=== PATIENT | female | born 1985 | race Caucasian/White ===

== ENCOUNTER 2023-08-27 09:44 | Outpatient (OUT) | payer OTHER, SELFPAY ==
[2023-08-27 10:06] LABS: Basophils Absolute Auto 0.1 10^3/uL (0.0-0.1); Basophils Percent Auto 1.2 % (0.2-2.0); Eosinophils Absolute Auto 0.1 10^3/uL (0.0-0.7); Eosinophils Percent Auto 1.7 % (0.9-7.0); Hematocrit 39.7 % (36.0-48.0); Hemoglobin 13.8 g/dL (12.0-16.0); Immature Granulocytes Abs Auto 0.01 10^3/uL (0.00-0.03); Immature Granulocytes Pct Auto 0.2 % (0.0-0.5); Lymphocytes Percent Auto 33.9 % (20.5-60.0); Mean Corpuscular HGB Conc 34.8 g/dL (29.9-35.2); Mean Corpuscular Hemoglobin 29.7 pg (26.7-34.0); Mean Corpuscular Volume 85.6 fL (81.0-99.0); Mean Platelet Volume 10.2 fL (9.5-13.5); Monocytes Absolute Auto 0.5 10^3/uL (0.3-0.8); Monocytes Percent Auto 8.7 % (1.7-12.0); Neutrophils Absolute Auto 3.1 10^3/uL (1.4-6.5); Neutrophils Percent Auto 54.3 % (43.0-75.0); Platelet Count 179 10^3/uL (150-450); Red Blood Count 4.64 10^6/uL (4.20-5.40); Red Cell Distribution Width 12.4 % (11.0-15.0); White Blood Count 5.8 10^3/uL (4.0-11.0)
[2023-08-27 10:15] LABS: Estimated Average Glucose 103 mg/dL; Glycohemoglobin A1C 5.2 % (4.5-6.2)
[2023-08-27 11:06] LABS: Potassium 4.1 mmol/L (3.5-5.1); Sodium 139 mmol/L (136-145)
[2023-08-27 11:07] LABS: Anion Gap 10.7; Calcium 8.8 mg/dL (8.5-10.1); Carbon Dioxide 30.4 mmol/L (21.0-32.0); Chloride 102 mmol/L (98-107); Estimated GFR (African America >60 (>=60); Estimated GFR (Non-African Ame >60 (>=60); Glucose 87 mg/dL (74-106)
[2023-08-27 11:08] LABS: Alanine Aminotransferase 24 U/L (14-59); Albumin Globulin Ratio 1.2; Alkaline Phosphatase 96 U/L (46-116); Aspartate Amino Transferase 13 U/L (15-37); Bilirubin Total 0.4 mg/dL (0.2-1.0); Globulin 3.3 g/dL; Total Protein 7.3 g/dL (6.4-8.2); Triglycerides 81 mg/dL (<=150); VLDL CHOLESTEROL 16.2 mg/dL
[2023-08-27 11:09] LABS: Chol HDL Ratio 2.5; Cholesterol 198 mg/dL (<=200); Free T3 3.21 pg/mL (2.18-3.98); HDL Cholesterol 80 mg/dL (40-60); Thyroid Stimulating Hormone 1.228 uIU/mL (0.358-3.740)
== END 2023-08-27 09:45 | disposition home or self-care (01) ==
LOC: LAB 09:51
PROVIDERS: PCP Family Medicine; Visit Provider Family Medicine
DX: Z00.00 Encounter for general adult medical examination without abnormal findings (principal)
CPT/HCPCS: 36415; 80053; 80061; 83036; 84436; 84443; 84481; 85025

== ENCOUNTER 2023-10-21 22:24 | Emergency (ER) | payer OTHER, SELFPAY ==
[2023-10-21 22:40] VITALS: BP 127/71; PULSE 81; RESP 16; TEMP 37.1; O2SAT 99
--- NOTE | 2023-10-22 00:41 | ED.GENADUL1 ---
HPI - General Adult General Chief complaint: Headache Stated complaint: Headache Time Seen by Provider: 10/22/23 00:36 Source: patient Mode of arrival: walk-in Limitations: no limitations History of Present Illness HPI narrative: presents complaining of a migraine. history of migraine. Took Fioricet and it did not help this time. has nausea but no vomiting . No fever. No paresthesia of her upper or lower extremities Related Data Home Medications Medication Instructions Recorded Confirmed pknxfppjvu-snxegfwrhvvvv-cmvzslkg tab 10/21/23 50 mg-325 mg-40 mg tablet pantoprazole 40 mg tablet,delayed mg PO 10/21/23 release quetiapine 50 mg tablet mg 10/21/23 rosuvastatin 5 mg tablet mg 10/21/23 sertraline 100 mg tablet mg 10/21/23 Allergies Allergy/AdvReac Type Severity Reaction Status Date / Time penicillin G Allergy Verified 10/21/23 22:43 meperidine [From Demerol] AdvReac Verified 10/21/23 22:43 Review of Systems ROS Status of ROS 10 or more systems reviewed and unremarkable except as noted in history and below PFSH PFS Social History Smoking status: Never smoker Exam Constitutional Vital Signs, click to edit/add: Last Vital Signs Temp 98.7 F 10/21/23 22:40 Pulse 72 10/22/23 02:08 Resp 16 10/22/23 02:08 BP 127/71 10/21/23 22:40 Pulse Ox 98 10/22/23 02:08 O2 Del Method Room Air 10/21/23 22:40 Common normals: no apparent distress, average body habitus, oriented x3, no limitations, healthy appearing, alert and well nourished Eye Common normals: PERRL, EOMs intact bilaterally and conjunctivae normal Respiratory Common normals: normal respiratory effort, no retractions, no use of accessory muscles and clear to auscultation bilaterally Cardio Common normals: regular rate, regular rhythm, S1 normal heart sound and S2 normal heart sound GI Common normals: Normal to inspection, nondistended, normoactive bowel sounds present and soft to palpation Extremity Common normals: normal to inspection and full ROM Neuro Common normals: oriented x3, CN's II-XII intact bilaterally, moves all extremities and no focal motor deficits Psych Appearance: grossly normal Course Vital Signs Vital signs: Vital Signs Temperature 98.7 F 10/21/23 22:40 Pulse Rate 81 10/21/23 22:40 Respiratory Rate 16 10/21/23 22:40 Blood Pressure 127/71 10/21/23 22:40 Pulse Oximetry 99 10/21/23 22:40 Oxygen Delivery Method Room Air 10/21/23 22:40 Temperature 98.7 F 10/21/23 22:40 Pulse Rate 72 10/22/23 02:08 Respiratory Rate 16 10/22/23 02:08 Blood Pressure 127/71 10/21/23 22:40 Pulse Oximetry 98 10/22/23 02:08 Oxygen Delivery Method Room Air 10/21/23 22:40 Medical Decision Making MDM Narrative Medical decision making narrative: patient presents with migraine headache. similar to past migraines. exam normal. Treated successfully and is now requesting to go home. discharged home to follow up with her doctor Lab Data Labs: Lab Results 10/22/23 Range/Units 00:48 WBC 7.8 (4.0-11.0) 10^3/uL RBC 4.78 (4.20-5.40) 10^6/uL Hgb 14.0 (12.0-16.0) g/dL Hct 41.5 (36.0-48.0) % MCV 86.8 (81.0-99.0) fL MCH 29.3 (26.7-34.0) pg MCHC 33.7 (29.9-35.2) g/dL RDW 12.3 (11.0-15.0) % Plt Count 218 (150-450) 10^3/uL MPV 10.7 (9.5-13.5) fL Neut % (Auto) 48.2 (43.0-75.0) % Lymph % (Auto) 40.9 (20.5-60.0) % Baldwin % (Auto) 8.1 (1.7-12.0) % Eos % (Auto) 1.7 (0.9-7.0) % Baso % (Auto) 1.0 (0.2-2.0) % Neut # (Auto) 3.8 (1.4-6.5) 10^3/uL Lymph # (Auto) 3.2 (1.2-3.8) 10^3/uL Baldwin # (Auto) 0.6 (0.3-0.8) 10^3/uL Eos # (Auto) 0.1 (0.0-0.7) 10^3/uL Baso # (Auto) 0.1 (0.0-0.1) 10^3/uL Abs Immat Gran (auto) 0.01 (0.00-0.03) 10^3/uL Imm/Tot Granulo (auto) 0.1 (0.0-0.5) % Sodium 140 (136-145) mmol/L Potassium 3.8 (3.5-5.1) mmol/L Chloride 103 (98-107) mmol/L Carbon Dioxide 30.2 (21.0-32.0) mmol/L Anion Gap 10.6 BUN 15.0 (7.0-18.0) mg/dL Creatinine 0.70 (0.55-1.02) mg/dL Est GFR ( Amer) >60 (>=60) Est GFR (Non-Af Amer) >60 (>=60) BUN/Creatinine Ratio 21.4 Glucose 97 (74-106) mg/dL Calcium 9.1 (8.5-10.1) mg/dL Discharge Plan Discharge Chief Complaint: Headache Clinical Impression: Migraine Patient Disposition: Home, Self-Care Prescriptions / Home Meds: No Action sertraline 100 mg tablet ofppiibqfw-wifmlgnjffbaf-eols 50-325-40 mg tablet pantoprazole 40 mg tablet,delayed release (DR/EC) PO rosuvastatin 5 mg tablet quetiapine 50 mg tablet Instructions: Migraine Headache (ED) Stand Alone Forms: Portal Instructions Referrals: Silverio Mtz MD [Primary Care Provider] - 1 week
[2023-10-22] MEDS: MAGNESIUM SULFATE IN WATER 2 GM/50 ML PREMIX IV (00:56)
[2023-10-22] MEDS: METHYLPREDNISOLONE SOD SUCC PF 125 MG/2 ML VIAL IVP (00:57)
[2023-10-22] MEDS: DIPHENHYDRAMINE HCL 50 MG/ML (1ML) VIAL IV (00:57)
[2023-10-22 01:01] LABS: Basophils Absolute Auto 0.1 10^3/uL (0.0-0.1); Eosinophils Absolute Auto 0.1 10^3/uL (0.0-0.7); Eosinophils Percent Auto 1.7 % (0.9-7.0); Hematocrit 41.5 % (36.0-48.0); Immature Granulocytes Abs Auto 0.01 10^3/uL (0.00-0.03); Immature Granulocytes Pct Auto 0.1 % (0.0-0.5); Lymphocytes Absolute Auto 3.2 10^3/uL (1.2-3.8); Lymphocytes Percent Auto 40.9 % (20.5-60.0); Mean Corpuscular HGB Conc 33.7 g/dL (29.9-35.2); Mean Corpuscular Hemoglobin 29.3 pg (26.7-34.0); Mean Corpuscular Volume 86.8 fL (81.0-99.0); Mean Platelet Volume 10.7 fL (9.5-13.5); Monocytes Absolute Auto 0.6 10^3/uL (0.3-0.8); Monocytes Percent Auto 8.1 % (1.7-12.0); Neutrophils Absolute Auto 3.8 10^3/uL (1.4-6.5); Neutrophils Percent Auto 48.2 % (43.0-75.0); Platelet Count 218 10^3/uL (150-450); Red Blood Count 4.78 10^6/uL (4.20-5.40); Red Cell Distribution Width 12.3 % (11.0-15.0); White Blood Count 7.8 10^3/uL (4.0-11.0)
[2023-10-22 01:08] LABS: Anion Gap 10.6; BUN Creatinine Ratio 21.4; Calcium 9.1 mg/dL (8.5-10.1); Carbon Dioxide 30.2 mmol/L (21.0-32.0); Chloride 103 mmol/L (98-107); Estimated GFR (African America >60 (>=60); Estimated GFR (Non-African Ame >60 (>=60); Glucose 97 mg/dL (74-106); Potassium 3.8 mmol/L (3.5-5.1); Sodium 140 mmol/L (136-145)
[2023-10-22] MEDS: METOCLOPRAMIDE HCL 10 MG/2 ML VIAL IVP (01:20)
[2023-10-22 02:08] VITALS: PULSE 72; RESP 16; O2SAT 98
[2023-10-22 02:19] VITALS: BP 126/80; PULSE 67; RESP 16; O2SAT 98
== END 2023-10-22 02:20 | disposition home or self-care (01) ==
PROVIDERS: Emergency Provider Internal Medicine; PCP Family Medicine
DX: G43.909 Migraine, unspecified, not intractable, without status migrainosus (principal); Z79.899 Other long term (current) drug therapy
CPT/HCPCS: 36415; 80048; 85025; 96365; 96375; 99284; J2930

== ENCOUNTER 2023-11-27 15:16 | Outpatient (OUT) | payer OTHER, SELFPAY ==
--- NOTE | 2023-11-27 15:22 | MR_ITS ---
The [address] [address] Patient Name: GRETA BEGUM MRN: [id number] date: 1985 Sex: F Assigned Patient Location: MRI Current Patient Location: Accession/Order Number: [id number] Exam Date: 11/27/2023 15:30 Report Date: 11/28/2023 05:10 At the request of: SADIA PARISI Procedure: MR head/brain wo con EXAM: MR head/brain wo con INDICATION: 38 years old; Female. Symptom/Location/Duration: migraine G43.909 chronic migraine, worsening for 2 years. TECHNIQUE: Multiplanar MRI brain was performed without contrast administration.. Comparison: None. FINDINGS: POSTOPERATIVE CHANGES: None. BRAIN PARENCHYMA: No restricted diffusion. No mass effect. No midline shift or herniation. No hemosiderin deposition. There is normal shen/white differentiation. VENTRICLES/EXTRA-AXIAL: Normal for patient's age. VESSELS: There is flow void seen in the distal vertebral and basilar arteries as well as the distal internal carotid arteries. This study cannot exclude the presence of an intracranial aneurysm. SINUSES/MASTOIDS: The visualized sinuses are clear. Mastoids and middle ears are clear. MSK: Bone marrow signal is within normal limits. OTHER: None. MR/MR head/brain wo con IMPRESSION: 1. No restricted diffusion, mass effect, or hemosiderin deposition. Electronically authenticated by: SOSA WILL Date: 11/28/2023 05:10
--- OUTSIDE RECORDS SUMMARY | 2023-11-27 15:38 | XMS_ITS | CCD ---
Author Name Unknown Address [address] [place] [address] Organization [facility] Care Team Providers Care Guidance Services Coordinator Name Role Phone Sadia Mtz Primary Care Physician Sadia Mtz Unavailable Emily Andrade Unavailable DR SADIA MTZ Primary Care Unavailable ISAK, DR MCCULLOUGH Admitting Unavailable ISAK, DR MCCULLOUGH Attending Unavailable ISAK, DR MCCULLOUGH Consulting Unavailable KRYSTYNA NUNEZ Attending Unavailable JOSH .KRYSTYNA Admitting Unavailable ELIJAH, DR TARA Langley Consulting Unavailable ISAK, DR MCCULLOUGH Primary Care Unavailable KRYSTYNA NUNEZ Consulting Unavailable ISAK, DR MCCULLOUGH Admitting Unavailable ISAK, DR MCCULLOUGH Attending Unavailable ISAK, DR MCCULLOUGH Consulting Unavailable ISAK, DR MCCULLOUGH Primary Care Unavailable STEFANO GUILLEN Attending Unavailable STEFANO GUILLEN Admitting Unavailable SAM, DR JUANITO Pizano Consulting Unavailable ISAK, DR MCCULLOUGH Primary Care Unavailable STEFANO GUILLEN Consulting Unavailable Krystyna Moreno Referring Unavailable JerricaeKrystyna Attending Unavailable Krystyna Moreno Attending Unavailable Krystyna Moreno MDarryl Referring Unavailable Jerricae Krystyna MDarryl Admitting Unavailable Krystyna Moreno Attending Unavailable Allergies Allergy Classification Reported Allergen(s) Allergy Type Date of Onset Reaction(s) Facility (4 sources) Meperidine; Translations: [meperidine] Drug Allergy Unknown [facility] (4 sources) Penicillin; Translations: [penicillin] Drug Allergy Unknown (qualifier value) [facility] (2 sources) Penicillin V Drug Allergy anaphylaxis [facility] Other (1 source) Meperidine Drug Allergy [facility] (1 source) Penicillins Drug allergy (disorder) [facility] Medications Current Medications Medication Drug Class(es) Dates Sig (Normalized) Sig (Original) Fioricet (5 sources) Barbiturate, Central Nervous System Stimulant, Methylxanthine Start: 03-20-2022 Fioricet Oral, q4hr, Refill(s) 0 Start Date: 03/20/22 Status: Ordered take 1 capsule by mouth every fo ur hours Esgic 50-325-40 MG 1 capsule as needed Orally every 4 hrs Active meloxicam 15 mg oral tablet (2 sources) Nonsteroidal Anti-inflammatory Drug take 1 tablet by mouth every twenty-four hours Mobic 15 MG 1 tablet Orally Once a day Active pantoprazole 40 mg delayed release oral tablet (4 sources) Proton Pump Inhibitor Start: take 1 mg by mouth once daily Protonix 40 mg Tab-DR mg tab(s), Oral, Daily, Refills(s) 0 Start Date: 03/20/22 Status: Ordered take 1 tablet by isabel th every twenty-four hours Protonix 40 MG 1 tablet Orally Once a day Active Protonix 40 mg Tab-DR (1 source) Start: 03-20-2022 take 1 mg by mouth once daily Protonix 40 mg Tab-DR mg tab(s), Oral, Daily, Refills(s) 0 Start Date: 03/20/22 Status: Ordered QUEtiapine 50 mg oral tablet (5 sources) Atypical Antipsychotic Start: 03-20-2022 take 1 mg by mouth twice daily SEROquel 50 mg Tab mg tab(s), Oral, BID, Refills(s) 0 Start Date: 03/20/22 Status: Ordered take 1 tablet by isabel th every twenty-four hours SEROquel 50 MG 1 tablet at bedtime Orally Once a day only take half Active rosuvastatin calcium 5 mg oral tablet (5 sources) HMG-CoA Reductase Inhibitor Start: 03-20-2022 take 1 mg by mouth once daily Crestor 5 mg Tab mg tab(s), Oral, Daily, Refills(s) 0 Start Date: 03/20/22 Status: Ordered take 1 tablet by isabel th every twenty-four hours Crestor 5 MG 1 tablet Orally Once a day Active sertraline 100 mg oral tablet (5 sources) Serotonin Reuptake Inhibitor Start: 03-20-2022 take 1 mg by mouth once daily Zoloft 100 mg Tab mg tab(s), Oral, Daily, Refills(s) 0 Start Date: 03/20/22 Status: Ordered take 2 tablets by [facility] every twenty-four hours Zoloft 100 MG 2 tablet Orally Once a day Active Completed/Discontinued Medications Medication Drug Class(es) Dates Sig (Normalized) Sig (Original) ciprofloxacin 500 mg oral tablet (2 sources) Quinolone Antimicrobial Start: 12-03-2022 take 1 tablet by mouth every twenty-four hours Cipro 500 mg Tab 500 mg = 1 tab(s), Oral, q24hr, Take 1 pill the day before the procedure and 1 pill after the procedure., # 2 tab(s), Refills(s) 0, Pharmacy: [facility] 1155, 161, cm, 10/02/22 9:51:00 EST, Height/Length Dosing, 52, kg, 10/02/22 9:51:00 EST, Weight Dosing Start Date: 12/03/22 Status: Ordered Triamcinolone (4 sources) Corticosteroid Start: 02-08-2022 Kenalog -40 mg Jan, 40 mg Start: 06-28-2021 Kenalog -40 mg Jun, 40 mg Problems Active Problems Problem Classification Problem Date Documented Date Episodic/Chronic Calculus of urinary tract (8 sources) Kidney stone; Translations: [Calculus of kidney] Onset: 03-20-2022 Episodic Genitourinary symptoms and ill-defined conditions (12 sources) Blood in urine; Translations: [Gross hematuria] Onset: 02-16-2022 Episodic Joint disorders and dislocations; trauma-related (4 sources) Patellofemoral stress syndrome; Translations: [Patellofemoral disorders, right knee] Chronic Unclassified (2 sources) CONTACT W/AND (SUSP) EXPOS COVID-19; Translations: [CONTACT W/AND (SUSP) EXPOS COVID-19] Onset: 03-28-2022 Unclassified (2 sources) Asymptomatic microscopic hematuria 10-02-2022 Viral infection (1 source) COVID-19; Translations: [COVID-19] Onset: 03-28-2022 Past or Other Problems Problem Classification Problem Date Documented Da te Episodic/Chronic Abdominal pain (1 source) Unspecified abdominal pain; Translations: [UNSPECIFIED ABDOMINAL PAIN] Onset: 02-19-2022 Episodic Other aftercare (1 source) Other [facility] (current[facility] drug therapy; Translations: [OTH SEPTIC T[employer] CLEANER CURRENT DRUG THERAPY] Onset: 02-19-2022 Episodic Other non-traumatic joint disorders (2 sources) Pain in right knee; Translations: [Acute pain of right knee] Episodic Residual codes; unclassified (1 source) Acquired absence of both cervix and uterus; Translations: [ACQUIRED ABSENCE BOTH CERVIX AND UTERUS] Onset: 02-19-2022 Episodic Unclassified (1 source) CONTACT W/AND (SUSP) EXPOS COVID-19; Translations: [CONTACT W/AND (SUSP) EXPOS COVID-19] Onset: 03-26-2022 Results Test Name Value Interpretation Reference Range Facility Coding Summary.on 12-20-2022 Coding Summary. [id number] Gh0bWw+PGhlYWQ+PE1FV DWpN96eiIFfuO2PL4dGU B2LHNWDZLIWZX1TDI5mj GN7KMqhX3YinlRn XnuftFNxLT30NQb6FDD1 fMtsUVkkyN6bdCNoT2f5 BwNvMO22pG70YWrkVWHn DbM9HwJyxozskJMl K9fgUuEqyYNkWkj+PHRh YmxlIHdpZHRoPScxMDAl YpSdmGgfVW8dGj2fLHKv LWNvbGxhcHNlOiBj w5hhBWUxIOebJW1faRrh A9QsmRK7QNLex1n9Wz10 dHI+LMRqTJG1xCgzHCnh j426OgQqr5hqWMP4 vOPpUWvwYSD9J61nz8T9 ICDhLFFpILY2xOD5mL4i iWjmsqygD2MhnYIpMvN2 VAB7tUApqD7hiWko utbbfN8jSls+L50ALW0Y PTUISW7IJvv4V1HvXdfr dHI+BX37SVVnRS60tJKj oHXpv2qlrSn4YvQd PNWcPYV7fWteLHmik9Az GYDwZ20jyISud9A6VOTh eKimhGZtOjUrqRI7nI2c AZryaabdr6oywvzo Foztx7aynr61wR80L79w LDleWWReCLK6HMKsIMJr tAynho7eeJ2oZb5+IDxj e0cku6kkxYe8WdIn UXJciwMnyYmwVNI3p6Ra Uq48G7IrxXomz7IyKxl3 bt48lKNbo4A2sGD9TJzv BGKslQ5jCFwfDyE0 PTDhArNdqO22cSVlSQky Vx9ejPviaOfrBM5iEXOd jythOYZfdZ0wRQRxaTQm hApyPY7jVAMeandf a142RoCtLBL8UBSaxNSr A2VwdI1xImNhLRPqBCSs C0MgmTYqVNczF778RNox SjM6EFApieDqI1De OFTqpWxzKvE3u7Z0Mw3D x7NbxvxmOLW5VXeaBGGs TiB6AkZwHzW9O7BcPqi9 TTDpoPmwTF0lQ7Hv DNGxilmawxulqEF3GSHr ENGekR87pRYdLBzfPd0z f9D9d519FDMiUORshV69 Vq7zeYuiFAPviQXS qH9zaahzz8lfoqhaYtXr MBMzAJs1MZn7OHAruDgs MaTiQNP3YcQ4DPB2cMUm yZ0osMvaupgycU8t Oyc+X55yvN7qTEQ5ILD4 mvhhHXPxwkOoPK89FK49 Y8VoKwsliHMvnTW+PGRp fpTfdPbbBS8xHkHr i2sqn2ItKAyvI6HhRXDh YHqwXid0EUWmIUN5eRO8 vQ9nAILlGDcaw6S8oHB6 X9MjddFbiy9ht8ec AQOfWYhcW13hfWIcu1P3 UMAmlRV5VOBsxVqiOuPq mO05Pqh+DXBhlTiun5Of Rixnz1kbh4qwmAj4 IjMwJSIgdmFsaWduPSJ0 p9BzSv44C04oGDcfLHFx NAFuWYKvCDAmvFsnxc8e pA1cHi0+PGNvbCB3 kZL6aD3hFAKlEsI8AQde A799ZvDuaNImDgecd2hk l5ftvXx6VdTvQGRrfeKp nZelDTL2r5MtVv71 I58dPQazATOmBIXkWTOh NZCbgOpvig6szZ3qKp9+ HM9fl8aqyd91hU92hNT+ QAIaEHD1sZpkHVzp CMRnhR9hWCfoPaQ9CEBx IzIgyY05hXFjCEhmCu6z cDowyMxuRH3gZXArcapk k822BjLhx4huELRe bAOjAIylCCY2M79jf7M7 MRQhZDYyCBR5lXH9qK9w bGlnbjogbGVmdDsgdmVy iPguZKcpNQzvK837 IHRvcDsnPlBhdGllbnQg DzVuKKa7C6UbZdq3JVWa fVycXX5ukNJzMWalRd2m eQhlhCwlVE7wICMj bygcv446NrMch6aiJZDd yWDhLJzwRJU5Z56pw5Q3 JDTkNBWmZSP9zWD3hP1p bGlnbjogbGVmdDsg zkIecDhgBCvvMFmoP662 IHRvcDsnPkJpcnRoIERh lBW6WC08AV20nLDdg9W1 hYQ7V6FnBXOxfbmi nygbaSN2ISBxMVKjrZ09 Ms2ufJvuDi0qVADaIRQ8 IJXqmRBeJ7JgoK2zFiDh SVDxSFLjN0KrySCw AQzaO834KPamIdD1EBJv emXbA5MkFMIggCzxChL5 p6Q9Ld9SC9E2KX08XZ05 aRZdh1A6bCD3Z0Xn DOYeqvilbqxciAH8BYFp OICggN78Gh6pbLgsRj4q QPKtYZF2CRSmrYSyG9Tf dK0bHmSsJGAdKFYx E8AfyKUvVJkjB091CQtz YjB3WYPkgyGeU7EvCLZz lWreVlY0r0J4Me6MVXa6 LJ12YZ07fPOmh8W3 wZG3X4FwEQGkvqdocfle vMX1QWUkDGWxaB81Iu7b yBggOu9nOXPgURG7XRDq yXWtU1IwjD7nIeGu GHPaNQSnN3AlqIJkFAeg G539JQbaHkF4HVKxxiJv S2MbMWChmAruBoK1i7F2 La9UZGTbHM52TAO2 lME5AA48NV55B4PrKisu dGFibGU+PHRhYmxlIHdp ZHRoPScxMDAlJyBzdHls HN4rIx1tHWFvATPm qFkjnUJmRgZnf1icLREq RFivPS1ehNkqL0NjjCT6 DHLmk8e4Wo05F23rA0Oe dXA+GMKadKI6aFV9 wS7vJuZvEmJ7WXxlG738 LxLhfQIqJivuz1pmk4op lLr3RyY4JOWlghSqwIdx KUR5p4EhDz88N80u IHdpZHRoPSIxNSUiIHZh mMfjeb7tbQ6fDy3+PGNv uTN8jDR7hV2dNhGtWjC7 BJivI779FzDxkWLq Kazlm9jmv8myyYs8SlOv BOHkonQedQbrGJK3n1Pk Mb69I3LnnFgtb0MxKhv8 zx18kDQfs1A5gGQ2 V6KhIRQwxeturXJmnVit UX0xDFOnbvxwAOOcrR7f SOKuT3f1DwHiQeB5TAhu V3RacmM0IGIhaVWb FOwgUNQ2S49xl4Y8EQNk RRBrREF0tAR4gT7ifOua bjogbGVmdDsgdmVydGlj FWlvDObbL143HETr yGwsPUCvlF6uZVMduNLv tZncZM4aCFLgnjhdCkYE HoBmSAULMJKCZK9RBDZM LB66KT89vVHcz4P6 eFH8D9CsKREpyqecmuky fHR6HOOcPUDkzO18wTOb IEnmWp8db9J2j718SHEf FXZzdA99Gj1wqGfd AVBrqZSMuT3zubyij1pp awioPjGjVXLtCFh4QZn8 EUNguWopBaWyOFF4QaJ9 RTT6qZHgxP7nlCrr crtlnO3oFuu+MDgvMTEv SLo6TWyzoHZ+PHRkIHN0 kXwtEVnhPLFvhJ8pAEXs Q3t9UbGbKgS4NBil S8NbMWEemncmIw08iH4f OwNpObQ8KAquQ3YkatT4 EDMesNIaQVulDWO9S70y l9V4SSJxUNFgOMC0 yXK0cI3woJgpprokkJWt dDsgdmVydGljYWwtYWxp I520CHVdoKffGdU6BRhm LQBgWI07ZF63zLTv s7Y9lGG8K6LwZGHfwszr yjxryJJ0CMTuTRExaH43 sLXsNTjtSn0ag8J8n151 BMStECCmuH84Tt9i xBxhNAAxiYXTiG6zveot s9nfngqsPdUiGBZnINy6 PHb0PBUotEpaJzApKCP8 BdA6VXX5sUPwyP9b wCociviqhI2yEmx+RmVt QMxeZU46EM40kJVfu6W8 pCE5C9QcMNPrxrafiylx uAT8HLUcNYSjiZ20 xULuXTjoCa5ll7X5d113 NZHbEPNieO74Tp2rdVef WMOyjVUQtP7qtqfrj4oa cjogIzAwMDAwMDt0 GYj0LAQrpEdgViYiMYU3 LiJ0ELT0zLWapU9zwAcl khhmvN3cCoo+C5M2zGW6 aWVudDwvdGQ+PC90 ud58Y6HwPssfHkw9NWKp VBM6hTY2hS0vWASyPTts r6L1vPA2U3NtloJnov0x h3wkWDLlEQxtE09d tXPsb9D4TQWrqAK6RBNx vNnoMaTccU55Nzy+PGNv zFuyv6UcKlsmx4cvs8rj wQn6XrGyALKmpoAa dIegQPL7e2FzHw89U51b IHdpZHRoPSIzMCUiIHZh qGrupj0ayH1zEr0+PGNv gXR3vDZ5aT4pAvKd CkD3LQbwQ517QiLauTMy Hacmv5jxx5acnMw1KpAr PAWeztAymMzrXNM0p4Ph Jq69K5JypOmrk7Hw Ord0ky82tXLvx8B4dYU8 F2IjNTMzbwldzAXyiBpu GO3uGUQwokljVWOhqC6v BVAeP7j7PgObWsR4 KQxvZ9ApdeY5URZkcBNj GNZloEHXeO7frbvmy9gi nhvhLoGbDZUfSJw9YJq9 LWFsaWduOiBsZWZ0 BrX8FHW2jPQzzI6alSud qlwvxI2kPfq+HMo1q6ot iQRuLW0eeON7SJ59BW53 aLXgj0I2kRG2E2Pp AMDazzowzsiicDB5QJRe IMBniS61Xr2coZmzKf8k APZwJCB0IHFjyDFiS8Uc wT3yIhXzTXTwYXKr X8GpvYZdEVkbV610HFfp HjZ0VLMvwuIhY3NhEDGq mDkuBiF2j3L1Ir0SDO90 YR53RQ29bSNwt1R7 nVQ1D8HjFZFhxxgffomg hBK0YTCmYZMgiV80Jz5j bImnNh6dVEEbFUZ8ALAk mAAsT3VfxC7eLuEy YSXfMUArR2JjhZXmBSux R239WHkoPpN4DQOruhDe L8KiOETnlUcnTlM4p0A7 Do6EOi05RR03RJ84 pGObz3F7vRA4Z5BiZTTx doyvlnqzqJB1KTDvYTPm gS48Tr0xiWjzAb7mRBQm LQH9YDFxoTXnC4Fs wC6jNjWeJOVkWONbD6Aa lGMcYVmlR405JFcxVbW0 FGZfquPfD9KqYCHzfMzr KlY5n8B2Ww0CRTtk ufv0B4QmQqsldJI+PC90 RXUeZJ51iDLzdHDeo9xk vIu9UyHzTDUzJCA9qAcr LJsjx2VyDKWxU83t bGFw (more content not included)... Normal [facility] Consent for Procedure/Surger yon 12-19-2022 Consent for Procedure/Surgery [id number] #1.00CD:127 Normal [facility] IntraOperative Documentson 0 12-19-2022 IntraOperative Documents [id number] #1.00CD:127 Normal [facility] Consent for Treatmenton 11-25 Consent for Treatment [id number] #1.00CD:127 Normal [facility] Inpatient Patient Summaryon 12-16-2022 Inpatient Patient Summary [address] [address] Clinical Summary Person Information Name: EMILY BEGUM Age: 37 Years : 1985 Sex: Female PCP: Sadia Mtz MD Marital Status: Race: White Ethnicity: Non- or Language: Greenlandic Visit Id: Visit Reason: HX RECURRENT UTI MICROSCOPIC HEMATURIA Speciality: Acuity: Enc Type: Outpatient Med Service: Surgery Arrival: 12/16/2022 08:34:49 Discharge: Dispo Type: Address: [address] [place] [id number] Provider Notes: Diagnosis: Asymptomatic microscopic hematuria; History of recurrent UTIs Problems Active Asymptomatic microscopic hematuria History of recurrent UTIs Kidney stones Smoking Status: Functional Status: Sensory Deficits: History of Falls: Mobility Assistance Prior to Admission: ADLs: Current Level of Assistance for Self-Care/Mobility: Cognitive Status: Allergies meperidine (Unknown) penicillin (Unknown) Laboratory or Other Results This Visit (last charted value for your 12/16/2022 visit) No Laboratory or Other Results This Visit Measurements: Height: Weight: Blood Pressure: Not Valued / Not Valued BMI: Procedures No Procedures Documented Immunizations No Immunizations Documented This Visit Final Med List: APAP/butalbital/caff eine (Fioricet) By Mouth every 4 hours. ciprofloxacin (Cipro 500 mg Tab) 1 Tablets By Mouth every 24 hours. Take 1 pill the day before the procedure and 1 pill after the procedure.. Refills: 0. pantoprazole (Protonix 40 mg Tab-DR) By Mouth every day. quetiapine (SEROquel 50 mg Tab) By Mouth 2 times a day. rosuvastatin (Crestor 5 mg Tab) By Mouth every day. sertraline (Zoloft 100 mg Tab) By Mouth every day. Care Team Members: Attending Physician: Krystyna Moreno MD Consulting Physician: Referring Physician: Krystyna Moreno MD Follow up: With: Address: When: Krystyna Moreno [address] [place] [phone] Business (1) [address], [place] [address], [place] [phone] Business (1) Comments: Office to schedule follow up in 3-6 months Type Location Start [facility] Office Visit [facility] 10/08/2023 10:00 AM 10/08/2023 10:15 AM Confirmed Patient Education Information: EU - Cystoscopy Discharge Instructions (CUSTOM) Normal [facility] Main OR Intraoperative Recor don 12-16-2022 Main OR Intraoperative Record IntraOp Document Type FTURO Summary Primary Physician: Krystyna Moreno MD Finalized Date/Time: 12/16/22 09:31:42 Pt. Name: EMILY BEGUM/Sex: 1985 Female Med Rec #: [id number] Physician: Krystyna Moreno MD Financial #: [id number] Pt. Type: O Room/Bed: / Admit/Disch: 12/16/22 08:34:49 - Institution: Case Times FTURO Entry 1 Patient Times In Room 12/16/22 09:08:00 Out Room 12/16/22 09:30:00 Procedure Times Start 12/16/22 09:19:00 Stop 12/16/22 09:27:00 Anesthesia Times Last Modified By: Bart REGAN, SOUMYA, Crystal 12/16/22 09:23:49 Case Attendance FTURO Entry 1 Entry 2 Entry 3 Case Attendee Krystyna Moreno MD RN, PATTIEOR, Mau SANON, Sherley Rojas Role Performed Surgeon - Primary Food Preparation Worker - Primary Scrub - Primary Time In 12/16/22 09:08:00 12/16/22 09:08:00 12/16/22 09:08:00 Time Out 12/16/22 09:30:00 12/16/22 09:30:00 12/16/22 09:30:00 Procedure CYSTOSCOPY LOCAL(.) CYSTOSCOPY LOCAL(.) CYSTOSCOPY LOCAL(.) Comments Last Modified By: Bart RN, CNOR, Bart RN, PATTIEOR, Bart RN, PATTIEOR, Crystal 12/16/22 Crystal 12/16/22 Crystal 12/16/22 09:23:50 09:23:50 09:23:50 Surgical Procedures FTURO Entry 1 Procedure Description Procedure CYSTOSCOPY LOCAL Modifiers . Surgeon Description cysto Primary Procedure Yes Primary Surgeon Krystyna Moreno MD Start 12/16/22 09:19:00 Stop 12/16/22 09:27:00 Anesthesia Type Local Surgical Service Urology Wound Class 2 - Clean-Contaminated Last Modified By: SOUMYA Arriaag RN, Ruthann 12/16/22 09:23:51 General Case Data FTURO Pre-Care Text: Classifies surgical wound, implements aseptic technique, initiates traffic control Entry 1 Case Information OR URO 1 FT Case Level None Wound Class 2 - Clean-Contaminated Specialty Urology Preop Diagnosis HX RECURRENT UTI Postop Same As Preop No MICROSCOPIC HEMATURIA Postop Diagnosis bladder stones Outcomes Met? Yes Last Modified By: SOUMYA Arriaga RN, Ruthann 12/16/22 09:23:29 Post-Care Text: The patient is free from signs and symptoms of infection EU IntraOp - FTURO Pre-Care Text: Implements protective measures prior to operative or invasive procedure, confirms identity before the operative or invasive procedure, verifies operative procedure, surgical site, and laterality Entry 1 EU Perioperative Protocols Procedure(s) CYSTOSCOPY LOCAL(.) Patient Identity Birthday, ID Band Verified (select at Check, Patient least 2): Participation Consents / H and P HandP, Surgery/Procedure Operative Site N/A Verified Consent Marking Verified Surgical Site Yes Laterality Verified n/a Verified Procedure Verified Yes Correct Patient Yes Position Verified Availability Equipment, Medication Time Out Krystyna Moreno MD, Verified (If Participants SOUMYA Arriaga RN, Applicable) Mau Rojas CST, Sherley Reyna Time Out Complete 12/16/22 09:12:00 Allergies Reviewed? Yes Allergies Reviewed Self/Patient With Body Position Frog Legged Prep Agents Betadine Solution Skin. Condition Unable to Visualize Additional None Specimens Collected Vitals - EU Blood Pressure 98/70 Pulse 97 bpm Respirations 16 br/min SPO2 EBL 0 IandO - EU Total Intake 0 mL Total Output 0 mL Outcomes Met? Yes Last Modified By: SOUMYA Arriaga RN, Ruthann 12/16/22 09:20:21 Post-Care Text: The patient is free from signs and symptoms of injury caused by extraneous objects Sign Out FTURO Entry 1 Before Patient Leaves OR Nurse verbally Yes Nurse verbally n/a confirms with the confirms with the team the name of team that the procedure(s) instrument, sponge, recorded and needle counts are correct (or N/A) Nurse verbally n/a Nurse verbally n/a confirms with the confirms with the team how the team whether there specimen is labeled are any equipment (including patient problems to be name), if applicable addressed Sign Out Complete 12/16/22 09:29:00 Last Modified By: SOUMYA Arriaga RN, Ruthann 12/16/22 09:24:03 Case Comments Finalized By: SOUMYA Arriaga RN, Ruthann Document Signatures Signed By: SOUMYA Arriaga RN, Ruthann 12/16/22 09:24 SOUMYA Arriaga RN, Ruthann 12/16/22 09:31 Normal [facility] Main OR Preoperative Recordo n 12-16-2022 Main OR Preoperative Record Holding Area Document Type FTURO Summary Primary Physician: Krystyna Moreno MD Finalized Date/Time: 12/16/22 09:14:22 Pt. Name: XAVI BEGUMNATONI Valdez./Sex: 1985 Female Med Rec #: [id number] Physician: Krystyna Moreno MD Financial #: [id number] Pt. Type: O Room/Bed: / Admit/Disch: 12/16/22 08:34:49 - Institution: Case Times Holding FTURO Pre-Care Text: Verifies consent for planned procedure, identifies individual values and wishes concerning care, includes family members in perioperative teaching Secures patient's records' belongings, and valuables, maintains patient's dignity and privacy, and maintains patient confidentiality Entry 1 In Holding 12/16/22 08:44:00 Outcomes Met? Yes Last Modified By: Amy Rosales LPN 12/16/22 08:44:10 Post-Care Text: The patient participates in decisions affecting his or her perioperative plan of care The patient's right to privacy is maintained Surgery Checklist FTURO Entry 1 Patient Birthday, Patient Procedure History and Physical, Identification: Participation Verification: Surgical Consent, With Patient NPO after Midnight: No Date/Time: 12/16/22 08:44:00 Personal Items: Jewelry Personal Items clothes Comment: Limitations: na Complaints of Pain: No Pain Comment: na Skin Integrity Intact, [place], Warm, & Dry Vitals - EU Blood Pressure Pulse Respirations SPO2 RN Reviewed Yes Last Modified By: SOUMYA Arriaga RN, Ruthann 12/16/22 09:14:21 Finalized By: Bart REGAN, Crystal DOOLEY Document Signatures Signed By: Bobby TOLBERT Amy M 12/16/22 08:45 Amy Rosales LPN 12/16/22 08:45 SOUMYA Arriaga RN, Ruthann 12/16/22 09:14 Normal [facility] Operative Reporton Operative Report Patient: EMILY BEGUM Age: 37 years Sex: Female : 1985 Associated Diagnoses: None Author: Josh INFANTE, Krystyna Barillas Procedure Operative Information Details: Date/ Time: 12/16/2022 09:30:00. Pre-Op Dx: History of recurrent UTIs ([id number] Z87.440, Discharge, Medical), Asymptomatic microscopic hematuria (MOC03-JX R31.21, Discharge, Medical). Post-Op Dx: Same. Anesthesia Type: Local. Procedure: Local Cystoscopy. Complications: None. Risks/Benefits/Infor med Consent: Surgical risks, benefits, details of the procedure have been explained to the patient, Full informed consent has been obtained. Intraoperative Information Prepped: Patient is brought back to the endoscopy suite, Patient is placed in supine position, Patient prepped in the usual fashion with Betadine solution, 2% Xylocaine Jelly is placed per Urethra, After waiting several minutes the Cystoscope is introduced. The Urethra is: Normal. The Bladder is: Normal, Trabeculated None (0), Mild bladder neck hyperemia, squamous metaplasia. No bladder tumors, lesions or foreign bodies. The ureteral orifices: Show efflux of clear urine. Devices Implanted: None. Removal: Cystoscope is removed, The patient tolerated it well. Vaginal examination: Vaginal mucosa: There is mild vaginal atrophy. Small 1 mm skin tags vs wart on bilateral labia minora. Pt states she has always had these, no changes The urethra is patent. There are no masses or lesions. There is no urethral hypermobility and NIMA is not seen. She is able to correctly identify her pelvic muscles with coaching No significant POP. Non tender pelvic floor muscles. No masses. . Postoperative Information Discharge: Follow up arranged. Pt states prior eval by [employer] Claims Examiner neg, has always had skin lesions. Discussed recommended monitoring to ensure no changes, f/u [facility] oiler if this occurs. Follow up in 3-6 months . Normal [facility] Comment on above: Result Comment: Elec tronically Signed By: Krystyna Moreno MD\.br\Date and Time Signed: 12/16/22 09:33 EST Outpatient Surgery Discharge Instructionon 12-16-2022 Outpatient Surgery Discharge Instruction [place] [id number] Patient Discharge Instructions PERSON INFORMATION Name: EMILY BEGUM Date of : 1985 Current Date: 12/16/2022 09:29:35 PHYSICIANS Admitting Physician: Krystyna Moreno MD Comment: Discharge Diagnosis: Asymptomatic microscopic hematuria; History of recurrent UTIs EMILY BEGUM has been given the following list of follow-up instructions, prescriptions, and patient education materials: IF UNABLE TO CONTACT YOUR PHYSICIAN AND YOU FEEL IT IS AN EMERGENCY, GO TO THE NEAREST EMERGENCY ROOM OR CALL 911 Follow up: With: Address: When: Krystyna Moreno [address] [place] [address] [phone] Business (1) [address] [phone] [facility] (1) Comments: Office to schedule follow up in 3-6 months Type Location Start [facility] Office Visit [facility] [place] 10/08/2023 10:00 AM 10/08/2023 10:15 AM Confirmed Comment: PATIENT EDUCATION INFORMATION Instructions: Cystoscopy ? Voiding after the procedure: there may be some pain, burning, urgency, frequency and blood tinged urine following the procedure. These symptoms usually resolve within 2-5 days. Drink the amount of fluid it takes to keep the urine pink to yellow or clear in color. Drinking enough water and fluids will help to ease any discomfort after your procedure. ? If you are having problems that seem out of the ordinary, please call. ? If unable to contact your physician and you feel it is an emergency, go to the nearest emergency room or call 911 ? Diet ? you may resume your normal diet. ? Activity ? you may resume your normal activities ? Call if you have a fever over 100 degrees. ISHY STEPHANIE A, have received the attached patient education materials/instructio ns and have verbalized understanding: May we do a follow up call? Yes No I was present when discharge instructions were given Patient Signature Date Clinican/Nurse Signature Date You may receive a survey from [employer] asking you to rate your care experience. Your feedback is important and will help us understand what we do well and how we can improve the quality of care we provide to you, your loved ones and our community. It?s an honor to serve you. Thank you for choosing [facility] Normal [facility] Provider Letteron 11-21-2022 Provider Letter November 21, 2022 EMILY MORENO [address] [place] [id number] EMILY MORENO 1985 Dear Emily , We have been trying to reach you with no success to schedule your cystoscopy with Dr. Krystyna Moreno MD. is important that you return our call upon receiving this letter. Also, at the time of your call, please provide us with your current information. Thank you for your prompt attention to this matter. Sincerely, [facility] [address] [address] Normal [facility] INSULINon 10-03-2022 Insulin 7.2 uIU/mL Normal 2.6-24.9 [facility] Comment on above: Performed By: #### I NSULIN ####[facility] [address] [address]Dr. Rodger Munoz CBC AUTO DIFFon 10-02-2022 BASO # 0.1 103/ul Normal 0.0-0.1 [facility] Comment on above: Performed By: #### C BC ####[facility] [address] [address]Dr. Rodger Munoz Basophils/100 WBC (Bld) 1.1 % Normal 0.2-2.0 [facility] Comment on above: Performed By: #### C BC ####[facility] [address] [place], [place] [address]Dr. Rodger Munoz EO # 0.1 103/ul Normal 0.0-0.7 [facility] Comment on above: Performed By: #### C BC ####[facility] [address] [address]Dr. Rodger Munoz Eosinophils/100 WBC (Bld) 1.7 % Normal 0.9-7.0 [facility] Comment on above: Performed By: #### C BC ####[facility] [address] [address]Dr. Rodger Munoz Erythrocyte distribution width (RBC) [Ratio] 12.3 % Normal 11.0-15.0 [facility] Comment on above: Performed By: #### C BC ####[facility] [address] [place], [place] [address]Dr. Rodger Munoz Hematocrit (Bld) [Volume fraction] 41.8 % Normal 36.0-48.0 [facility] Comment on above: Performed By: #### C BC ####[facility] [address] [place] [address] [id number]. Rodger Munoz Hemoglobin (Bld) [Mass/Vol] 14.1 g/dL Normal 12.0-16.0 [facility] Comment on above: Performed By: #### C BC ####[facility] [address] [place] [id number]. Rodger Munoz IG # 0.01 10e3/ul Normal 0.00-0.03 [facility] Comment on above: Performed By: #### C BC ####[facility] [address] [place] [id number]. Rodger Munoz IG % 0.2 % Normal 0.0-0.5 [facility] Comment on above: Performed By: #### C BC ####[facility] [address] [address]Dr. Rodger Munoz LYMPH # 1.9 103/ul Normal 1.2-3.8 [facility] Comment on above: Performed By: #### C BC ####[facility] [address] [place] [address] [address]Dr. Rodger Munoz Lymphocytes/100 WBC (Bld) 36.3 % Normal 20.5-60.0 [facility] Comment on above: Performed By: #### C BC ####[facility] [address] [place] [id number]. Rodger Munoz MANUAL DIFF REQ NO Normal [facility] Comment on above: Performed By: #### C BC ####[facility] [address] [place] [id number]. Rodger Munoz MCH (RBC) [Entitic mass] 29.0 pg Normal 26.7-34.0 [facility] Comment on above: Performed By: #### C BC ####[facility] [address] [place] [id number]. Rodger Munoz MCHC (RBC) [Mass/Vol] 33.7 g/dL Normal 29.9-35.2 [facility] Comment on above: Performed By: #### C BC ####[facility] [address] [place] [id number]. Rodger Munoz MCV (RBC) [Entitic vol] 85.8 fL Normal 81.0-99.0 [facility] Comment on above: Performed By: #### C BC ####[facility] [address] [address]Dr. Rodger Munoz MONO # 0.3 103/ul Normal 0.3-0.8 [facility] Comment on above: Performed By: #### C BC ####[facility] [address] [place], [place] [address]Dr. Rodger Alexander Monocytes/100 WBC (Bld) 6.1 % Normal 1.7-12.0 [facility] Comment on above: Performed By: #### C BC ####[facility] [address] [place], [place] [address]Dr. Rodger Munoz NEUT # 2.9 103/ul Normal 1.4-6.5 [facility] Comment on above: Performed By: #### C BC ####[facility] [address] [place], [place] [address]Dr. Rodger Alexander Neutrophils/100 WBC (Bld) 54.6 % Normal 43.0-75.0 [facility] Comment on above: Performed By: #### C BC ####[facility] [address] [place], [place] [address]Dr. Rodger Alexander Platelet mean volume (Bld) [Entitic vol] 10.4 fL Normal 9.5-13.5 [facility] Comment on above: Performed By: #### C BC ####[facility] [address] [place], [place] [id number]. Rodger Alexander PLT 205 103/ul Normal 150-450 [facility] Comment on above: Performed By: #### C BC ####[facility] [address] [place], [place] [id number]. Rodger Alexander RBC 4.87 106/ul Normal 4.20-5.40 [facility] Comment on above: Performed By: #### C BC ####[facility] [address] [place], [place] [id number]. Rodger Munoz WBC 5.2 103/ul Normal 4.0-11.0 [facility] Comment on above: Performed By: #### C BC ####[facility] [address] [place] [address] [address]Dr. Rodger Munoz FREE THYROXINE INDEX T7on FTI 2.04 Normal 1.30-4.50 [facility] Comment on above: Performed By: #### T 7, LIPID, TSH, CMP #### [facility] [address] [address] [address] Rodger Munoz T3U 34.0 % Normal 30.0-39.0 [facility] Comment on above: Performed By: #### T 7, LIPID, TSH, CMP #### [facility] [address] [address] [address] Rodger Munoz T4 [Mass/Vol] 6.00 ug/dL Normal 4.80-13.90 [facility] Comment on above: Performed By: #### T 7, LIPID, TSH, CMP #### [facility] [address] [address] [address] Rodger Munoz GLYCOHEMOGLOBIN A1Con 2021 ADA RECOMMENDATION SEE BELOW Normal [facility] Comment on above: Result Comment: ADA RECOMMENDED LIMIT 4.0 - 6.0 ADA THERAPEUTIC TARGET < 7.0 ACTION SUGGESTED > 7.0 Performed By: #### A 1C #### [facility] [address] [address] [address] Rodger Munoz Glucose [Mass/Vol] 105 mg/dL Normal [facility] Comment on above: Performed By: #### A 1C #### [facility] [address] [address] [address] Rodger Munoz HbA1c (Bld) [Mass fraction] 5.3 % Normal 4.5-6.2 [facility] Comment on above: Performed By: #### A 1C #### [facility] [address] [address] [address] Rodger Munoz IRONon 10-02-2022 Iron [Mass/Vol] 75.0 ug/dL Normal 50.0-170.0 [facility] Comment on above: Performed By: #### I RUDDY ####[facility] [address] [place], [place] [address]XgDr. Rodger Munoz LIPID PROFILEon 10-02-2022 CHOL-HDL RATIO NORM SEE BELOW Normal [facility] Comment on above: Result Comment: 3.3 - 4.4 LOW RISK 4.4 - 7.1 AVERAGE RISK 7.1 - 11.0 MODERATE RISK >11.0 HIGH RISK Performed By: #### T 7, LIPID, TSH, CMP #### [facility] [address] [address] [address] Rodger Munoz Cholesterol [Mass/Vol] 216 mg/dL Critically high <=200 [facility] Comment on above: Performed By: #### T 7, LIPID, TSH, CMP #### [facility] [address] [address] [address] Rodger Munoz Cholesterol in HDL [Mass/Vol] 84 mg/dL Critically high 40-60 [facility] Comment on above: Performed By: #### T 7, LIPID, TSH, CMP #### [facility] [address] [address] [address] Rodger Munoz Cholesterol in LDL [Mass/Vol] 119.6 mg/dL Normal [facility] Comment on above: Performed By: #### T 7, LIPID, TSH, CMP #### [facility] [address] [address] [address] Rodger Munoz Cholesterol.total/Ch olesterol in HDL [Mass ratio] 2.6 {ratio} Normal [facility] Comment on above: Performed By: #### T 7, LIPID, TSH, CMP #### [facility] [address] [address] [address] Rodger Munoz HDL NORMAL > or = 60 mg/dl - LOW CARDIOVASCULAR RISK <40 mg/dl - HIGH CARDIOVASCULAR RISK Normal [facility] Comment on above: Performed By: #### T 7, LIPID, TSH, CMP #### [facility] [address] [address] [address] Rodger Munoz LDL CALC NORMAL SEE BELOW Normal [facility] Comment on above: Result Comment: <100 mg/dl OPTIMAL 100 - 129 mg/dl NEAR OR ABOVE OPTIMAL 130 - 159 mg/dl BORDERLINE HIGH 160 - 189 mg/dl HIGH >190 mg/dl VERY HIGH Performed By: #### T 7, LIPID, TSH, CMP #### [facility] [address] [address] [address] Rodger Munoz Triglyceride [Mass/Vol] 62 mg/dL Normal <=150 [facility] Comment on above: Performed By: #### T 7, LIPID, TSH, CMP #### [facility] [address] [address] [address] Rodger Munoz VLDL CALC 12.4 mg/dL Normal [facility] Comment on above: Performed By: #### T 7, LIPID, TSH, CMP #### [facility] [address] [address] [address] Rodger Munoz PROF 14(COMP METB)on 022 Albumin [Mass/Vol] 4.1 g/dL Normal 3.4-5.0 [facility] Comment on above: Performed By: #### T 7, LIPID, TSH, CMP #### [facility] [address] [address] [address] Rodger Munoz Albumin/Globulin [Mass ratio] 1.2 {ratio} Normal [facility] Comment on above: Performed By: #### T 7, LIPID, TSH, CMP #### [facility] [address] [address] [address] Rodger Munoz ALP [Catalytic activity/Vol] 108 U/L Normal 46-116 [facility] Comment on above: Performed By: #### T 7, LIPID, TSH, CMP #### [facility] [address] [address] [address] Rodger Munoz ALT [Catalytic activity/Vol] 15 U/L Normal 14-59 [facility] Comment on above: Performed By: #### T 7, LIPID, TSH, CMP #### [facility] [address] [address] [address] Rodger Munoz Anion gap [Moles/Vol] 6.5 mmol/L Normal [facility] Comment on above: Performed By: #### T 7, LIPID, TSH, CMP #### [facility] [address] [address] [address] Rodger Munoz AST [Catalytic activity/Vol] 11 U/L Critically low 15-37 [facility] Comment on above: Performed By: #### T 7, LIPID, TSH, CMP #### [facility] [address] [address] [address] Rodger Munoz Bilirubin [Mass/Vol] 0.4 mg/dL Normal 0.2-1.0 [facility] Comment on above: Performed By: #### T 7, LIPID, TSH, CMP #### [facility] [address] [place] [address] Dr. Rodger Munoz Calcium [Mass/Vol] 9.1 mg/dL Normal 8.5-10.1 [facility] Comment on above: Performed By: #### T 7, LIPID, TSH, CMP #### [facility] [address] [address] [address] Rodger Munoz Chloride [Moles/Vol] 101 mmol/L Normal 98-107 [facility] Comment on above: Performed By: #### T 7, LIPID, TSH, CMP #### [facility] [address] [place] [address] Dr. Rodger Munoz CO2 [Moles/Vol] 33.6 mmol/L Critically high 21.0-32.0 [facility] Comment on above: Performed By: #### T 7, LIPID, TSH, CMP #### [facility] [address] [place] [address] Dr. Rodger Munoz Creatinine [Mass/Vol] 0.65 mg/dL Normal 0.55-1.02 [facility] Comment on above: Performed By: #### T 7, LIPID, TSH, CMP #### [facility] [address] [place] [address] Dr. Rodger Munoz EGFR-AF ANGOLAN >60 Normal >=60 [facility] Comment on above: Performed By: #### T 7, LIPID, TSH, CMP #### [facility] [address] [address] [address] Rodger Munoz EGFR-NON AF ANGOLAN >60 Normal >=60 [facility] Comment on above: Performed By: #### T 7, LIPID, TSH, CMP #### [facility] [address] [place] [address] Dr. Rodger Munoz Globulin (S) [Mass/Vol] 3.3 g/dL Normal [facility] Comment on above: Performed By: #### T 7, LIPID, TSH, CMP #### [facility] [address] [place] [address] Dr. Rodger Munoz Glucose [Mass/Vol] 94 mg/dL Normal 74-106 [facility] Comment on above: Performed By: #### T 7, LIPID, TSH, CMP #### [facility] [address] [place] [address] Dr. Rodger Munoz Potassium [Moles/Vol] 4.1 mmol/L Normal 3.5-5.1 [facility] Comment on above: Performed By: #### T 7, LIPID, TSH, CMP #### [facility] [address] [place] [address] Dr. Rodger Munoz Protein [Mass/Vol] 7.4 g/dL Normal 6.4-8.2 [facility] Comment on above: Performed By: #### T 7, LIPID, TSH, CMP #### [facility] [address] [place] [address] Dr. Rodger Munoz Sodium [Moles/Vol] 137 mmol/L Normal 136-145 [facility] Comment on above: Performed By: #### T 7, LIPID, TSH, CMP #### [facility] [address] [place] [address] Dr. Rodger Munoz Urea nitrogen [Mass/Vol] 16.0 mg/dL Normal 7.0-18.0 [facility] Comment on above: Performed By: #### T 7, LIPID, TSH, CMP #### [facility] [address] [place] [address] Dr. Rodger Munoz Urea nitrogen/Creatinine [Mass ratio] 24.6 mg/mg Normal [facility] Comment on above: Performed By: #### T 7, LIPID, TSH, CMP #### [facility] [address] [place], [place] [address] Dr. Rodger Munoz TSHon 10-02-2022 TSH 1.112 uIU/mL Normal 0.358-3.740 [facility] Comment on above: Performed By: #### T 7, LIPID, TSH, CMP #### [facility] [id number] Rodger Munoz US KIDNEYSon 09-24-2022 US KIDNEYS EXAMINATION: US KIDNEYS HISTORY: Kidney stone COMPARISON: CT abdomen pelvis 02/16/2022 TECHNIQUE: Ultrasound examination was performed of the kidneys and urinary bladder. FINDINGS: RIGHT KIDNEY: No evidence of pelvocaliectasis, mass, or calculi. Normal renal cortical parenchymal echogenicity. Color Doppler demonstrates blood flow within the kidney. Kidney: 10.1 x 4.8 x 4.6 cm LEFT KIDNEY: Contains a 5 mm nonobstructing stone. No evidence of pelvocaliectasis or mass. Normal renal cortical parenchymal echogenicity. Color Doppler demonstrates blood flow within the kidney. Kidney: 9.8 x 3.7 x 3.9 cm BLADDER: No visible wall thickening, mass, or calculi. IMPRESSION: 1. Nonobstructing left nephrolithiasis. Electronically authenticated by: TARA NAVA Date: 2022-09-24 12:17 Normal [facility] XR KUB 1 VIEWon 09-24-2022 XR KUB 1 VIEW EXAMINATION: XR KUB 1 VIEW HISTORY: Kidney stone COMPARISON: CT abdomen pelvis 02/16/2022 FINDINGS: KIDNEY/URETER - RIGHT: No visible renal or ureteral calcifications. KIDNEY/URETER - LEFT: Small stone projecting over kidney. PELVIS: No visible ureteral stones. Stable pelvic calcifications compatible with phleboliths. BOWEL: No abnormal dilation or deviation. BONES: No acute abnormality. OTHER: Negative. No abnormal gaseous collections. IMPRESSION: 1. Nonobstructing left nephrolithiasis; also seen on prior CT study. Electronically authenticated by: TARA NAVA Date: 2022-09-24 10:50 Normal [facility] Covid-19 PCR (CVDTB)on SARS-CoV-2 (COVID-19) RNA EVY+probe Ql (Unsp spec) Detected Critically abnormal NOT DETECTED [facility] Comment on above: Result Comment: This test is not yet approved or cleared by the [place] FDA. When there are no FDA-approved or cleared tests available, and other criteria are met, FDA can make tests available under an emergency access mechanism called an Emergency Use Authorization (EUA). The EUA for this test is supported by the [employer] Operator of Health and Human Service's (HHS's) declaration that circumstances exist to justify the emergency use of in vitro diagnostics for the detection and/or diagnosis of the virus that causes COVID-19. This EUA will remain in effect (meaning this test can be used) for the duration of the COVID-19 declaration justifying emergency of IVDs, unless it is terminated or revoked by FDA (after which the test may no longer be used). Performed By: #### C VDTB #### [facility] [address] [place] [address] Dr. Rodger Munoz CBC AUTO DIFFon 02-16-2022 BASO # 0.1 103/ul Normal 0.0-0.1 [facility] Comment on above: Performed By: #### C BC #### [facility] [address] [place] [address] Dr. Rodger Munoz Basophils/100 WBC (Bld) 0.5 % Normal 0.2-2.0 [facility] Comment on above: Performed By: #### C BC #### [facility] [address] [place] [address] Dr. Rodger Munoz EO # 0.2 103/ul Normal 0.0-0.7 [facility] Comment on above: Performed By: #### C BC #### [facility] [address] [place] [address] Dr. Rodger Munoz Eosinophils/100 WBC (Bld) 1.1 % Normal 0.9-7.0 [facility] Comment on above: Performed By: #### C BC #### [facility] [address] [place] [address] Dr. Rodger Munoz Erythrocyte distribution width (RBC) [Ratio] 13.1 % Normal 11.0-15.0 [facility] Comment on above: Performed By: #### C BC #### [facility] [address] [place] [address] Dr. Rodger Munoz Hematocrit (Bld) [Volume fraction] 45.7 % Normal 36.0-48.0 [facility] Comment on above: Performed By: #### C BC #### [facility] [address] [place] [address] Dr. Rodger Munoz Hemoglobin (Bld) [Mass/Vol] 15.3 g/dL Normal 12.0-16.0 [facility] Comment on above: Performed By: #### C BC #### [facility] [address] [place] [address] Dr. Rodger Munoz IG # 0.07 10e3/ul Critically high 0.00-0.03 [facility] Comment on above: Performed By: #### C BC #### [facility] [address] [place] [address] Dr. Rodger Munoz IG % 0.5 % Normal 0.0-0.5 [facility] Comment on above: Performed By: #### C BC #### [facility] [address] [place] [address] Dr. Rodger Munoz LYMPH # 2.4 103/ul Normal 1.2-3.8 [facility] Comment on above: Performed By: #### C BC #### [facility] [address] [place] [address] Dr. Rodger Munoz Lymphocytes/100 WBC (Bld) 17.6 % Critically low 20.5-60.0 [facility] Comment on above: Performed By: #### C BC #### [facility] [address] [place] [address] Dr. Rodger Munoz MANUAL DIFF REQ NO Normal [facility] Comment on above: Performed By: #### C BC #### [facility] [address] [place] [address] Dr. Rodger Munoz MCH (RBC) [Entitic mass] 29.0 pg Normal 26.7-34.0 [facility] Comment on above: Performed By: #### C BC #### [facility] [address] [address] [address] Rodger Munoz MCHC (RBC) [Mass/Vol] 33.5 g/dL Normal 29.9-35.2 [facility] Comment on above: Performed By: #### C BC #### [facility] [address] [address] [address] Rodger Munoz MCV (RBC) [Entitic vol] 86.7 fL Normal 81.0-99.0 [facility] Comment on above: Performed By: #### C BC #### [facility] [address] [address] [address] Rodger Munoz MONO # 1.0 103/ul Critically high 0.3-0.8 [facility] Comment on above: Performed By: #### C BC #### [facility] [address] [place] [address] Dr. Rodger Munoz Monocytes/100 WBC (Bld) 7.2 % Normal 1.7-12.0 [facility] Comment on above: Performed By: #### C BC #### [facility] [address] [address] [address] Rodger Munoz NEUT # 10.0 103/ul Critically high 1.4-6.5 [facility] Comment on above: Performed By: #### C BC #### [facility] [address] [place] [address] Dr. Rodger Munoz Neutrophils/100 WBC (Bld) 73.1 % Normal 43.0-75.0 [facility] Comment on above: Performed By: #### C BC #### [facility] [address] [address] [address] Rodger Munoz Platelet mean volume (Bld) [Entitic vol] 10.2 fL Normal 9.5-13.5 [facility] Comment on above: Performed By: #### C BC #### [facility] [address] [place] [address] Dr. Rodger Munoz PLT 277 103/ul Normal 150-450 [facility] Comment on above: Performed By: #### C BC #### [facility] [address] [place], [place] [address] Dr. Rodger Munoz RBC 5.27 106/ul Normal 4.20-5.40 [facility] Comment on above: Performed By: #### C BC #### [facility] [address] [place], [place] [address] Dr. Rodger Munoz WBC 13.7 103/ul Critically high 4.0-11.0 [facility] Comment on above: Performed By: #### C BC #### [facility] [address] [place], [place] [address] ABD/PELVIS WO CONon 02-16 CT ABD/PELVIS WO CON EXAMINATION: CT ABD/PELVIS WO CON, 02/16/2022 1:52 PM EDT HISTORY: CALCULUS OF KIDNEY , abdominal pain, right flank pain, right lower quadrant pain, leukocytosis, hematuria COMPARISON: None. TECHNIQUE: CT scan of the abdomen and pelvis was performed without IV contrast. CT dose reduction technique was used, including Automated Exposure Control. FINDINGS: LUNG BASES: No visible pulmonary or pleural disease. LIVER: 5 mm hypodensity right hepatic dome axial image #3 2 small to characterize BILIARY: No dilatation or calcification. PANCREAS: No lesion, fluid collection, ductal dilatation, or atrophy. SPLEEN: No enlargement or focal lesion. ADRENALS: No mass or enlargement. KIDNEYS: Normal right. Nonobstructing 4 mm left nephrolith. No hydronephrosis or hydroureter BOWEL/MESENTERY: Nonobstructive bowel gas pattern. AORTA/VASCULAR: No aneurysm or dissection. RETROPERITONEUM: No mass or adenopathy. LYMPH NODES: No adenopathy. URINARY BLADDER: No visible focal wall thickening, lesion, or calculus. PELVIC ORGANS: Hysterectomy ABDOMINAL WALL: No mass or hernia. BONES: No bony lesion or fracture. OTHER: Negative. IMPRESSION: No obstructive uropathy Electronically authenticated by: JUANITO VARGAS Date: 2022-02-16 14:49 Normal [facility] CULTURE URINEon 02-16-2022 CULTURE URINE Culture Observations: LIGHT GROWTH OF MIXED GENITAL JED. NO POTENTIAL PATHOGENS SEEN. Normal [facility] Comment on above: Performed By: #### U RCX #### [facility] Laboratory [address] [address] [address] Rodger Munoz ER URINE PROFILEon 2 Bilirubin Ql (U) Negative Normal NEGATIVE The [facility] Comment on above: Performed By: #### U MICRO, ERUR ####[facility] [address] [address]Dr. Rodger Munoz Clarity (U) CLEAR Normal CLEAR [facility] Comment on above: Performed By: #### U MICRO, ERUR ####[facility] [address] [address]Dr. Rodger Munoz Color (U) LT. YELLOW Normal YELLOW [facility] Comment on above: Performed By: #### U MICRO, ERUR ####[facility] [address] [address]Dr. Rodger BENITEZAHD A micrscopic examination will be performed if indicated. Normal [facility] Comment on above: Performed By: #### U MICRO, ERUR ####[facility] Jongnmic[address] [place], [place] [address]Dr. Rodger Munoz Glucose Ql (U) Negative Normal NEGATIVE The [facility] Comment on above: Performed By: #### U MICRO, ERUR ####[facility] Q[address] [place], [place] [address]Dr. Rodger Munoz Hemoglobin Ql (U) LARGE Abnormal NEGATIVE The [facility] Comment on above: Performed By: #### U MICRO, ERUR ####[facility] [address] [place], [place] [address]Dr. Rodger Munoz Ketones Ql (U) Negative Normal NEGATIVE The [facility] Comment on above: Performed By: #### U MICRO, ERUR ####[facility] [address] [place], [place] [address]Dr. Rodger Munoz LEUKOCYTES LARGE Abnormal NEGATIVE [facility] Comment on above: Performed By: #### U MICRO, ERUR ####[facility] [address] [place], [place] [address]Dr. Rodger Munoz Nitrite Ql (U) Negative Normal NEGATIVE [facility] Comment on above: Performed By: #### U MICRO, ERUR ####[facility] [address] [address]Dr. Rodger Munoz pH (U) 7.0 [pH] Normal 5-9 [facility] Comment on above: Performed By: #### U MICRO, ERUR ####[facility] [address] [address]Dr. Rodger Munoz SPEC GRAVITY <=1.005 Abnormal 1.005-<=1.025 [facility] Comment on above: Performed By: #### U MICRO, ERUR ####[facility] [address] [place], [place] [address]Dr. Rodger Munoz UA PROTEIN TRACE Normal NEGATIVE/ TRACE [facility] Comment on above: Performed By: #### U MICRO, ERUR ####[facility] V[address] [place], [place] [address]Dr. Rodger Munoz UR MICRO IND INDICATED Normal [facility] Comment on above: Performed By: #### U MICRO, ERUR ####[facility] [address] [place], [place] [address]Dr. Rodger Munoz Urobilinogen Qn (U) 0.2 {Meghan'U}/dL Normal 0.2 - 1. 0 [facility] Comment on above: Performed By: #### U MICRO, ERUR ####[facility] Fyrlnurl[address] [place], [place] [address]Dr. Rodger Munoz PROF 14(COMP METB)on 022 Albumin [Mass/Vol] 4.4 g/dL Normal 3.4-5.0 [facility] Comment on above: Performed By: #### C MP ####[facility] Kil[address]ke[address] [place], [place] [address]Dr. Rodger Munoz Albumin/Globulin [Mass ratio] 1.3 {ratio} Normal [facility] Comment on above: Performed By: #### C MP ####[facility] [address] [place], [place] [address]Dr. Rodger Munoz ALP [Catalytic activity/Vol] 106 U/L Normal 46-116 [facility] Comment on above: Performed By: #### C MP ####[facility] [address] [id number]. Rodger Munoz ALT [Catalytic activity/Vol] 15 U/L Normal 14-59 [facility] Comment on above: Performed By: #### C MP ####[facility] [address] [id number]. Rodger Munoz Anion gap [Moles/Vol] 10.4 mmol/L Normal [facility] Comment on above: Performed By: #### C MP ####[facility] Ezlcvnwusr[address] [place], [place] [address]Dr. Rodger Munoz AST [Catalytic activity/Vol] 19 U/L Normal 15-37 [facility] Comment on above: Performed By: #### C MP ####[facility] [address]ox[address] [place], [place] [address]Dr. Rodger Munoz Bilirubin [Mass/Vol] 0.8 mg/dL Normal 0.2-1.3 [facility] Comment on above: Performed By: #### C MP ####[facility] Cvtx[address]klt[address] [place], [place] [address]Dr. Rodger Munoz Calcium [Mass/Vol] 9.3 mg/dL Normal 8.5-10.1 [facility] Comment on above: Performed By: #### C MP ####[facility] Sqcfgpvekf[address] [place], [place] [address]Dr. Rodger Munoz Chloride [Moles/Vol] 102 mmol/L Normal 98-107 [facility] Comment on above: Performed By: #### C MP ####[facility] Ki[address] [place], [place] [address]Dr. Rodger Munoz CO2 [Moles/Vol] 29.5 mmol/L Normal 22.0-30.0 [facility] Comment on above: Performed By: #### C MP ####[facility] X[address] [place], [place] [address]Dr. Rodger Munoz Creatinine [Mass/Vol] 0.62 mg/dL Normal 0.52-1.04 [facility] Comment on above: Performed By: #### C MP ####[facility] [address] [id number]. Rodger Munoz EGFR-AF ANGOLAN >60 Normal >=60 [facility] Comment on above: Performed By: #### C MP ####[facility] [address] [address]Dr. Rodger Munoz EGFR-NON AF ANGOLAN >60 Normal >=60 [facility] Comment on above: Performed By: #### C MP ####[facility] [address] [address]Dr. Rodger Munoz Globulin (S) [Mass/Vol] 3.5 g/dL Normal [facility] Comment on above: Performed By: #### C MP ####[facility] N[address]ok[address]qie[address] [place], [place] [address]Dr. Rodger Munoz Glucose [Mass/Vol] 81 mg/dL Normal 74-106 The [facility] Comment on above: Performed By: #### C MP ####[facility] V[address] [place], [place] [address]Dr. Rodger Munoz Potassium [Moles/Vol] 3.9 mmol/L Normal 3.4-5.0 [facility] Comment on above: Performed By: #### C MP ####[facility] Kx[address] [place], [place] [address]Dr. Rodger Munoz Protein [Mass/Vol] 7.9 g/dL Normal 6.1-8.2 [facility] Comment on above: Performed By: #### C MP ####[facility] [address] [place], [place] [address]Dr. Rodger Munoz Sodium [Moles/Vol] 138 mmol/L Normal 137-145 [facility] Comment on above: Performed By: #### C MP ####[facility] Bifycocjah[address] [place], [place] [address]Dr. Rodger Munoz Urea nitrogen [Mass/Vol] 13.0 mg/dL Normal 7.0-18.0 [facility] Comment on above: Performed By: #### C MP ####[facility] F[address]ps[address]ks[address] [place], [place] [address]Dr. Farzanehailyn Munoz Urea nitrogen/Creatinine [Mass ratio] 21.0 mg/mg Normal [facility] Comment on above: Performed By: #### C MP ####[facility] [address] [address]Dr. Rodger Munoz URINE MICROSCOPIC ONLYon BACTERIA TRACE Abnormal NONE SEEN [facility] Comment on above: Performed By: #### U MICRO, ERUR ####[facility] [address] [address]Dr. Rodger Munoz Bacteria identified Cx Nom (U) INDICATED Normal [facility] Comment on above: Performed By: #### U MICRO, ERUR ####[facility] Exp[address]equkix[address] [place], [place] [address]Dr. Rodger Munoz CAST SEEN Abnormal NONE SEEN [facility] Comment on above: Performed By: #### U MICRO, ERUR ####[facility] [address] [address]Dr. Rodger Munoz Crystals LM Nom (Urine sed) NONE SEEN Normal NONE SEEN [facility] Comment on above: Performed By: #### U MICRO, ERUR ####[facility] Rgxwhezbwf[address] [place], [place] [address]Dr. Rodger Munoz Epithelial cells LM Ql (Urine sed) FEW Abnormal NONE SEEN /RARE [facility] Comment on above: Performed By: #### U MICRO, ERUR ####[facility] Splelurihe[address] [place], [place] [address]Dr. Rodger Munoz HYALINE CAST RARE Normal [facility] Comment on above: Performed By: #### U MICRO, ERUR ####[facility] [address] [address]Dr. Rodger Munoz MUCOUS TRACE Abnormal NONE SEEN [facility] Comment on above: Performed By: #### U MICRO, ERUR ####[facility] [address] [address]Dr. Rodger Munoz RBC 0-2 Normal 0-2 [facility] Comment on above: Performed By: #### U MICRO, ERUR ####[facility] [address] [place], [place] [address]Wh. Rodger Munoz WBC 50-75 Abnormal NONE SEEN [facility] Comment on above: Performed By: #### U NICK, ERUR ####[facility] [address] [id number]. Rodger Munoz Vital Signs Date Time Vital Sign Value Performing Clinician Facility 03-20-2022 10:09-0400 Blood Pressure Location Krystyna Lue [facility] 03-20-2022 10:09-0400 Diastolic blood pressure 76 mm[Hg] Krystyna Lue [facility] 03-20-2022 10:09-0400 Heart rate 62 /min Krystyna Lue [facility] 03-20-2022 10:09-0400 Systolic blood pressure 123 mm[Hg] Krystyna Lue [facility] 02-16-2022 13:45-0400 Body height 160.02 cm Emily Andrade Other [facility] Other 02-16-2022 13:45-0400 Body mass index (BMI) [Ratio] 20.72 kg/m2 Emily Andrade Other [facility] Other 02-16-2022 13:45-0400 Body temperature 97.3 [degF] Emily Andrade Other [facility] Other 02-16-2022 13:45-0400 Body weight 53.07 kg Emily Andrade Other [facility] Other 02-16-2022 13:45-0400 Diastolic blood pressure 64 mm[Hg] Emily Andrade Other [facility] Other 02-16-2022 13:45-0400 Respiratory rate 18 /min Emily Andrade Other [facility] Other 02-16-2022 13:45-0400 SaO2% (BldA) [Mass fraction] 99 % Emily Andrade Other [facility] Other 02-16-2022 13:45-0400 Systolic blood pressure 129 mm[Hg] Emily Andrade Other [facility] Other Encounters Encounter Date Encounter Type Care Provider Facility Start: 10-08-2023 End: 10-09-2023 ambulatory Krystyna Moreno Facility:[facility] Start: 10-08-2023 End: 10-08-2023 Patient encounter procedure Krystyna Moreno [facility] Start: 03-12-2023 ambulatory Krystyna MDarryl Becerrile Facility:[facility] Start: 12-16-2022 End: 12-17-2022 ambulatory Krystyna MDarryl Moreno Facility:[facility] [place] [place] Start: 12-16-2022 End: 12-16-2022 Patient encounter procedure Krystyna M. Jerricae [facility] Start: 10-07-2022 Encounter for genera l adult medical examination without abnormal findings DR SADIA MTZ [facility] Start: 10-02-2022 End: 10-03-[address] SADIA MTZ Facility: Start: 10-02-2022 End: 10-03-2022 Encounter for general adult medical examination without abnormal findings DR SADIA MTZ Facility:[facility] Start: 09-24-2022 End: 09-25-2022 ambulatory KRYSTYNA MORENO . Facility:[facility] Start: 03-26-2022 End: 03-26-[address] SADIA MTZ Facility:[facility] Start: 03-20-2022 End: 03-20-2022 Patient encounter procedure Krystyna Moreno [facility] Start: 02-16-2022 End: 02-16-2022 ambulatory STEFANO WILMER [facility] Other Start: 02-16-2022 Patient encounter procedure Emily Andrade [facility] Start: 02-08-2022 End: 02-08-2022 ambulatory Sadia Mtz Other [facility] Other Start: 02-08-2022 Encounter by cr Mtz [facility] Procedures Date Procedure Procedure Detail Performing Clinician Abdominal hysterectomy Krystyna Jerricagina Tonsillectomy Krystyna Moreno Immunizations Immunization Date Immunization Notes Care Provider Ryan leach 09-09-2022 COVID-19, mRNA, LNP- S, bivalent booster, PF, 30 mcg/0.3 mL dose Krystyna Jerricagina [facility] Comment on above: Reason for Medicatio n: Prophylaxis 09-09-2022 influenza virus vaccine, unspecified formulation Krystyna Josh [facility] Comment on above: Reason for Medicatio n: Prophylaxis 09-14-2021 SARS-CoV-2 (COVID-19 ) mRNA BNT-162b2 vax Krystyna Josh [facility] 12-14-2020 SARS-CoV-2 (COVID-19 ) Ad26 vaccine, recombinant Krystyna Josh [facility] 11-23-2020 SARS-CoV-2 (COVID-19 ) Ad26 vaccine, recombinant Krystyna Moreno [facility] Payers Date Payer Category Payer Unknown [id number] 1985 Unknown [id number] 2.16.84 [id number] 1985 Unknown [id number] 2.16.84 [id number] 1985 Unknown [id number] 2.16.84 [id number] 1985 Unknown [id number] 2.16.84 [id number] 1985 Unknown [id number] 2.16.8 [id number] 1985 Unknown [id number] 2.16.8 [id number] 1985 Unknown [id number] 2.16.8 [id number] 1959 Unknown [id number] 2.16.8 [id number] 1959 Unknown [id number] Social History Date Type Detail Facility Start: 03-20-2022 Tobacco smoking status Never s moked tobacco (finding) [facility] Other Tobacco smoking status Never [facility] Sex Assigned At Female [facility] Other Clinical Notes 03-20-2022 to 12-19-2022 Note Date & Type Note Facility 12-19-2022 Note [id number]:[id number] [facility] 12-16-2022 Note Cystoscopy ? Voiding after the procedure: there may be some pain, burning, urgency, frequency and blood tinged urine following the procedure. These symptoms usually resolve within 2-5 days. Drink the amount of fluid it takes to keep the urine pink to yellow or clear in color. Drinking enough water and fluids will help to ease any discomfort after your procedure. ? If you are having problems that seem out of the ordinary, please call. ? If unable to contact your physician and you feel it is an emergency, go to the nearest emergency room or call 911 ? Diet ? you may resume your normal diet. ? Activity ? you may resume your normal activities ? Call if you have a fever over 100 degrees. [facility] 12-16-2022 [facility] Discharg e instructions Patient Education 12/16/2022 09:29:34 [facility] - Cystoscopy Discharge Instructions (CUSTOM) Cystoscopy Voiding after the procedure: there may be some pain, burning, urgency, frequency and blood tinged urine following the procedure. These symptoms usually resolve within 2-5 days. Drink the amount of fluid it takes to keep the urine pink to yellow or clear in color. Drinking enough water and fluids will help to ease any discomfort after your procedure. If you are having problems that seem out of the ordinary, please call. If unable to contact your physician and you feel it is an emergency, go to the nearest emergency room or call 911 Diet you may resume your normal diet. Activity you may resume your normal activities Call if you have a fever over 100 degrees. Follow Up Care 12/03/2022 15:34:59 With:Krystyna Moreno Address: [address] [place] [address] [phone] Business (1) [facility] Venu Keller, [address] [address] [phone] Business (1) When: Unknown Comments:Office to schedule follow up in 3-6 months [facility] 03-20-2022 [facility] Discharg e instructions Patient Education 03/20/2022 10:54:59 Kidney Stones, Dkpd-eq-Dnwk Kidney Stones Kidney stones are rock-like masses that form inside of the kidneys. Kidneys are organs that make pee (urine). A kidney stone may move into other parts of the urinary tract, including: The tubes that connect the kidneys to the bladder (ureters). The bladder. The tube that carries urine out of the body (urethra). Kidney stones can cause very bad pain and can block the flow of pee. The stone usually leaves your body (passes) through your pee. You may need to have a doctor take out the stone. What are the causes? Kidney stones may be caused by: A condition in which certain glands make too much parathyroid hormone (primary hyperparathyroidism). A buildup of a type of crystals in the bladder made of a chemical called uric acid. The body makes uric acid when you eat certain foods. Narrowing (stricture) of one or both of the ureters. A kidney blockage that you were born with. Past surgery on the kidney or the ureters, such as gastric bypass surgery. What increases the risk? You are more likely to develop this condition if: You have had a kidney stone in the past. You have a family history of kidney stones. You do not drink enough water. You eat a diet that is high in protein, salt (sodium), or sugar. You are overweight or very overweight (obese). What are the signs or symptoms? Symptoms of a kidney stone may include: Pain in the side of the belly, right below the ribs (flank pain). Pain usually spreads (radiates) to the groin. Needing to pee often or right away (urgently). Pain when going pee (urinating). Blood in your pee (hematuria). Feeling like you may vomit (nauseous). Vomiting. Fever and chills. How is this treated? Treatment depends on the size, location, and makeup of the kidney stones. The stones will often pass out of the body through peeing. You may need to: Drink more fluid to help pass the stone. In some cases, you may be given fluids through an IV tube put into one of your veins at the hospital. Take medicine for pain. Make changes in your diet to help keep kidney stones from coming back. Sometimes, medical procedures are needed to remove a kidney stone. This may involve: A procedure to break up kidney stones using a beam of light (laser) or shock waves. Surgery to remove the kidney stones. Follow these instructions at home: Medicines Take dufp-vui-mtzgbvs and prescription medicines only as told by your doctor. Ask your doctor if the medicine prescribed to you requires you to avoid driving or using heavy machinery. Eating and drinking Drink enough fluid to keep your pee pale yellow. You may be told to drink at least 8 10 glasses of water each day. This will help you pass the stone. If told by your doctor, change your diet. This may include: ?Limiting how much salt you eat. ?Eating more fruits and vegetables. ?Limiting how much meat, poultry, fish, and eggs you eat. Follow instructions from your doctor about eating or drinking restrictions. General instructions Collect pee samples as told by your doctor. You may need to collect a pee sample: ?24 hours after a stone comes out. ?8 12 weeks after a stone comes out, and every 6 12 months after that. Strain your pee every time you pee (urinate), for as long as told. Use the strainer that your doctor recommends. Do not throw out the stone. Keep it so that it can be tested by your doctor. Keep all follow-up visits as told by your doctor. This is important. You may need follow-up tests. How is this prevented? To prevent another kidney stone: Drink enough fluid to keep your pee pale yellow. This is the best way to prevent kidney stones. Eat healthy foods. Avoid certain foods as told by your doctor. You may be told to eat less protein. Stay at a healthy weight. Where to find more information National Kidney Foundation (NKF): www.kidney.org U[employer] Foundation (UCF): www.urologyhealth.org Contact a doctor if: You have pain that gets worse or does not get better with medicine. Get help right away if: You have a fever or chills. You get very bad pain. You get new pain in your belly (abdomen). You pass out (faint). You cannot pee. Summary Kidney stones are rock-like masses that form inside of the kidneys. Kidney stones can cause very bad pain and can block the flow of pee. The stones will often pass out of the body through peeing. Drink enough fluid to keep your pee pale yellow. This information is not intended to replace advice given to you by your health care provider. Make sure you discuss any questions you have with your health care provider. Document Released: 04/28/2009 Document Revised: 03/28/2020 Document Reviewed: 03/28/2020 Elsevier Patient Education 2020 [employer] Inc[employer] Follow Up Care 02/21/2022 14:34:05 With:Josh INFANTE, Krystyna Barillas, URL, [facility] Address: When:05/01/2022 Comments:will schedule MRI and KUB [facility] Evaluation + Plan note Future Appointments Appointment Date:10/02/2022 09:15:00 AM Scheduled Provider:Krystyna Moreno MD Location:[facility] Appointment Type:URO Office Visit [facility] Evaluation + Plan note Future Appointments Appointment Date:03/12/2023 10:45:00 AM Scheduled Provider:Krystyna Moreno MD Location:[facility] Appointment Type:URO Office Visit Appointment Date:10/08/2023 10:00:00 AM Scheduled Provider:Krystyna Moreno MD Location:[facility] Appointment Type:URO Office Visit [facility] Evaluation note No Information [facility] [employer] Other History general Narrative - Reported Type Medical History high cholesterol Medical History Gestational diabetes - yes Medical History chronic depression Medical History anxiety Medical History migraine headaches Surgical History hysterectomy Surgical History tonsillectomy Surgical History 3 c-sections [facility] Other Hospital course Narrative No data available for this section [facility] Discharge instructions No data available for this section [facility] [employer] progress note No data available for this section [facility] Summary Purpose Family History No Family History Records Found No data available for this section No Family History Records Found Advance Directives No Advanced Directives Records FoundNo Advanced Directives Records Found Additional Source Comments REASON FOR VISIT (unrecogniz ed section and content) Update [employer] Demographics[employer] sible UTI INFORMATION SOURCE (unrecogn ized section and content) DATE CREATED AUTHOR 10/07/2022 [facility] DATE CREATED AUTHOR AUTHOR'S ORGANIZ ATION 10/11/2023 [facility] Patient Care team informatio n (unrecognized section and content) Personnel Name: Sadia Mtz MD Address: Address: [address] [place] [address] Personnel Name: Sadia Mtz MD Address: Address: [address] [place] [address] FOR RECORDS PERTAINING TO PATIENTS WHO ARE OR HAVE BEEN ENROLLED IN A CHEMICAL DEPENDENCY/SUBSTANCEABUSE PROGRAM, SOME INFORMATION MAY BE OMITTED. This clinical summary was aggregated from multiple sources. Caution should be exercised in using it in the provision of clinical care. This summary normalizes information from multiple sources, and as a consequence, information in this document may materially change the coding, format and clinical context of patient data. In addition, data may be omitted in some cases. CLINICAL DECISIONS SHOULD BE BASED ON THE PRIMARY CLINICAL RECORDS. [facility]. provides no warranty or guarantee of the accuracy or completeness of information in this document.
== END 2023-11-27 15:17 | disposition home or self-care (01) ==
LOC: MRI 15:16
PROVIDERS: PCP Family Medicine; Visit Provider Family Medicine
DX: G43.909 Migraine, unspecified, not intractable, without status migrainosus (principal)
CPT/HCPCS: 70551

== ENCOUNTER 2024-09-29 09:46 | Outpatient (OUT) | payer OTHER, SELFPAY ==
[2024-09-29 10:14] LABS: Estimated Average Glucose 108 mg/dL; Glycohemoglobin A1C 5.4 % (4.5-6.2)
[2024-09-29 10:33] LABS: Basophils Absolute Auto 0.1 10^3/uL (0.0-0.1); Basophils Percent Auto 1.2 % (0.2-2.0); Eosinophils Absolute Auto 0.2 10^3/uL (0.0-0.7); Eosinophils Percent Auto 3.9 % (0.9-7.0); Hemoglobin 14.6 g/dL (12.0-16.0); Immature Granulocytes Abs Auto 0.01 10^3/uL (0.00-0.03); Immature Granulocytes Pct Auto 0.2 % (0.0-0.5); Lymphocytes Absolute Auto 1.5 10^3/uL (1.2-3.8); Lymphocytes Percent Auto 31.9 % (20.5-60.0); Mean Corpuscular Hemoglobin 29.1 pg (26.7-34.0); Mean Corpuscular Volume 85.8 fL (81.0-99.0); Mean Platelet Volume 10.7 fL (9.5-13.5); Monocytes Absolute Auto 0.5 10^3/uL (0.3-0.8); Monocytes Percent Auto 10.6 % (1.7-12.0); Neutrophils Absolute Auto 2.5 10^3/uL (1.4-6.5); Neutrophils Percent Auto 52.2 % (43.0-75.0); Platelet Count 210 10^3/uL (150-450); Red Blood Count 5.01 10^6/uL (4.20-5.40); Red Cell Distribution Width 12.3 % (11.0-15.0); White Blood Count 4.8 10^3/uL (4.0-11.0)
[2024-09-29 10:57] LABS: Alanine Aminotransferase 19 U/L (14-59); Albumin Level 3.8 g/dL (3.4-5.0); Alkaline Phosphatase 105 U/L (46-116); Anion Gap 11.6; Aspartate Amino Transferase 18 U/L (15-37); Bilirubin Total 0.5 mg/dL (0.2-1.0); Calcium 8.7 mg/dL (8.5-10.1); Carbon Dioxide 29.4 mmol/L (21.0-32.0); Chloride 105 mmol/L (98-107); Chol HDL Ratio 2.4; Cholesterol 178 mg/dL (<=200); Estimated GFR (African America >60 (>=60 mL/min/1.73m^2); Estimated GFR (Non-African Ame >60 (>=60 mL/min/1.73m^2); Free T3 2.48 pg/mL (2.18-3.98); Globulin 3.7 g/dL; Glucose 89 mg/dL (74-106); HDL Cholesterol 74 mg/dL (40-60); Sodium 142 mmol/L (136-145); Thyroid Stimulating Hormone 2.058 uIU/mL (0.358-3.740); Total Protein 7.5 g/dL (6.4-8.2); Triglycerides 101 mg/dL (<=150); VLDL CHOLESTEROL 20.2 mg/dL
[2024-09-30 07:11] LABS: Hep B Surface Ab Reactive (.); Measles Antibodies, IgG 33.1 AU/mL (Immune >16.4); Mumps Abs, IgG 74.7 AU/mL (Immune >10.9); Rubella Antibodies, IgG 6.29 index (Immune >0.99)
[2024-09-30 08:15] LABS: Varicella-Zoster V Ab, IgG Reactive (Non Reactive)
[2024-09-30 10:13] LABS: Insulin 6.8 uIU/mL (2.6-24.9)
== END 2024-09-29 09:47 | disposition home or self-care (01) ==
LOC: LAB 09:49
PROVIDERS: PCP Family Medicine; Visit Provider Nurse Practitioner Family
DX: Z00.00 Encounter for general adult medical examination without abnormal findings (principal)
CPT/HCPCS: 36415; 80053; 80061; 83036; 83525; 84436; 84443; 84481; 85025; 86706; 86735; 86762; 86765; 86787

== ENCOUNTER 2024-12-02 16:04 | Outpatient (OUT) | payer OTHER, SELFPAY ==
[2024-12-02 16:31] LABS: Amphetamine Screen Urine NEGATIVE (NEGATIVE); Barbiturates Screen Urine POSITIVE (NEGATIVE); Benzodiazepines Screen Urine NEGATIVE (NEGATIVE); Buprenorphine Screen Urine NEGATIVE (NEGATIVE); Cannabinoid Screen Urine NEGATIVE (NEGATIVE); Cocaine Screen Urine NEGATIVE (NEGATIVE); Methadone Screen Urine NEGATIVE (NEGATIVE); Methamphetamines Screen Urine NEGATIVE (NEGATIVE); Opiate Screen Urine NEGATIVE (NEGATIVE); Oxycodone Screen Urine NEGATIVE (NEGATIVE); Phencyclidine Screen Urine NEGATIVE (NEGATIVE); Tricyclic Antidepressant Urine NEGATIVE (NEGATIVE)
== END 2024-12-02 16:05 | disposition home or self-care (01) ==
LOC: LAB 16:05
PROVIDERS: PCP Family Medicine; Visit Provider Family Medicine
DX: Z02.0 Encounter for examination for admission to educational institution (principal)
CPT/HCPCS: 80307

== ENCOUNTER 2025-06-25 09:47 | Outpatient (OUT) | payer OTHER, SELFPAY ==
--- OUTSIDE RECORDS SUMMARY | 2024-11-10 11:00 | XMS_ITS | Continuity of Care Document ---
Author Organization [facility] Address [address] [place] [address] Phone Care Team Providers Care Material Handling Warehouse Supervisor Name Role Phone Tatiana Langford MD Unavailable [...] This specimen has been analyzed by the ShopSpotPrep Imaging System, an [employer] er system which assists the lab in the screening of ThinPrep Pap Testslides. Following imaging, the slide was reviewed by a Cytotechnologista nd/or Pathologist. End of Report Technical services provided by [facility], [facility], d/b/a [address] , [place], [place] [address]AbdwzvFidelina Hernandez MD, Copier Repair Technician. Case reviewed and diagnosis rendered at [facility], [facility], d/b/a [address] , [place], [place] [address]JyojybFidelina Hernandez MD, Copier Repair Technician. CONFIDENTIAL Advance Directives Directive Yes / No Effective Date File Name No Information Encounters Encounter Description Practice Location Reason(s) For Visit Diagnoses Date Provider Providers Copied on Encounter Preven Meds E&m Estab Pt; [facility], [address], [place], [place], [id number], [place] tel:[phone] WOLFGANG Carrasco Reporting Analyst annual exam (chief complaint) Encounter for gynecological examination (general) (routine) without abnormal findings 4 Primitivo Simpson. [address] [place] [address], [address] [place] [address] , . [phone] [facility], [address], [place], [place], [id number], [place] [phone] WOLFGANG Carrasco Antepartum Unit No Information 3 Primitivo Simpson. [address] [place] [address], [id number] , [place]. tel:[phone] Init Preven Meds E&m New Pt; [address] [facility], [address], [place], [place], [id number], [place] tel:[phone] WOLFGANG Carrasco Reporting Analyst annual exam (chief complaint) Encounter for gynecological examination (general) (routine) without abnormal findings 3 Primitivo Simpson. [facility], [place], [place], [id number] , [place]. tel:[phone] Family History Family Member Type Diagnosis Age At Onset Father Problem Hypercholesterolemia Father Problem Diabetes mellitus Mother Problem Hypercholesterolemia Mother Problem Osteoporosis Father Problem Hypertension Payers Payer name Insurance type Covered constitution party ID Mervat jaquez(berna) Sandeep YUSUFO [id number] Social History Type Description Quantity Date Captured [...]
--- OUTSIDE RECORDS SUMMARY | 2025-06-17 06:16 | XMS_ITS ---
Author Organization The [facility] [place] Address [address] [place] [address] Care Team Providers Care Warehouse Shipping Clerk Name Role Phone Gennaro Mtz Primary Care Provider REASON FOR VISIT kidney stones Medications Medication SIG (Take, Route, Frequency, Duration) Notes Start Date End Date Status Tamsulosin HCl 0.4 MG 1 capsule Orally O nce a day for 30 day(s) 06/17/2025 Active Hyoscyamine Sulfate 0.125 MG 1-2 tabs SL SL every 4 hrs PRN abd pain 06/17/2025 Active Encounters Encounter Location Date Provider Diagnosis [facility] [address] [place] [address] 06/17/2025 Gennaro Mtz Plan Of Treatment Medication Medication Name Sig Start Date Stop Date Notes Tamsulosin HCl 0.4 MG 1 capsule Orally O nce a day for 30 day(s) 06/17/2025 Hyoscyamine Sulfate 0.125 MG 1-2 tabs SL SL every 4 hrs PRN abd pain 06/17/2025 Progress Notes * Emily BEGUM ADOB: [birth year] (39 yo F)Acc No.[id number]:06/17/2025 Patient: Sandra JADENKorin Emily Reyna :1985 A ge:39 Y S ex:Female Address:[address] [place] [address], [phone] * Refills Start Tamsulosin HCl Capsule, 0.4 MG, Orally, 30, 1 capsule, Once a day, 30 day(s) Start Hyoscyamine Sulfate Tablet Sublingual, 0.125 MG, SL, 30, 1-2 tabs SL, every 4 hrs PRN abd pain, Refills=11 * true * Date: Generated for Mg [place]/Rosa M/Lelo on: 0 06/25/2025 09:50 AM EDT
--- OUTSIDE RECORDS SUMMARY | 2025-06-20 04:45 | XMS_ITS ---
Author Organization The [facility] [place] Address [address] [place] [address] Care Team Providers Care Mechanical Systems Engineer Name Role Phone Bibi Gennaro Primary Care Provider [phone] REASON FOR VISIT kidney stones/infection Medications Medication SIG (Take, Route, Frequency, Duration) Notes Start Date End Date Status Ciprofloxacin HCl 500 MG 1 tablet Orally every 12 hrs for 10 days 06/20/2025 Active Encounters Encounter Location Date Provider Diagnosis [facility] [address] [place] [address] 06/20/2025 Gennaro Mtz Plan Of Treatment Medication Medication Name Sig Start Date Stop Date Notes Ciprofloxacin HCl 500 MG 1 tablet Orally every 12 hrs for 10 days 06/20/2025 Progress Notes * Emily BEGUM ADOB: [birth year] (39 yo F)Acc No.[id number]:06/20/2025 Patient: Nitin LANDIShanie Maribell :1985 A ge:39 Y S ex:Female Address:[address] [place] [address], [phone] * Refills Start Ciprofloxacin HCl Tablet, 500 MG, Orally, 20 Tablet, 1 tablet, every 12 hrs, 10 days * true * Date: Generated for Printi ng/Faxing/eTransmitting on: 0 06/25/2025 09:50 AM EDT
--- OUTSIDE RECORDS SUMMARY | 2025-06-23 12:16 | XMS_ITS ---
Author Organization The [facility] [place] Address [address] [place] [address] Care Team Providers Care Academic Specialist Name Role Phone Gennaro Mtz Primary Care Provider REASON FOR VISIT kidney stone Encounters Encounter Location Date Provider Diagnosis [facility] [address] [facility] [place] [address] 06/23/2025 Gennaro Mtz Flank pain R10.9 Assessments Encounter Date Diagnosis (ICD Code) Assessment Notes Treatment Notes Treatment Clinical Notes Section Notes 06/23/2025 Flank pain (ICD-10 - R10.9) Plan Of Treatment Pending Test Test Name Order Date US KIDNEYS BLADDER 06/23/2025 Progress Notes * Emily BEGUM ADOB: [birth year] (39 yo F)Acc No.[id number]:06/23/2025 Patient: Emily LANDIS :1985 A ge:39 Y S ex:Female Address:[address] [place] [address], [place] [address] Subjective: * Chief Complaints: * K idney stone * Medical History: * Surgical History: * Hospitalization/Major Diagno stic Procedure: * Medications: Objective: * Vitals: * Physical Examination: Assessment: * Assessment: 1. F lank pain - R10.9 (Primary) Plan: * Treatment: * Procedure Codes: * true * Date: Generated for Printi ng/Faxing/eTransmitting on: 0 06/25/2025 09:50 AM EDT
--- NOTE | 2025-06-25 | US_ITS ---
The [address] [address] Patient Name: GRETA BEGUM MRN: [id number] date: 1985 Sex: F Assigned Patient Location: [place] Current Patient Location: [place] Accession/Order Number: [id number] Exam Date: 06/25/2025 20:02 Report Date: 06/25/2025 20:03 At the request of: SADIA PARISI MD Procedure: US renal bladder US renal bladder 06/25/2025 10:12 AM SIGNS AND SYMPTOMS: ^FLANK PAIN R10.9 COMPARISON: None. FINDINGS: Right kidney measures 9.5 x 4.9 x 3.9 cm . The right renal cortex measures 9 mm in thickness. No hydronephrosis or mass. Left kidney measures 10.2 x 4.6 x 3.9 cm . The right renal cortex measures 1.1 cm in thickness. No hydronephrosis or mass. There is a 5 mm echogenic focus at the inferior pole on the left suspicious for a stone. The urinary bladder is morphologically normal. No free fluid is seen in the pelvis. The bladder has an estimated volume of 138 mL. US/US renal bladder IMPRESSION: No hydronephrosis or mass. There is a 5 mm suspected stone at the inferior pole collecting system of the left kidney. Impression dictated by: Ashkan Escobar M.D. 06/25/2025 8:03 PM Dictation Location: [place] [address] Electronically authenticated by: [id number] Y Date: 06/25/2025 20:03
--- OUTSIDE RECORDS SUMMARY | 2025-06-25 09:50 | XMS_ITS | Clinical Summary ---
Author Organization [facility] Address [address] [place] [address] Care Team Providers Care Service Loss Control Consultant Name Role Phone Silverio Mtz MD Primary Care Provider [phone] Allergies Active Allergy Reactions Criticality Noted Date Comments Amoxicillin Shortness of breath High 06/02/2024 Meperidine 06/02/2024 Penicillins 06/02/2024 Medications Ajovy 225 MG/1.5ML auto-injector DIRECTED SUBCUTANEOUS ONCE MONTHLY 30 DAYS 4 Active pantoprazole (ProtoNix) 40 MG EC tablet Take 40 mg by mouth Daily 4 Active QUEtiapine (SEROquel) 50 MG tablet Take 75 mg by mouth at bedtime 4 Active rosuvastatin (Crestor) 5 MG tablet Take 5 mg by mouth Daily 4 Active sertraline (Zoloft) 100 MG tablet TAKE TWO TABLETS BY MOUTH DAILY 30 4 Active naratriptan (Amerge) 1 MG tabletIndicatio ns:Chronic migraine without aura without status migrainosus, not intractable Take 1 tablet by mouth as needed at the onset of migraine. May repeat dose (1 tablet) once after 4 hours if migraine persists. Take no more than 2 doses in 24 hours. Take no more than 2 times per week. 9 tablet 5 4 Active Active Problems Problem Noted Date Diagnosed Date Migraine 06/02/2024 Chronic migraine without aur a without status migrainosus, not intractable 06/02/2024 Generalized anxiety disorder 06/02/2024 Major depressive disorder, recurrent, mild 06/02 Family History Medical History Relation Name Comments Hypertension Father Hyperlipidemia Mother Migraines Mother Stroke Mother Depression Sister Seizures Sister Relation Name Status Comments Father Mother Sister Social History Tobacco Use Types Packs/Day Years Used Date Smoking Tobacco: Never Smokeless Tobacco: Never Tobacco Cessation:Counseling Given: Not Answered Alcohol Use Standard Drinks/Week Comments Yes 6 (1 standard drink = 0.6 oz pur e alcohol) caffeine 1-2 cups per day Comments Unknown Sex and Gender Information Value Date Recorded Sex Assigned at Not on file Legal Sex Female 11:47 PM EDT Gender Identity Not on file Sexual Orientation Not on file Last Filed Vital Signs Vital Sign Reading Time Taken Comments Blood Pressure 106/78 06/07/2024 2:39 PM EDT Pulse 73 06/07/2024 2:39 PM EDT Temperature - - Respiratory Rate 16 06/07/2024 2:39 PM EDT Oxygen Saturation - - Inhaled Oxygen Concentration - - Weight 56.9 kg (125 lb 6.4 oz) 06/07/2024 2:39 P M EDT Height 160 cm (5' 3 ) 06/07/2024 2:39 PM EDT Body Mass Index 22.21 06/07/2024 2:39 PM EDT Plan of Treatment Health Maintenance Due Date Last Done Comments Pap Smear 2006 Cervical Cancer Screening 2015 HPV/Cotest 2015 Influenza Vaccine (#1) 2025 09/09/2022 Insurance [employer] Care Teams Service Loss Control Consultant Relationship Specialty Start Date End Date Silverio Mtz MD PCP - General Family Medicine 02/19/24
--- OUTSIDE RECORDS SUMMARY | 2025-06-25 09:50 | XMS_ITS | Patient Health Record ---
Author Organization [facility] in [place] Address [address] [place] [address] Care Team Providers Care Performance Analyst Name Role Phone Dejuannorman Gennaro Primary Care Provider Lilly Amato [phone] Allergies Allergen (clinical drug ingredient) Drug/Non Drug Allergy documented on EMR Reaction Allergy Type Onset Date Status amoxicillin Amoxicillin shortness of breath Drug Allergy Active meperidine Demerol Unknown Drug Allergy Active Results Component Value Reference Range Notes DRUG SCREEN RAPID (URINE) Reviewed date:12/02/2024 05:34:44 PM Interpretation: Performing Lab: Notes/Report: [facility] , Cannabinoid Screen Urine NEGATIVE NEGATIVE Phencyclidine Screen Urine NEGATIVE NEGATIVE Cocaine Screen Urine NEGATIVE NEGATIVE Methamphetamines Screen Urine NEGATIVE NEGATIVE Opiate Screen Urine NEGATIVE NEGATIVE Amphetamine Screen Urine NEGATIVE NEGATIVE Benzodiazepines Screen Urine NEGATIVE NEGATIVE Tricyclic Antidepressant Urine NEGATIVE NEGATIVE Methadone Screen Urine NEGATIVE NEGATIVE Barbiturates Screen Urine POSITIVE NEGATIVE Oxycodone Screen Urine NEGATIVE NEGATIVE Buprenorphine Screen Urine NEGATIVE NEGATIVE DRUG CLASS TEST SYSTEM CUT-OFF CONCENTRATIONS ARE FOLLOWS: AMP (Amphetamine): 500 ng/mL BAR (Barbiturates): 200 ng/mL BZO (Benzodiazepines): 150 ng/mL BUP (Buprenorphine): 10 ng/mL XU (Cocaine): 150 ng/mL mAMP (Methamphetamine): 500 ng/mL MTD (Methadone): 200 ng/mL OPI (Opiates): 100 ng/mL OXY (Oxycodone): 100 ng/mL PCP (Phencyclidine): 25 ng/mL THC (Cannabinoids): 50 ng/mL TCA (Trycyclic Antidepressants): 300 ng/mL Performing Lab: see note [facility] INSULIN Reviewed date:09/30/2024 01:26:12 PM Interpretation: Performing Lab: Notes/Report: [facility] , Insulin 6.8 2.6-24.9 uIU/mL Performed at: [address] [id number] [employer] External: Good Caldwell PhD, Phone: [phone] Performing Lab: see note [facility] Measles/Mumps/Rubella Immuni ty Reviewed date:09/30/2024 01:26:12 PM Interpretation: Performing Lab: Notes/Report: [facility] , Rubella Antibodies, IgG 6.29 Immune >0.99 inde x Non-immune <0.90 Equivocal 0.90 - 0.99 Immune >0.99 Measles Antibodies, IgG 33.1 Immune >16.4 AU/m L Negative <13.5 Equivocal 13.5 - 16.4 Positive >16.4 Presence of antibodies to Rubeola is presumptive evidence of immunity except when acute infection is suspected. Mumps Abs, IgG 74.7 Immune >10.9 AU/mL Negative <9.0 Equivocal 9.0 - 10.9 Positive >10.9 A positive result generally indicates past exposure to Mumps virus or previous vaccination. Performed at: [address] [id number] [employer]: Good Caldwell PhD, Phone: [phone] Performing Lab: see note [facility] GLYCOHEMOGLOBIN A1C Reviewed date:09/30/2024 01:26:12 PM Interpretation: Performing Lab: Notes/Report: [facility] , Glycohemoglobin A1C 5.4 4.5-6.2 % ADA RECOMMENDED LIMIT 4.0 - 6.0 ADA THERAPEUTIC TARGET < 7.0 ACTION SUGGESTED > 7.0 Estimated Average Glucose 108 Performing Lab: see note [facility] Varicella-Zoster V Ab, IgG Reviewed date:09/30/2024 01:26:12 PM Interpretation: Performing Lab: Notes/Report: [facility] , Varicella-Zoster V Ab, IgG Reactive Non Reactive Please note reference interval change A Reactive result is considered evidence of immunity to VZV. Reactive indicates that VZV IgG was detected consistent with previous infection and/or vaccination. A Non Reactive result indicates that VZV IgG was not detected suggesting that immunity has not been acquired. Performed at: [address] [id number] [employer]: Good Caldwell PhD, Phone: [phone] Performing Lab: see note [facility] Hep B Surface Ab Reviewed date:09/30/2024 01:26:12 PM Interpretation: Performing Lab: Notes/Report: [facility] , Hep B Surface Ab Reactive . Non Reactive: Not immune to HBV infection. Equivocal: Unable to determine if anti-HBs is present at levels consistent with immunity. Reactive: Anti-HBs concentration detected at greater than 10 mIU/mL. Individual is considered to be immune to infection with HBV. Performed at: [address] [id number] [employer]: Good Caldwell PhD, Phone: [phone] Performing Lab: see note [facility] TSH Reviewed date:09/30/2024 01:26:12 PM Interpretation: Performing Lab: Notes/Report: [facility] , Thyroid Stimulating Hormone 2.058 0.358-3.740 u IU/mL Performing Lab: see note [facility] LB T4 Reviewed date:09/30/2024 01:26:12 PM Interpretation: Performing Lab: Notes/Report: [facility] , T4 Thyroxine 7.10 4.80-13.90 ug/dL Performing Lab: see note [facility] LB PROF 14(COMP METB) Reviewed date:09/30/2024 01:26:12 PM Interpretation: Performing Lab: Notes/Report: [facility] , Sodium 142 136-145 mmol/L Potassium 4.0 3.5-5.1 mmol/L Chloride 105 98-107 mmol/L Carbon Dioxide 29.4 21.0-32.0 mmol/L Anion Gap 11.6 Glucose 89 74-106 mg/dL Blood Urea Nitrogen 7.0 7.0-18.0 mg/dL Creatinine 0.87 0.55-1.02 mg/dL Estimated GFR ( Sandi >60 >=60 mL/min/1.73m 2 Estimated GFR (Non- Laura >60 >=60 mL/min/1.73m 2 BUN Creatinine Ratio 8.0 Calcium 8.7 8.5-10.1 mg/dL Bilirubin Total 0.5 0.2-1.0 mg/dL Aspartate Amino Transferase 18 15-37 U/L Alanine Aminotransferase 19 14-59 U/L Alkaline Phosphatase 105 46-116 U/L Total Protein 7.5 6.4-8.2 g/dL Albumin Level 3.8 3.4-5.0 g/dL Globulin 3.7 Albumin Globulin Ratio 1.0 Performing Lab: see note [facility] LB LIPID PROFILE Reviewed date:09/30/2024 01:26:12 PM Interpretation: Performing Lab: Notes/Report: [facility] , Triglycerides 101 <=150 mg/dL Cholesterol 178 <=200 mg/dL HDL Cholesterol 74 40-60 mg/dL > or =60 mg/dl - LOW CARDIOVASCULAR RISK <40 mg/dl - HIGH CARDIOVASCULAR RISK LDL Cholesterol Calculated 84.0 <100 mg/dl OPTIMAL 100-129 mg/dl NEAR OR ABOVE OPTIMAL 130-159 mg/dl BORDERLINE HIGH 160-189 mg/dl HIGH >190 mg/dl VERY HIGH VLDL CHOLESTEROL 20.2 Chol HDL Ratio 2.4 3.3 - 4.4 LOW RISK 4.4 - 7.1 AVERAGE RISK 7.1 - 11.0 MODERATE RISK >11.0 HIGH RISK Performing Lab: see note [facility] LB FREE T3 Reviewed date:09/30/2024 01:26:12 PM Interpretation: Performing Lab: Notes/Report: [facility] , Free T3 2.48 2.18-3.98 pg/mL Performing Lab: see note [facility] LB CBC AUTO DIFF Reviewed date:09/30/2024 01:26:12 PM Interpretation: Performing Lab: Notes/Report: [facility] , White Blood Count 4.8 4.0-11.0 10 3/uL Red Blood Count 5.01 4.20-5.40 10 6/uL Hemoglobin 14.6 12.0-16.0 g/dL Hematocrit 43.0 36.0-48.0 % Mean Corpuscular Volume 85.8 81.0-99.0 fL Mean Corpuscular Hemoglobin 29.1 26.7-34.0 pg Mean Corpuscular HGB Conc 34.0 29.9-35.2 g/dL Red Cell Distribution Width 12.3 11.0-15.0 % Platelet Count 210 150-450 10 3/uL Mean Platelet Volume 10.7 9.5-13.5 fL Neutrophils Percent Auto 52.2 43.0-75.0 % Lymphocytes Percent Auto 31.9 20.5-60.0 % Monocytes Percent Auto 10.6 1.7-12.0 % Eosinophils Percent Auto 3.9 0.9-7.0 % Basophils Percent Auto 1.2 0.2-2.0 % Immature Granulocytes Pct Auto 0.2 0.0-0.5 % Neutrophils Absolute Auto 2.5 1.4-6.5 10 3/uL Lymphocytes Absolute Auto 1.5 1.2-3.8 10 3/uL Monocytes Absolute Auto 0.5 0.3-0.8 10 3/uL Eosinophils Absolute Auto 0.2 0.0-0.7 10 3/uL Basophils Absolute Auto 0.1 0.0-0.1 10 3/uL Immature Granulocytes Abs Auto 0.01 0.00-0.03 10 3/uL Performing Lab: see note [facility] - [facility] LB Reason For Referral No Information Medications Medication SIG (Take, Route, Frequency, Duration) Notes Start Date End Date Status Tamsulosin HCl 0.4 MG 1 capsule Orally O nce a day for 30 day(s) 06/17/2025 Active Pantoprazole Sodium 40 mg TAKE ONE TABLE T BY MOUTH DAILY for 30 Active Sertraline HCl 100 mg Take 2 tablets ora lly once daily for 30 days Active Picratxdlv-NLKV-Ymiljeim 50-300-40 MG 1 capsule as needed Orally every 4 hrs for 7 days 06/09/2025 Active Ciprofloxacin HCl 500 MG 1 tablet Orally every 12 hrs for 10 days 06/20/2025 Active Emgality (300 MG Dose) 100 MG/ML 3 mL Subcutaneous monthy for 30 days 11/26/2023 Not-Taking Metoprolol Tartrate 25 MG 1/2 tablet wit h food Orally Twice a day for 30 days 12/12/2023 Not-Taking Cipro 500 MG 1 tablet Orally ever y 12 hrs for 10 01/02/2024 Not-Taking Hyoscyamine Sulfate 0.125 MG 1-2 tabs SL SL every 4 hrs PRN abd pain 06/17/2025 Active QUEtiapine Fumarate 50 mg TAKE 1 AND 1/2 TABLETS BY MOUTH ONCE DAILY FOR 30 DAYS for 30 Active Aimovig 140 MG/ML as directed Subcutaneous 08/20/2023 Not-Taking Rosuvastatin Calcium 5 mg Take 1 tablet orally once daily for 30 days Active Immunizations Vaccine Route Administration Date Status Comme nts Flu, Flucelvax (24671) 6 mos and older, single-dose syringe IM Intramuscular 09/23/2024 Administered Tdap (Adacel) IM Intramuscular 09/23/2024 Administered Social History Tobacco Use: Social History Observation Description Date Details (start date - stop date) Never Smoker NA - NA Tobacco Use/Smoking Question Answer Notes Patient is a nonsmoker Alcohol Screen (Audit-C) Question Answer Notes Did you have a drink contain ing alcohol in the past year? Yes How often did you have 6 or more drinks on one occasion in the past year? Never (0 point) How many drinks did you have on a typical day when you were drinking in the past year? 1 or 2 drinks (0 point) How often did you have a dri nk containing alcohol in the past year? Less than monthly (1 point) Points 1 Interpretation Negative Problems Problem Type SNOMED Code ICD Code Onset Dates Problem Status W/U Status Risk Notes Problem Anxiety (63074504) Anxiety (F41.9) Active confirmed Problem Depression (547305985) Depression (F32.9) Active confirmed Problem Migraine (19416078) Migraine (G43.909) Active confirmed Problem Kidney stone (N20.0) Active confirmed Problem Well adult (428922715) Well adult (Z00.00) Active confirmed Problem [id number] Hypercholesterol emia (E78.00) Active confirmed Vital Signs Blood pressure diastolic 76 mm Hg 09/23/2024 Height 63 in 09/23/2024 Blood pressure systolic 110 mm Hg 09/23/2024 Weight 129.4 lbs 09/23/2024 BMI 22.92 kg/m2 09/23/2024 Encounters Encounter Location Date Provider Diagnosis [facility] [address] [place] [address] 09/23/2024 Lilly Amato Wellness examination Z00.00 and Encounter for immunization Z23 [facility] [address] [place] [address] 09/30/2024 iLlly Amato [facility] [address] [place] [address] 10/18/2024 Gennaro Mtz [facility] [address] [place] [address] 11/26/2024 Gennaro Mtz [facility] [address] [place] [address] 12/02/2024 Gennaro Mtz Encounter for examination for admission to [facility] Z02.0 [facility] [address] [place] [address] 06/17/2025 Gennaro Mtz [facility] [address] [facility] [place] [address] 06/20/2025 Gennaro Mtz [facility] [address] [place] [address] 06/23/2025 Gennaro Mtz Flank pain R10.9 Assessments Encounter Date Diagnosis (ICD Code) Assessment Notes Treatment Notes Treatment Clinical Notes Section Notes 09/23/2024 Wellness examination (ICD-10 - Z00.00) ROS done exam done 12/02/2024 Encounter for examination for admission to [facility] (ICD-10 - Z02.0) 06/23/2025 Flank pain (ICD-10 - R10.9) 09/23/2024 Encounter for immunization (ICD-10 - Z23) Plan Of Treatment Pending Test Test Name Order Date CMP (COMPLETE METABOLIC PANEL) 3 CMP (COMPLETE METABOLIC PANEL) 4 HEMOGLOBIN A1C (GLYCO) 08/20/2023 HEMOGLOBIN A1C (GLYCO) 09/23/2024 HEPATITIS B SURFACE AB (HBSAB) 4 INSULIN, TOTAL 09/23/2024 LIPID PANEL (CHOL/TRIG/HDL/LDL) 09/23/20 24 LIPID PANEL (CHOL/TRIG/HDL/LDL) 08/20/20 23 CBC WITH DIFF 08/20/2023 CBC WITH DIFF 09/23/2024 MRI Brain w/o contrast 10/22/2023 MMR Immunity (LC) 09/23/2024 Varicella-Zoster V Ab, IgG 09/23/2024 US KIDNEYS BLADDER 06/23/2025 THYROID PANEL (T4/TSH/FREE T3) 4 THYROID PANEL (T4/TSH/FREE T3) 3 Insurance Providers Payer Name Payer Address Payer Phone Subscriber Number Group Number Insured Name Patient Relationship to Insured Coverage Start Date Coverage End Date [facility] [address] [place] [phone] [id number] Marco [place] Iii Spouse - patient is the spouse of the insured 4 Medications Administered Medication Instructions Date of Administration Dosage Notes Ketorolac Tromethamine 08/20/2023 60 mg 60 Ketorolac Tromethamine 10/22/2023 60 mg Orphenadrine Citrate 10/22/2023 60 mg Promethazine, 25 mg 08/20/2023 1 mL 25 Promethazine, 25 mg 10/22/2023 1 mL Medical (General) History Medical History History ICD Code Hypercholesterolemia E78.00 Kidney stone N20.0 Well adult Z00.00 Migraine G43.909 Surgical History Surgery Date(Month/Year) c section hysterectomy T/A Hospitalization History Reason Date(Month/Year) see above
--- OUTSIDE RECORDS SUMMARY | 2025-06-25 09:51 | XMS_ITS | CCD ---
Author Organization [facility] Care Team Providers Care Band Builder Name Role Phone Sadia Mtz Primary Care Physician Sadia Mtz Unavailable Emily Andrade Unavailable DR SADIA MTZ Primary Care Unavailable ISAK, DR MCCULLOUGH Admitting Unavailable ISAK, DR MCCULLOUGH Attending Unavailable ISAK, DR MCCULLOUGH Consulting Unavailable JOSH .KRYSTYNA Attending Unavailable JOSH .KRYSTYNA Admitting Unavailable ELIJAH, DR TARA Langley Consulting Unavailable ISAK, DR MCCULLOUGH Primary Care Unavailable JOSH .KRYSTYNA Consulting Unavailable ISAK, DR MCCULLOUGH Admitting Unavailable ISAK, DR MCCULLOUGH Attending Unavailable ISAK, DR MCCULLOUGH Consulting Unavailable ISAK, DR MCCULLOUGH Primary Care Unavailable STEFANO GUILLEN Attending Unavailable STEFANO GUILLEN Admitting Unavailable SAM, DR JUANITO Pizano Consulting Unavailable ISAK, DR MCCULLOUGH Primary Care Unavailable STEFANO GUILLNE Consulting Unavailable Krystyna Moreno Referring Unavailable JerricaeKrystyna MDarryl Attending Unavailable Krystyna Moreno Attending Unavailable Krystyna Moreno Referring Unavailable Jerricae Krystyna MDarryl Admitting Unavailable Krystyna Moreno Attending Unavailable BERNARD CORRALES Attending Unavailable Allergies Allergy Classification Reported Allergen(s) Allergy Type Date of Onset Reaction(s) Facility (4 sources) Meperidine; Translations: [meperidine] Drug Allergy Unknown [facility] (4 sources) Penicillin; Translations: [penicillin] Drug Allergy Unknown (qualifier value) [facility] (2 sources) Penicillin V Drug Allergy anaphylaxis [facility] Other (1 source) Meperidine Drug Allergy [facility] (1 source) Penicillins Drug allergy (disorder) [facility] Medications Current Medications Medication Drug Class(es) [...] 03/20/22 Status: Ordered take [address] [facility] every twenty-four hours Zoloft 100 MG 2 [...] procedure., # 2 tab(s), Refills(s) 0, Pharmacy: [facility], 161, cm, 10/02/22 9:51:00 EST, Height/Length [...] 02-19-2022 Episodic Other aftercare (1 source) Other intermediate card tender (current) drug therapy; Translations: [OTH CARE HOME CURRENT DRUG THERAPY] Onset: 02-19-2022 Episodic Other [...] Range Facility Coding Summary.on 12-20-2022 Coding Summary. [id number] Gh0bWw+PGhlYWQ+PE1FV FThZ45pqUUnvL5HJ0eNT E0URAKKSDNECV3VQP0bb IV4QIwaC2IxxdGh BgjpzTUcFF35TOb1FBP1 gIwuWYesfG2qyEOuG4s2 VoFyFK25jW89YBtrGNQf WeO4ZjKvqisehMAv A0txCuTveJGsIkb+PHRh YmxlIHdpZHRoPScxMDAl RuAsbXvkTK9uSv2aETZw LWNvbGxhcHNlOiBj q5lyEFXkZTryHE3iwXhd L5UfiVQ7BCCbw3j2Bu12 dHI+OFXzNRN4dQapJBxf g133JoVrj0pbIYL3 oSKnSJxeUFN6D73ot7N7 RNLfFDGdITH7zWQ1uN6d yJdipaywJ3FihBFgRjT8 AKH9nABlfB9dzBij hwnwaF0mYdx+S40XMZ8I JTGWCD0GUsu5K2WtWyzu dHI+JO17TPKuXI01wHTa xCOml7kjaTj1FrXb WOHiBWM3kIvmMUvtw9Fb NYSwX71axYOec2F1EYKa aSrwzBAcXcRwyOF0iN8z DFyyyfdlc8wirmji Iepfx0uobr32xE50N56b NLvxKGInBOY2JZVkIVMf nFnurb0sbH9qPt8+IDxj v9yss2ifmUe6KeBv ELWsnuItjFbuKUQ6t1Qc Zv21B0KvlWrxk9EtOuo5 yq47uBJbh9M5hCK0DIhg CLZxvP0xRMuhNtL2 WGJnQtTyqM08iIBjQNag El0yyXdehFulAD7wQEIp ioxkJMGgbV4hSTIsbNJi jTjyIW5pLLKoosnj z014BaKlULV8FKLyjVPv O8NjcX8wZpPeQZTkKCDl P0NgnXQvIRylL346YWnn QkS3HVCwqzPqW5Ao PQArbOdrOfY5v0G1Vi1P y8IyzrxeVFU1YCwgFMZt NsG9QzUnKsH6K7YzEfl3 GQAzqZsgYJ4hF1Ug KRFelgsjscdjnYD4NUPh FTBtlP17qUIzNQrtPc7e s9D7w903ZKKhXBRarX03 Qh7uhKnsJFAadLYC bF3dnwdnl8adslwdIiSl NMUgVQg5TJn3NQWufZyv QbMpEKL9XbA5VAO3nTPf kD0bqUhvwifjbL7t Oyc+M72meR5eLPW5MTW4 abyxIUKxsrQuKE10DV29 B6RaWoktlOGnpPQ+PGRp nlOblDrmWS1gFkYy y5rob3BaUWeqF5MiZKWl LUqoBxh2KRHqNXU2zFQ7 qY6sWFLgMAozw4W9iTT1 I4RqbwPgjt1oc9co FOGdRDzvH54amAItm9G4 TNHaaEA2SCSyfEmaTbWt gR44Pat+NUVbbKqgu3St Jdlyh7qzm5iivJj2 IjMwJSIgdmFsaWduPSJ0 v6LmIs11U30yOYbhUCZg PECeMUYuHYDlsKqcpz1x dJ8mAe4+PGNvbCB3 gSB8qX8uZTCxUcS9GRpz J478OiYrcNLrWdyow7pt k1tpyTi5ZiRdJRTgerQn bUuzRKJ2m1FzLy07 C95yIRvvTJXtSGJaFUGv YXQjnGhqtn3ohE6jNt1+ NZ5ep4yuqt47qP21dUD+ UYEfWPJ9cMcuSAgj TSLdxF0eKYgwQbZ3OPPq DyUrgA76nCReTUswSe6q iIirkIhwUI5eXAEqqiwm i376JoCmj6asPBEq kGJrHGlbPFL4O16ln8K1 FWRgTAZiWNQ0qTN1vB4e bGlnbjogbGVmdDsgdmVy bWpcCPgePSrcO945 IHRvcDsnPlBhdGllbnQg FnKzXSp5P1UkYro6YRLp fYfnWZ5ahTLrAGycCw7c xEatfJktVL9oTFMf pmpqz882OtFrq4hcYEKj wLPzNBopECG5G32de7W8 ZPJoWTQzSDS3gIO7zH5r bGlnbjogbGVmdDsg xvChdSmwYGrrYVdgY895 IHRvcDsnPkJpcnRoIERh vME6KB35HV06rIZjy9B7 iWJ9M9RnTXIdrqba khcfyII3YGPcTRDpjG14 Yr7ugRklBn4yBFZjVDQ3 WUBpaQTcR4NtmI4cQzFy PTKtUCGdN7ChmAWq UGigR804AFrrGyV1HDTl fsBqC5ZmTYAqbAuyAnG4 a8S8Xv3UA0P9JT05IC04 oYTuy3M2wEY8V1Ai TCJxaqrfevxmmBB9NKIr ERFfaI90Ej7ibQzgXt2b BRReKGF1DCOpbDAxH5Oe bB3hSrOnYRYyVRKi E2OpoTUfMQwoM251BFjb XuY2EFChqqZqY3XwAVXu aAvnAcT3p9H3Tc0ABEm3 BK74TI75lXEfj3F4 bRK7E0IfJLHbqlgnexem rDS3LXEvCXKutC05Ei8n mNobEv2nEREpJLB6AXYf mQUiY4WkqH0gQaFs IMReFUHdI7LkgXAsDXiy L190SFakIdN2RDBiufUw U4ZiHAQnqFbtKiW6l8T1 Wn1CIGLlWO95QHF8 sVI2DP35JT42C1PfHzfb dGFibGU+PHRhYmxlIHdp ZHRoPScxMDAlJyBzdHls TV2eWa1bRFCfZKSu xLjveSSmYqFrl8onOHYu PNwfXB5pnIidD9JqfXZ5 WQGao5e9Nq17G55jN1Sc dXA+KIKujCK6aDB6 bV7zZfCiRhL6WJecK734 CsBuvDIcHqfyj4hdr9ld eYo4LyQ5WFZkoeZexFhv CLY5k3PzDn61K59j IHdpZHRoPSIxNSUiIHZh yNavwg4fhC6kGd5+PGNv jEF2kFV2xS1yNbEaZhI9 WWbnS051ZtQowEUp Iqgxs4utx5iwaUc7NxUn TDSkawAmwTahRVX0g0Dl Lv86J2QyeQpft9FqXdc4 in53eBAzw3S0qNH2 S1NrCPXldezjxDPmfVyj IE4qWQWvhkkkSNOogO8y TSMdS0t5DoFzLiZ6TDdl U1DisfR5IWRbwUOs YHcnNNU7C57zv9A8FJLs ZYOeMFK4fJJ0pE7kyPsd bjogbGVmdDsgdmVydGlj IWwsWCgkE624VJRh sCpmXYWcsP0oTPLwaNBi lEmmZJ7cAOFjhqdnUdYH ArAsHQUHMMMZQB8DBJJO NO92UX96wNZmg5G9 uPX9C7LwXKGtebfnenmt xIV9NGSiWPYflQ61kMTz ZIajUg6hi3R4d237MMRq IDZfqB10Gc1kjCxs YYXkxCGXyU7ywzjop6ph talgCqGnMFUsJSu7ETw0 YELjnWurRbApGVM9HhD7 JEH1aUXdwJ6aqGkd uukckI9tArz+MDgvMTEv BOs0SRvucTR+PHRkIHN0 uSjoBUvzEPTgsY1sDUKc M1x6ZcUxQkZ5QZzr L0MvSBZystmcTe58hN3q RxCcElL4SCpgH6FrumK3 JQRrhNIuAMvoISX7Q06i h8D7QPUwIGWrKCN0 pJD0rP5ywFyuwwjatKLk dDsgdmVydGljYWwtYWxp B298BIKjaSqdRkC0GNkt YUVhIZ47QH62eYWu u6N9pFR2A7SmRFQzbkrn ngdipDL1QUSiRMLgqB50 jTJlZJzlWe5ho3H0k637 SEElXYAfoG99Fh3f sYwrRPVzqZWUhQ5xvide r7ougbdbXiMpOOQtNMq1 TLg6PZMsiQkeXuWsPCW2 ZlU6IAL1zIYpvC0o uQpdzrhcbO7gXiw+RmVt RKhbRP83UU53fIPxt6R5 dCL6J3JbSRHpfprzjvhd jHE6IIQlKWUffP61 fNPhFJzoJe2gx3M8v378 WUViSDMkrE28Yy7wxDkj WJGngNITsO2moxrdu2dv cjogIzAwMDAwMDt0 BNt2GCPtyFwcAzJdZFA9 MdO6IAP7kANolI7htAvr ljkutE2aXpu+O3G7mDZ7 aWVudDwvdGQ+PC90 ke80D7XuBnzxDic6LNDo YME1hFN7rB2rAYQdADge w6K0dRE9R0AdgvRrrn7i o8mtZFSiJSjzX60n kBVlk8S9PRZzzUY6HCCw xSzjRaImgV37Zbu+PGNv kGune3XmQwaey0atq8mp oEy6BfBlKKUgwdSv qKqiFCE9v6NeSy70L15a IHdpZHRoPSIzMCUiIHZh cKdhgq9smZ4hLt8+PGNv cSB1uYR0cY3zRbCv NrJ8VIdlU622DoApcZWg Xnfaw8emu6hewSr6EnQn JODqeyHjxMjdJAH5m1Cm Cm64F2GpmWtcy5If Thp5tr00lHPyx4X1gNV3 Z3JgCCOoanxwxFGtbGxa AJ5pNAHbtsujODWkeA2o PLPcY7l2EiPlKzS8 HHbaL4KkfaT8CZZobXGe MZViaCIPeN0hwiucj7zt sbqaVrDmCBCiMIc1DPf2 LWFsaWduOiBsZWZ0 OhO7AYD6uKRqvL9quBnh tbguyI9hXpc+USj9s2sh wHSaNK7kpYI9CR60MM84 kKGqs1L6jUO1Z7Oq YFEiwlcyhsohzDJ0YHEs UKZzeK71Mp5ggLygHd7y ZXGaPXD1MEZjzPNyN7Ij eI6jTkCbKAAnHVAv O1RcsWNnEEogB276UCpe VcF6WYNgxqOxA6SeJYQq bEoqWmS0s5A2Lk7QOP52 FF37BS63sXJkn2H0 aCQ3U1EoYYAlbegkfoif vZH5APKfEMFpuW18Xk7b uGakWg5cJHYyHDE0BTXh uZLoA9OddZ6uMcKn CXYoAQKeT9SyzNGiPIpu Q900UWnhXsM6HNMczpCd Y0AmMXZzqZytEqE4h5Q7 Bj9FEx62YE23BM57 iUCyi7Y6nHT5O8DsRILd zkpalvnbiSG4IFBkCYBs rP25Mn4sgYxrRy2wUUTw CIM9ZABjpPHyZ8Zu eX3qNdIxMGRaUFGlA2Ic jWHuJQbuP249COrkJdK8 CVGqwbLnD1RqTZVtkOdt JkE0o4R2Ym6IICgs tyr6O8FxDgzgaPT+PC90 NTCuON69aXHfnPCwh2vo mOm3XbFjYIKcRXM5vGvc WCoza4PbIUElI56u bGFw (more content not included)... Normal [facility] Consent for Procedure/Surger yon 12-19-2022 Consent for Procedure/Surgery [id number] #1.00CD:127 Normal [facility] IntraOperative Documentson 0 12-19-2022 IntraOperative Documents [id number] #1.00CD:127 Normal [facility] Consent for Treatmenton 11-25 Consent for Treatment [id number] #1.00CD:127 Normal [facility] Inpatient Patient Summaryon 12-16-2022 Inpatient Patient Summary [address] [address] Clinical Summary Person Information Name: EMILY BEGUM Age: 37 Years : 1985 Sex: Female PCP: Sadia Mtz MD Marital Status: Race: White Ethnicity: Non- or Language: Thai Visit Id: Visit Reason: HX RECURRENT UTI MICROSCOPIC HEMATURIA Speciality: Acuity: Enc Type: Outpatient Med Service: Surgery Arrival: 12/16/2022 08:34:49 Discharge: Dispo Type: Address: [address] [place] [address] [phone] Provider Notes: Diagnosis: Asymptomatic microscopic hematuria; History [...] Follow up: With: Address: When: Krystyna Moreno [address] [place] [address] [phone] Business (1) [address], [address] [address] [phone] Business (1) Comments: Office to schedule follow up in 3-6 months Type Location Start Finish State URO Office Visit [facility] 10/08/2023 10:00 AM 10/08/2023 10:15 AM Confirmed Patient Education Information: EU - Cystoscopy Discharge Instructions (CUSTOM) [facility] Main OR Intraoperative Recor don 12-16-2022 Main OR Intraoperative Record IntraOp Document Type FTURO Summary Primary Physician: Krystyna Moreno MD Finalized Date/Time: 12/16/22 09:31:42 Pt. Name: SHY EMILYANTONI Cortes/Sex: 1985 Female Med Rec #: [id number] Physician: Krystyna Moreno MD Financial #: [id number] Pt. Type: O Room/Bed: / Admit/Disch: 12/16/22 08:34:49 - Institution: Case Times FTURO Entry 1 Patient Times In Room 12/16/22 09:08:00 Out Room 12/16/22 09:30:00 Procedure Times Start 12/16/22 09:19:00 Stop 12/16/22 09:27:00 Anesthesia Times Last Modified By: Bart REGAN, PATTIEOR, Crystal 12/16/22 09:23:49 Case Attendance FTURO Entry 1 Entry 2 Entry 3 Case Attendee Krystyna Moreno MD RN, CNOR, Mau SANON, Sherley Rojas Role Performed Surgeon - Primary Couples Therapist - Primary Scrub - Primary Time In 12/16/22 09:08:00 12/16/22 09:08:00 12/16/22 09:08:00 Time Out 12/16/22 09:30:00 12/16/22 09:30:00 12/16/22 09:30:00 Procedure CYSTOSCOPY LOCAL(.) CYSTOSCOPY LOCAL(.) CYSTOSCOPY LOCAL(.) Comments Last Modified By: Bart RN, CNOR, Bart RN, CNOR, Bart RN, PATTIEOR, Crystal 12/16/22 Crystal 12/16/22 Crystal 12/16/22 09:23:50 09:23:50 09:23:50 Surgical Procedures FTURO Entry 1 Procedure Description Procedure CYSTOSCOPY LOCAL Modifiers . Surgeon Description cysto Primary Procedure Yes Primary Surgeon Krystyna Moreno MD Start 12/16/22 09:19:00 Stop 12/16/22 09:27:00 Anesthesia Type Local Surgical Service Urology Wound Class 2 - Clean-Contaminated Last Modified By: SOUMYA Arriaga RN, Ruthann 12/16/22 09:23:51 General Case Data [...] Position Verified Availability Equipment, Medication Time Out Josh INFANTE, Krystyna Barillas, Verified (If Participants Bart REGAN, PATTIEOR, Applicable) Mau Rojas CST, Sherley Reyna Time [...] SOUMYA Arriaga RN, Ruthann 12/16/22 09:31 Normal [facility] Main OR Preoperative Recordo n 12-16-2022 Main OR Preoperative Record Holding Area Document Type FTURO Summary Primary Physician: Krystyna Moreno MD Finalized Date/Time: 12/16/22 09:14:22 Pt. Name: SHY EMILYANTONI Cortes/Sex: 1985 Female Med Rec #: [id number] Physician: Krystyna Moreno MD Financial #: [id number] Pt. Type: O Room/Bed: / Admit/Disch: 12/16/22 [...] No Pain Comment: na Skin Integrity Intact, [place], Warm, & Dry Vitals - EU Blood Pressure Pulse Respirations SPO2 RN Reviewed Yes Last Modified By: SOUMYA Arriaga RN, Ruthann 12/16/22 09:14:21 Finalized By: SOUMYA Arriaga RN Crystal Document Signatures Signed By: Amy Rosales LPN 12/16/22 08:45 Amy Rosales LPN 12/16/22 08:45 SOUMYA Arriaga RN, Ruthann 12/16/22 09:14 Normal [facility] Operative Reporton Operative Report Patient: EMILY BEGUM Age: 37 years Sex: Female : 1985 Associated Diagnoses: None Author: Krystyna Moreno MD Procedure Operative Information Details: Date/ Time: 12/16/2022 09:30:00. Pre-Op Dx: History of recurrent UTIs (QLC99-SL Z87.440, Discharge, Medical), Asymptomatic microscopic hematuria (UOY73-TD R31.21, Discharge, Medical). Post-Op Dx: Same. Anesthesia [...] up arranged. Pt states prior eval by Gang Worker neg, has always had skin lesions. 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 Follow up in 3-6 months . Normal [facility] Comment on above: Result Comment: Elec tronically Signed By: Krystyna Moreno MD\.br\Date and Time Signed: 12/16/22 09:33 EST Outpatient Surgery Discharge Instructionon 12-16-2022 Outpatient Surgery Discharge Instruction [place] [address] Patient Discharge Instructions PERSON INFORMATION Name: EMILY [...] With: Address: When: Krystyna Moreno [address] [phone] Business (1) [address] [place] [address], [place] [address], [place] [phone] [facility] (1) Comments: Office to schedule follow up in 3-6 months Type Location Start [facility] URO Office Visit [facility] [place] 10/08/2023 10:00 AM 10/08/2023 10:15 AM Confirmed [...] you have a fever over 100 degrees. I SHY EMILY Maribell, have received the attached patient education materials/instructio ns and have verbalized understanding: May we do a follow up call? Yes No I was present when discharge instructions were given Patient Signature Date Clinican/Nurse Signature Date You may receive a survey from [employer] asking you to rate your care experience. Your feedback is important and will help us understand what we do well and how we can improve the quality of care we provide to you, your loved ones and our community. It?s an honor to serve you. Thank you for choosing [facility] Normal [facility] Provider Letteron 11-21-2022 Provider Letter November 21, 2022 EMILY MORENO [address] [place] [phone] EMILY MORENO 1985 Dear Emily , We have been trying to reach you with no success to schedule your cystoscopy with Dr. Krystyna Moreno MD. is important that you return our call upon receiving this letter. Also, at the time of your call, please provide us with your current information. Thank you for your prompt attention to this matter. Sincerely, [facility] [address] [place] [address] Normal [facility] INSULINon 10-03-2022 Insulin 7.2 uIU/mL Normal 2.6-24.9 [facility] Comment on above: Performed By: #### I NSULIN ####[facility] [address] [place] [address]DrDarryl Munoz CBC AUTO DIFFon 10-02-2022 BASO # 0.1 103/ul Normal 0.0-0.1 [facility] Comment on above: Performed By: #### C BC ####[facility] [address] [place], [place] [address]DrDarryl Munoz Basophils/100 WBC (Bld) 1.1 % Normal 0.2-2.0 [facility] Comment on above: Performed By: #### C BC ####[facility] Fulq[address]dox[address] [place], [place] [address]DrDarryl Munoz EO # 0.1 103/ul Normal 0.0-0.7 [facility] Comment on above: Performed By: #### C BC ####[facility] [address] [place], [place] [address]DrDarryl Munoz Eosinophils/100 WBC (Bld) 1.7 % Normal 0.9-7.0 [facility] Comment on above: Performed By: #### C BC ####[facility] V[address] [place], [place] [address]DrDarryl Munoz Erythrocyte distribution width (RBC) [Ratio] 12.3 % Normal 11.0-15.0 [facility] Comment on above: Performed By: #### C BC ####[facility] [address] [place], [place] [address]DrDarryl Munoz Hematocrit (Bld) [Volume fraction] 41.8 % Normal 36.0-48.0 [facility] Comment on above: Performed By: #### C BC ####[facility] [address] [place], [place] [address]Dr. Rodger Munoz Hemoglobin (Bld) [Mass/Vol] 14.1 g/dL Normal 12.0-16.0 [facility] Comment on above: Performed By: #### C BC ####[facility] [address] [place] [address]Dr. Rodger Munoz IG # 0.01 10e3/ul Normal 0.00-0.03 [facility] Comment on above: Performed By: #### C BC ####[facility] [address] [place], [place] [address]Dr. Rodger Munoz IG % 0.2 % Normal 0.0-0.5 [facility] Comment on above: Performed By: #### C BC ####[facility] [address] [place], [place] [address]DrDarryl Munoz LYMPH # 1.9 103/ul Normal 1.2-3.8 [facility] Comment on above: Performed By: #### C BC ####[facility] W[address]fch[address] [place], [place] [address]Dr. Rodger Munoz Lymphocytes/100 WBC (Bld) 36.3 % Normal 20.5-60.0 [facility] Comment on above: Performed By: #### C BC ####[facility] [address] [place], [place] [address]DrDarryl Munoz MANUAL DIFF REQ NO Normal [facility] Comment on above: Performed By: #### C BC ####[facility] [address]nx[address] [place], [place] [address]Dr. Rodger Munoz MCH (RBC) [Entitic mass] 29.0 pg Normal 26.7-34.0 [facility] Comment on above: Performed By: #### C BC ####[facility] [address]ds[address] [place], [place] [address]Dr. Rodger Munoz MCHC (RBC) [Mass/Vol] 33.7 g/dL Normal 29.9-35.2 [facility] Comment on above: Performed By: #### C BC ####[facility] R[address]mff[address] [place], [place] [address]Dr. Rodger Munoz MCV (RBC) [Entitic vol] 85.8 fL Normal 81.0-99.0 [facility] Comment on above: Performed By: #### C BC ####[facility] Al[address]ml[address] [place], [place] [address]DrDarryl Rodger Munoz MONO # 0.3 103/ul Normal 0.3-0.8 [facility] Comment on above: Performed By: #### C BC ####[facility] [address] [place], [place] [address]DrDarryl Rodger Alexander Monocytes/100 WBC (Bld) 6.1 % Normal 1.7-12.0 [facility] Comment on above: Performed By: #### C BC ####[facility] N[address] [place], [place] [address]DrDarryl Rodger Munoz NEUT # 2.9 103/ul Normal 1.4-6.5 [facility] Comment on above: Performed By: #### C BC ####[facility] [address] [place], [place] [address]DrDarryl Rodger Alexander Neutrophils/100 WBC (Bld) 54.6 % Normal 43.0-75.0 [facility] Comment on above: Performed By: #### C BC ####[facility] [address] [place], [place] [address]DrDarryl Rodger Munoz Platelet mean volume (Bld) [Entitic vol] 10.4 fL Normal 9.5-13.5 [facility] Comment on above: Performed By: #### C BC ####[facility] [address] [place], [place] [address]DrDarryl Rodger Alexander PLT 205 103/ul Normal 150-450 [facility] Comment on above: Performed By: #### C BC ####[facility] [address] [place], [place] [address]DrDarryl Munoz RBC 4.87 106/ul Normal 4.20-5.40 [facility] Comment on above: Performed By: #### C BC ####[facility] [address] [place], [place] [address]DrDarryl Munoz WBC 5.2 103/ul Normal 4.0-11.0 [facility] Comment on above: Performed By: #### C BC ####[facility] [address] [place] [address]Dr. Rodger Munoz FREE THYROXINE INDEX T7on FTI 2.04 Normal 1.30-4.50 [facility] Comment on above: Performed By: #### T 7, LIPID, TSH, CMP #### [facility] [address] [place] [address] [address] Rodger Munoz T3U 34.0 % Normal 30.0-39.0 [facility] Comment on above: Performed By: #### T 7, LIPID, TSH, CMP #### [facility] [address] [place] [address] [address] Rodger Munoz T4 [Mass/Vol] 6.00 ug/dL Normal 4.80-13.90 [facility] Comment on above: Performed By: #### T 7, LIPID, TSH, CMP #### [facility] [address] [place] [address] [address] Rodger Munoz GLYCOHEMOGLOBIN A1Con 2021 ADA RECOMMENDATION SEE BELOW Normal [facility] Comment on above: Result Comment: ADA RECOMMENDED LIMIT 4.0 - 6.0 ADA THERAPEUTIC TARGET < 7.0 ACTION SUGGESTED > 7.0 Performed By: #### A 1C #### [facility] [address] [address] [address] Rodger Munoz Glucose [Mass/Vol] 105 mg/dL Normal [facility] Comment on above: Performed By: #### A 1C #### [facility] [address] [address] [address] Rodger Munoz HbA1c (Bld) [Mass fraction] 5.3 % Normal 4.5-6.2 [facility] Comment on above: Performed By: #### A 1C #### [facility] [address] [address] [address] Rodger Munoz IRONon 10-02-2022 Iron [Mass/Vol] 75.0 ug/dL Normal 50.0-170.0 [facility] Comment on above: Performed By: #### I RUDDY ####[facility] [id number] [place], [place] [address]RdDr. Rodger Munoz LIPID PROFILEon 10-02-2022 CHOL-HDL RATIO NORM SEE BELOW Normal [facility] Comment on above: Result Comment: 3.3 - 4.4 LOW RISK 4.4 - 7.1 AVERAGE RISK 7.1 - 11.0 MODERATE RISK >11.0 HIGH RISK Performed By: #### T 7, LIPID, TSH, CMP #### [facility] [address] [address] [address] Rodger Munoz Cholesterol [Mass/Vol] 216 mg/dL Critically high <=200 [facility] Comment on above: Performed By: #### T 7, LIPID, TSH, CMP #### [facility] [address] [address] [address] Rodger Munoz Cholesterol in HDL [Mass/Vol] 84 mg/dL Critically high 40-60 [facility] Comment on above: Performed By: #### T 7, LIPID, TSH, CMP #### [facility] [address] [address] [address] Rodger Munoz Cholesterol in LDL [Mass/Vol] 119.6 mg/dL Normal [facility] Comment on above: Performed By: #### T 7, LIPID, TSH, CMP #### [facility] [address] [address] [address] Rodger Munoz Cholesterol.total/Ch olesterol in HDL [Mass ratio] 2.6 {ratio} Normal [facility] Comment on above: Performed By: #### T 7, LIPID, TSH, CMP #### [facility] [address] [address] [address] Rodger Munoz HDL NORMAL > or = 60 mg/dl - LOW CARDIOVASCULAR RISK <40 mg/dl - HIGH CARDIOVASCULAR RISK Normal [facility] Comment on above: Performed By: #### T 7, LIPID, TSH, CMP #### [facility] [address] [address] [address] Rodger Munoz LDL CALC NORMAL SEE BELOW Normal [facility] Comment on above: Result Comment: <100 mg/dl OPTIMAL 100 - 129 mg/dl NEAR OR ABOVE OPTIMAL 130 - 159 mg/dl BORDERLINE HIGH 160 - 189 mg/dl HIGH >190 mg/dl VERY HIGH Performed By: #### T 7, LIPID, TSH, CMP #### [facility] [address] [place] [address] Dr. Rodger Munoz Triglyceride [Mass/Vol] 62 mg/dL Normal <=150 [facility] Comment on above: Performed By: #### T 7, LIPID, TSH, CMP #### [facility] [address] [place] [address] Dr. Rodger Munoz VLDL CALC 12.4 mg/dL Normal [facility] Comment on above: Performed By: #### T 7, LIPID, TSH, CMP #### [facility] [address] [place] [address] Dr. Rodger Munoz PROF 14(COMP METB)on 022 Albumin [Mass/Vol] 4.1 g/dL Normal 3.4-5.0 [facility] Comment on above: Performed By: #### T 7, LIPID, TSH, CMP #### [facility] [address] [place] [address] Dr. Rodger Munoz Albumin/Globulin [Mass ratio] 1.2 {ratio} Normal [facility] Comment on above: Performed By: #### T 7, LIPID, TSH, CMP #### [facility] [address] [place] [address] Dr. Rodger Munoz ALP [Catalytic activity/Vol] 108 U/L Normal 46-116 [facility] Comment on above: Performed By: #### T 7, LIPID, TSH, CMP #### [facility] [address] [place] [address] Dr. Rodger Munoz ALT [Catalytic activity/Vol] 15 U/L Normal 14-59 [facility] Comment on above: Performed By: #### T 7, LIPID, TSH, CMP #### [facility] [address] [place] [address] Dr. Rodger Munoz Anion gap [Moles/Vol] 6.5 mmol/L Normal [facility] Comment on above: Performed By: #### T 7, LIPID, TSH, CMP #### [facility] [address] [place] [address] Dr. Rodger Munoz AST [Catalytic activity/Vol] 11 U/L Critically low 15-37 [facility] Comment on above: Performed By: #### T 7, LIPID, TSH, CMP #### [facility] [address] [place] [address] Dr. Rodger Munoz Bilirubin [Mass/Vol] 0.4 mg/dL Normal 0.2-1.0 [facility] Comment on above: Performed By: #### T 7, LIPID, TSH, CMP #### [facility] [address] [place] [address] Dr. Rodger Munoz Calcium [Mass/Vol] 9.1 mg/dL Normal 8.5-10.1 [facility] Comment on above: Performed By: #### T 7, LIPID, TSH, CMP #### [facility] [address] [place] [address] Dr. Rodger Munoz Chloride [Moles/Vol] 101 mmol/L Normal 98-107 [facility] Comment on above: Performed By: #### T 7, LIPID, TSH, CMP #### [facility] [address] [place] [address] Dr. Rodger Munoz CO2 [Moles/Vol] 33.6 mmol/L Critically high 21.0-32.0 [facility] Comment on above: Performed By: #### T 7, LIPID, TSH, CMP #### [facility] [address] [place] [address] Dr. Rodger Munoz Creatinine [Mass/Vol] 0.65 mg/dL Normal 0.55-1.02 [facility] Comment on above: Performed By: #### T 7, LIPID, TSH, CMP #### [facility] [address] [place] [address] Dr. Rodger Munoz EGFR-AF ANGOLAN >60 Normal >=60 [facility] Comment on above: Performed By: #### T 7, LIPID, TSH, CMP #### [facility] [address] [place] [address] Dr. Rodger Munoz EGFR-NON AF ANGOLAN >60 Normal >=60 [facility] Comment on above: Performed By: #### T 7, LIPID, TSH, CMP #### [facility] [address] [address] [address] Rodger Munoz Globulin (S) [Mass/Vol] 3.3 g/dL Normal [facility] Comment on above: Performed By: #### T 7, LIPID, TSH, CMP #### [facility] [address] [address] [address] Rodger Munoz Glucose [Mass/Vol] 94 mg/dL Normal 74-106 [facility] Comment on above: Performed By: #### T 7, LIPID, TSH, CMP #### [facility] [address] [place] [address] Dr. Rodger Munoz Potassium [Moles/Vol] 4.1 mmol/L Normal 3.5-5.1 [facility] Comment on above: Performed By: #### T 7, LIPID, TSH, CMP #### [facility] [address] [place] [address] Dr. Rodger Munoz Protein [Mass/Vol] 7.4 g/dL Normal 6.4-8.2 [facility] Comment on above: Performed By: #### T 7, LIPID, TSH, CMP #### [facility] [address] [place] [address] Dr. Rodger Munoz Sodium [Moles/Vol] 137 mmol/L Normal 136-145 [facility] Comment on above: Performed By: #### T 7, LIPID, TSH, CMP #### [facility] [address] [place] [address] Dr. Rodger Munoz Urea nitrogen [Mass/Vol] 16.0 mg/dL Normal 7.0-18.0 [facility] Comment on above: Performed By: #### T 7, LIPID, TSH, CMP #### [facility] [address] [place] [address] Dr. Rodger Munoz Urea nitrogen/Creatinine [Mass ratio] 24.6 mg/mg Normal [facility] Comment on above: Performed By: #### T 7, LIPID, TSH, CMP #### [facility] [address] [place], [place] [address] Dr. Rodger Munoz TSHon 10-02-2022 TSH 1.112 uIU/mL Normal 0.358-3.740 [facility] Comment on above: Performed By: #### T 7, LIPID, TSH, CMP #### [facility] [address] [place], [place] [address] Dr. Rodger Munoz US KIDNEYSon 09-24-2022 US [...] by: TARA NAVA Date: 2022-09-24 12:17 Normal [facility] XR KUB 1 VIEWon 09-24-2022 XR KUB [...] by: TARA NAVA Date: 2022-09-24 10:50 Normal [facility]on SARS-CoV-2 (COVID-19) RNA EVY+probe Ql (Unsp spec) Detected Critically abnormal NOT DETECTED [facility] Comment on above: Result Comment: This test is not yet approved or cleared by the [place] FDA. When there are no FDA-approved or cleared tests available, and other criteria are met, FDA can make tests available under an emergency access mechanism called an Emergency Use Authorization (EUA). The EUA for this test is supported by the [place] of Health and Human Service's (HHS's) declaration [...] used). Performed By: #### C VDTB #### [facility] [address] [place] [address] Dr. Rodger Munoz CBC AUTO DIFFon 02-16-2022 BASO # 0.1 103/ul Normal 0.0-0.1 [facility] Comment on above: Performed By: #### C BC #### [facility] [address] [place] [address] Dr. Rodger Munoz Basophils/100 WBC (Bld) 0.5 % Normal 0.2-2.0 [facility] Comment on above: Performed By: #### C BC #### [facility] [address] [place] [address] Dr. Rodger Munoz EO # 0.2 103/ul Normal 0.0-0.7 [facility] Comment on above: Performed By: #### C BC #### [facility] [address] [place] [address] Dr. Rodger Munoz Eosinophils/100 WBC (Bld) 1.1 % Normal 0.9-7.0 [facility] Comment on above: Performed By: #### C BC #### [facility] [address] [place] [address] Dr. Rodger Munoz Erythrocyte distribution width (RBC) [Ratio] 13.1 % Normal 11.0-15.0 [facility] Comment on above: Performed By: #### C BC #### [facility] [address] [address] [address] Rodger Munoz Hematocrit (Bld) [Volume fraction] 45.7 % Normal 36.0-48.0 [facility] Comment on above: Performed By: #### C BC #### [facility] [address] [address] [address] Rodger Munoz Hemoglobin (Bld) [Mass/Vol] 15.3 g/dL Normal 12.0-16.0 [facility] Comment on above: Performed By: #### C BC #### [facility] [address] [address] [address] Rodger Munoz IG # 0.07 10e3/ul Critically high 0.00-0.03 [facility] Comment on above: Performed By: #### C BC #### [facility] [address] [address] [address] Rodger Munoz IG % 0.5 % Normal 0.0-0.5 [facility] Comment on above: Performed By: #### C BC #### [facility] [address] [address] [address] Rodger Munoz LYMPH # 2.4 103/ul Normal 1.2-3.8 [facility] Comment on above: Performed By: #### C BC #### [facility] [address] [place] [address] Dr. Rodger Munoz Lymphocytes/100 WBC (Bld) 17.6 % Critically low 20.5-60.0 [facility] Comment on above: Performed By: #### C BC #### [facility] [address] [address] [address] Rodger Munoz MANUAL DIFF REQ NO Normal [facility] Comment on above: Performed By: #### C BC #### [facility] [address] [place] [address] Dr. Rodger Munoz MCH (RBC) [Entitic mass] 29.0 pg Normal 26.7-34.0 [facility] Comment on above: Performed By: #### C BC #### [facility] [address] [address] [address] Rodger Munoz MCHC (RBC) [Mass/Vol] 33.5 g/dL Normal 29.9-35.2 [facility] Comment on above: Performed By: #### C BC #### [facility] [address] [address] [address] Rodger Munoz MCV (RBC) [Entitic vol] 86.7 fL Normal 81.0-99.0 [facility] Comment on above: Performed By: #### C BC #### [facility] [address] [address] [address] Rodger Munoz MONO # 1.0 103/ul Critically high 0.3-0.8 [facility] Comment on above: Performed By: #### C BC #### [facility] [address] [place] [address] Dr. Rodger Munoz Monocytes/100 WBC (Bld) 7.2 % Normal 1.7-12.0 [facility] Comment on above: Performed By: #### C BC #### [facility] [address] [address] [address] Rodger Munoz NEUT # 10.0 103/ul Critically high 1.4-6.5 [facility] Comment on above: Performed By: #### C BC #### [facility] [address] [place] [address] Dr. Rodger Munoz Neutrophils/100 WBC (Bld) 73.1 % Normal 43.0-75.0 [facility] Comment on above: Performed By: #### C BC #### [facility] [address] [address] [address] Rodger Munoz Platelet mean volume (Bld) [Entitic vol] 10.2 fL Normal 9.5-13.5 [facility] Comment on above: Performed By: #### C BC #### [facility] [address] [address] [address] Rodger Munoz PLT 277 103/ul Normal 150-450 [facility] Comment on above: Performed By: #### C BC #### [facility] [address] [address] [address] Rodger Munoz RBC 5.27 106/ul Normal 4.20-5.40 [facility] Comment on above: Performed By: #### C BC #### [facility] [id number] Rodger Munoz WBC 13.7 103/ul Critically high 4.0-11.0 [facility] Comment on above: Performed By: #### C BC #### [facility] [phone] Rodger Munoz [address] ABD/PELVIS WO CONon [...] JUANITO VARGAS Date: 2022-02-16 14:49 Normal [facility] CULTURE URINEon 02-16-2022 CULTURE URINE Culture Observations: LIGHT GROWTH OF MIXED GENITAL JED. NO POTENTIAL PATHOGENS SEEN. Normal [facility] Comment on above: Performed By: #### U RCX #### [facility] [address] [place] [address] Dr. Rodger Munoz ER URINE PROFILEon 2 Bilirubin Ql (U) Negative Normal NEGATIVE [facility] Comment on above: Performed By: #### U MICRO, ERUR ####[facility] [address] [place], [place] [address]Dr. Rodger Munoz Clarity (U) CLEAR Normal CLEAR [facility] Comment on above: Performed By: #### U MICRO, ERUR ####[facility] [address] [place], [place] [address]Dr. Rodger Munoz Color (U) LT. YELLOW Normal YELLOW [facility] Comment on above: Performed By: #### U MICRO, ERUR ####[facility] [address] [place], [place] [address]Dr. Rodger SANTO A micrscopic examination will be performed if indicated. Normal [facility] Comment on above: Performed By: #### U MICRO, ERUR ####[facility] [address] [place], [place] [address]Dr. Rodger Munoz Glucose Ql (U) Negative Normal NEGATIVE [facility] Comment on above: Performed By: #### U MICRO, ERUR ####[facility] [address] [place], [place] [address]Dr. Rodger Munoz Hemoglobin Ql (U) LARGE Abnormal NEGATIVE [facility] Comment on above: Performed By: #### U MICRO, ERUR ####[facility] [address] [place], [place] [address]Dr. Rodger Munoz Ketones Ql (U) Negative Normal NEGATIVE [facility] Comment on above: Performed By: #### U MICRO, ERUR ####[facility] [address] [place], [place] [address]Dr. Rodger Munoz LEUKOCYTES LARGE Abnormal NEGATIVE [facility] Comment on above: Performed By: #### U MICRO, ERUR ####[facility] [address] [place], [place] [address]Dr. Rodger Munoz Nitrite Ql (U) Negative Normal NEGATIVE [facility] Comment on above: Performed By: #### U MICRO, ERUR ####[facility] [address] [address]Dr. Rodger Munoz pH (U) 7.0 [pH] Normal 5-9 [facility] Comment on above: Performed By: #### U MICRO, ERUR ####[facility] [address] [address]Dr. Rodger Munoz SPEC GRAVITY <=1.005 Abnormal 1.005-<=1.025 [facility] Comment on above: Performed By: #### U MICRO, ERUR ####[facility] [address] [address]Dr. Rodger Munoz UA PROTEIN TRACE Normal NEGATIVE/ TRACE [facility] Comment on above: Performed By: #### U MICRO, ERUR ####[facility] [address] [address]Dr. Rodger Munoz UR MICRO IND INDICATED Normal [facility] Comment on above: Performed By: #### U MICRO, ERUR ####[facility] [address] [address]Dr. Rodger Munoz Urobilinogen Qn (U) 0.2 {Meghan'U}/dL Normal 0.2 - 1. 0 [facility] Comment on above: Performed By: #### U MICRO, ERUR ####[facility] [address] [address]Dr. Rodger Munoz PROF 14(COMP METB)on 022 Albumin [Mass/Vol] 4.4 g/dL Normal 3.4-5.0 [facility] Comment on above: Performed By: #### C MP ####[facility] [address] [address]Dr. Rodger Munoz Albumin/Globulin [Mass ratio] 1.3 {ratio} Normal [facility] Comment on above: Performed By: #### C MP ####[facility] [address] [address]Dr. Rodger Munoz ALP [Catalytic activity/Vol] 106 U/L Normal 46-116 [facility] Comment on above: Performed By: #### C MP ####[facility] [address] [phone]. Rodger Munoz ALT [Catalytic activity/Vol] 15 U/L Normal 14-59 [facility] Comment on above: Performed By: #### C MP ####[facility] [address] [address]Dr. Rodger Munoz Anion gap [Moles/Vol] 10.4 mmol/L Normal [facility] Comment on above: Performed By: #### C MP ####[facility] [address] [address]Dr. Rodger Munoz AST [Catalytic activity/Vol] 19 U/L Normal 15-37 [facility] Comment on above: Performed By: #### C MP ####[facility] [address] [place], [place] [address]Dr. Rodger Munoz Bilirubin [Mass/Vol] 0.8 mg/dL Normal 0.2-1.3 [facility] Comment on above: Performed By: #### C MP ####[facility] [address] [place], [place] [address]Dr. Rodger Munoz Calcium [Mass/Vol] 9.3 mg/dL Normal 8.5-10.1 [facility] Comment on above: Performed By: #### C MP ####[facility] [address] [place], [place] [address]Dr. Rodger Munoz Chloride [Moles/Vol] 102 mmol/L Normal 98-107 [facility] Comment on above: Performed By: #### C MP ####[facility] [address] [address]Dr. Rodger Munoz CO2 [Moles/Vol] 29.5 mmol/L Normal 22.0-30.0 [facility] Comment on above: Performed By: #### C MP ####[facility] [address] [place], [place] [address]Dr. Rodger Munoz Creatinine [Mass/Vol] 0.62 mg/dL Normal 0.52-1.04 [facility] Comment on above: Performed By: #### C MP ####[facility] [address] [id number]. Rodger Munoz EGFR-AF ANGOLAN >60 Normal >=60 [facility] Comment on above: Performed By: #### C MP ####[facility] [address] [address]Dr. Rodger Munoz EGFR-NON AF ANGOLAN >60 Normal >=60 [facility] Comment on above: Performed By: #### C MP ####[facility] [address] [place], [place] [address]Dr. Rodger Munoz Globulin (S) [Mass/Vol] 3.5 g/dL Normal [facility] Comment on above: Performed By: #### C MP ####[facility] [address] [place], [place] [address]Dr. Rodger Alexander Glucose [Mass/Vol] 81 mg/dL Normal 74-106 [facility] Comment on above: Performed By: #### C MP ####[facility] [address] [place], [place] [address]Dr. Rodger Alexander Potassium [Moles/Vol] 3.9 mmol/L Normal 3.4-5.0 [facility] Comment on above: Performed By: #### C MP ####[facility] [address] [place], [place] [address]Dr. Rodger Alexander Protein [Mass/Vol] 7.9 g/dL Normal 6.1-8.2 [facility] Comment on above: Performed By: #### C MP ####[facility] [address] [place], [place] [address]Dr. Rodger Alexander Sodium [Moles/Vol] 138 mmol/L Normal 137-145 [facility] Comment on above: Performed By: #### C MP ####[facility] [address] [place], [place] [address]Dr. Rodger Alexander Urea nitrogen [Mass/Vol] 13.0 mg/dL Normal 7.0-18.0 [facility] Comment on above: Performed By: #### C MP ####[facility] [address] [place], [place] [address]Dr. Yiailyn Munoz Urea nitrogen/Creatinine [Mass ratio] 21.0 mg/mg Normal [facility] Comment on above: Performed By: #### C MP ####[facility] [address] [place], [place] [address]Dr. Rodger Munoz URINE MICROSCOPIC ONLYon BACTERIA TRACE Abnormal NONE SEEN [facility] Comment on above: Performed By: #### U MICRO, ERUR ####[facility] [address] [place], [place] [address]Dr. Rodger Munoz Bacteria identified Cx Nom (U) INDICATED Normal [facility] Comment on above: Performed By: #### U MICRO, ERUR ####[facility] [address] [place], [place] [address]Dr. Rodger Munoz CAST SEEN Abnormal NONE SEEN [facility] Comment on above: Performed By: #### U MICRO, ERUR ####[facility] [address] [place], [place] [address]Dr. Rodger Munoz Crystals LM Nom (Urine sed) NONE SEEN Normal NONE SEEN [facility] Comment on above: Performed By: #### U MICRO, ERUR ####[facility] [address] [place], [place] [address]Dr. Rodger Munoz Epithelial cells LM Ql (Urine sed) FEW Abnormal NONE SEEN /RARE [facility] Comment on above: Performed By: #### U MICRO, ERUR ####[facility] [address] [place], [place] [address]Dr. Rodger Munoz HYALINE CAST RARE Normal [facility] Comment on above: Performed By: #### U MICRO, ERUR ####[facility] [address] [place], [place] [address]Dr. Rodger Munoz MUCOUS TRACE Abnormal NONE SEEN [facility] Comment on above: Performed By: #### U MICRO, ERUR ####[facility] [address] [place], [place] [address]Dr. Rodger Munoz RBC 0-2 Normal 0-2 [facility] Comment on above: Performed By: #### U MICRO, ERUR ####[facility] [address] [place], [place] [address]Dr. Rodger Munoz WBC 50-75 Abnormal NONE SEEN [facility] Comment on above: Performed By: #### U MICRO, ERUR ####[facility] [address] [place], [place] [address]Fb. Rodger Munoz Vital Signs Date Time Vital Sign Value Performing Clinician Facility 03-20-2022 10:09-0400 Blood Pressure Location Krystyna Lue [facility] 03-20-2022 10:09-0400 Diastolic blood pressure 76 mm[Hg] Krystyna Lue [facility] ciValue 03-20-2022 10:09-0400 Heart rate 62 /min Krystyna Lue [facility] 03-20-2022 10:09-0400 Systolic blood pressure 123 mm[Hg] Krystyna Lue [facility] 02-16-2022 13:45-0400 Body height 160.02 cm Emily Andrade Other [facility] Other 02-16-2022 13:45-0400 Body mass index (BMI) [Ratio] 20.72 kg/m2 Emily Andrade Other [facility] Other 02-16-2022 13:45-0400 Body temperature 97.3 [degF] Emily Andrade Other [facility] Other 02-16-2022 13:45-0400 Body weight 53.07 kg Emily Andrade Other [facility] Other 02-16-2022 13:45-0400 Diastolic blood pressure 64 mm[Hg] Emily Andrade Other [facility] Other 02-16-2022 13:45-0400 Respiratory rate 18 /min Emily Andrade Other [facility] Other 02-16-2022 13:45-0400 SaO2% (BldA) [Mass fraction] 99 % Emily Andrade Other [facility] Other 02-16-2022 13:45-0400 Systolic blood pressure 129 mm[Hg] Emily Andrade Other [facility] Other Encounters Encounter Date Encounter Type Care Provider Facility Start: 06-07-2024 End: 06-07-2024 ambulatory BERNARD CORRALES Not Available Start: 10-08-2023 End: 10-09-2023 ambulatory Krystyna Moreno Facility:[facility] Start: 10-08-2023 End: 10-08-2023 Patient encounter procedure Krystyna Moreno [facility] Start: 03-12-2023 ambulatory Krystyna Moreno Facility:[facility] Start: 12-16-2022 End: 12-17-2022 ambulatory Krystyna MDarryl Moreno Facility:[facility] Start: 12-16-2022 End: 12-16-2022 Patient encounter procedure Krystyna Moreno [facility] Start: 10-07-2022 Encounter for genera l adult medical examination without abnormal findings DR SADIA MTZ [facility] Start: 10-02-2022 End: 10-03-[address] SADIA MTZ Facility: Start: 10-02-2022 End: 10-03-2022 Encounter for general adult medical examination without abnormal findings DR SADIA MTZ Facility:[facility] Start: 09-24-2022 End: 09-25-2022 ambulatory KRYSTYNA Andrews Facility:[facility] Start: 03-26-2022 End: 03-26-[address] SADIA MTZ Facility:[facility] Start: 03-20-2022 End: 03-20-2022 Patient encounter procedure Krystyna Moreno [facility] Start: 02-16-2022 End: 02-16-2022 ambulatory STEFANO GUILLEN [facility] Other Start: 02-16-2022 Patient encounter procedure Emily Andrade [facility] Start: 02-08-2022 End: 02-08-2022 ambulatory Sadia Mtz Other [facility] Other Start: 02-08-2022 Encounter by cr Mtz [facility] Procedures Date Procedure Procedure Detail Performing Clinician Abdominal hysterectomy Krystyna Moreno Tonsillectomy Krystyna Moreno Immunizations Immunization Date Immunization Notes Care Provider Ryan leach 09-09-2022 COVID-19, mRNA, LNP- S, bivalent booster, PF, 30 mcg/0.3 mL dose Krystyna Moreno [facility] Comment on above: Reason for Medicatio n: Prophylaxis 09-09-2022 influenza virus vaccine, unspecified formulation Krystyna Moreno [facility] Comment on above: Reason for Medicatio n: Prophylaxis 09-14-2021 SARS-CoV-2 (COVID-19 ) mRNA BNT-162b2 vax Krystyna Lue [facility] 12-14-2020 SARS-CoV-2 (COVID-19 ) Ad26 vaccine, recombinant Krystyna Lue [facility] 11-23-2020 SARS-CoV-2 (COVID-19 ) Ad26 vaccine, recombinant Krystyna Moreno [facility] Payers Date Payer Category Payer Unknown [id number] 2021 Unknown [id number] 1985 Unknown [id number] 2.16.84 [id number] 1985 Unknown [id number] 2.16.84 [id number] 1985 Unknown [id number] 2.16.84 [id number] 1985 Unknown [id number] 2.16.84 [id number] 1985 Unknown [id number] 2.16.8 [id number] 1985 Unknown [id number] 2.16.8 [id number] 1985 Unknown [id number] 2.16.8 [id number] 1985 Unknown [id number] 2.16.84 [id number] 1959 Unknown [id number] 2.16.8 [id number] 1959 Unknown [id number] Social History Date Type Detail Facility Start: 03-20-2022 Tobacco smoking status Never s moked tobacco (finding) [facility] Other Tobacco smoking status Never [facility] Sex Assigned At Female [employer] [facility] [employer] Other Clinical Notes 03-20-2022 to 12-19-2022 Note Date & Type Note Facility 12-19-2022 Note [id number]:127 [facility] 12-16-2022 Note Cystoscopy ? Voiding after the [...] you have a fever over 100 degrees. [facility] 12-16-2022 [facility] Discharg e instructions Patient Education 12/16/2022 [...] Up Care 12/03/2022 15:34:59 With:Krystyna Moreno Address: [address] [place] [address]- [phone] Business (1) [facility] Venu Keller, [address] [address]- [phone] Business (1) When: Unknown Comments:Office to schedule follow up in 3-6 months [facility] 03-20-2022 [facility] Discharg e instructions Patient Education 03/20/2022 10:54:59 Kidney Stones, [id number] Kidney Stones Kidney stones are rock-like masses [...] Follow these instructions at home: Medicines Take [id number] and prescription medicines only as told by [...] 04/28/2009 Document Revised: 03/28/2020 Document Reviewed: 03/28/2020 [employer] Patient Education 2019 [employer]. Follow Up Care 02/21/2022 14:34:05 With:Josh INFANTE, Krystyna Barillas, URL, URO Address: When:05/01/2022 Comments:will schedule MRI and KUB [facility] Evaluation + Plan note Future Appointments Appointment Date:10/02/2022 09:15:00 AM Scheduled Provider:Krystyna Moreno MD Location:[facility] Appointment Type:URO Office Visit [facility] Evaluation + Plan note Future Appointments Appointment Date:03/12/2023 10:45:00 AM Scheduled Provider:Krystyna Moreno MD Location:[facility] Appointment Type:URO Office Visit Appointment Date:10/08/2023 10:00:00 AM Scheduled Provider:Krystyna Moreno MD Location:[facility] Appointment Type:URO Office Visit [facility] Evaluation note No Information [facility] [employer] Other History general Narrative - Reported Type Medical History high cholesterol Medical History Gestational diabetes - yes Medical History chronic depression Medical History anxiety Medical History migraine headaches Surgical History hysterectomy Surgical History tonsillectomy Surgical History 3 c-sections [facility] [employer] Other Hospital course Narrative No data available for this section [facility] Hospital Discharge instructions No data available for this section [facility] progress note No data available for this section [facility] Summary Purpose Family History No Family History Records Found No data available for this section No Family History Records FoundNo Family History Records Found Advance Directives No Advanced Directives Records FoundNo Advanced Directives Records FoundNo Advanced Directives Records Found Additional Source Comments REASON FOR VISIT (unrecogniz ed section and content) Update Efraín Rayopos sible UTI INFORMATION SOURCE (unrecogn ized section and content) DATE CREATED AUTHOR 10/07/2022 [facility] DATE CREATED AUTHOR AUTHOR'S ORGANIZ ATION 10/11/2023 Elias Ko [facility] DATE CREATED AUTHOR AUTHOR'S ORGANIZ ATION 06/11/2024 [facility] [employer] [employer] Patient Care team informatio n (unrecognized section and content) Personnel Name: Sadia Mtz MD Address: Address: [address] [place] [address] Personnel Name: Sadia Mtz MD Address: Address: [address] [place] [address] FOR RECORDS PERTAINING TO PATIENTS WHO ARE [...] BE BASED ON THE PRIMARY CLINICAL RECORDS. [facility] [employer] [facility]. provides no warranty or guarantee of the accuracy or completeness of information in this document.
== END 2025-06-25 09:48 | disposition home or self-care (01) ==
LOC: US 09:47
PROVIDERS: PCP Family Medicine; Visit Provider Family Medicine
DX: R10.9 Unspecified abdominal pain (principal); N20.0 Calculus of kidney
CPT/HCPCS: 76770

== ENCOUNTER 2025-08-11 09:27 | Outpatient (OUT) | payer OTHER, SELFPAY ==
--- OUTSIDE RECORDS SUMMARY | 2024-11-10 11:00 | XMS_ITS | Continuity of Care Document ---
Author Organization [facility] Address [address] [place] [address] Phone Care Team Providers Care Diver Assistant Name Role Phone Tatiana Langford MD Unavailable Unavailabl e Allergies, Adverse Reactions, Alerts Substance Reaction Status Criticality PENICILLIN Active No Information Sulfa (Sulfonamide Antibiotics) GI issuesRash Active No Information Medications Medication Instructions Dosage Effective Dates (start - stop) Status Comments Metamucil 3.4 gram/5.4 gram oral powder - Active Miralax 17 gram/dose oral powder - Active Vitamin D3 125 mcg (5,000 unit) tablet - Active Linzess 290 mcg capsule take 1 capsule by oral route every day on an empty stomach at least 30 minutes before 1st meal of the day 290 MCG - No Longer Active Procedures Procedure Date Cytopath Cerv/vag Thin Prep; R 24 Preven Meds E&m Estab Pt; 024 Echo Transvaginal Cytopath Cerv/vag Thin Prep; R 23 Init Preven Meds E&m New Pt; Results Test Name Date and Time Measure Units Reference Range Abnormal Flag Status Comments Panel Description: Pap Test Thin Prep Final Pap Test Thin Prep 024 16:39:00 Negative for Intraepithelial Lesion or Malignancy N Final Source: VaginalLMP: Date UnknownDate Taken: 11/10/2024Specime n Type: ThinPrep VialDate Reported: 12/21/2024Clinica l Data: Cytotech: Hiram NovakADDIS howard(ASCP) Date Reported: 11/13/2024 Specimen Adequacy: Satisfactory for evaluation General Categorization: NEGATIVE FOR INTRAEPITHELIAL LESION OR MALIGNANCY This specimen has been analyzed by the reQwipPrep Imaging System, an [employer] er system which assists the lab in the screening of ThinPrep Pap Testslides. Following imaging, the slide was reviewed by a Cytotechnologista nd/or Pathologist. End of Report Technical services provided by [facility], [facility], d/b/a [address] , [place], [place] [address]WqltldFidelina Hernandez MD, Mechanical Pencils Assembler. Case reviewed and diagnosis rendered at [facility], [facility], d/b/a [address] , [place], [place] [address]DfwlvkFidelina Hernandez MD, Mechanical Pencils Assembler. CONFIDENTIAL Advance Directives Directive Yes / No Effective Date File Name No Information Encounters Encounter Description Practice Location Reason(s) For Visit Diagnoses Date Provider Providers Copied on Encounter Preven Meds E&m Estab Pt; [facility], [address], [place], [place], [id number], [place] tel:[phone] WOLFGANG Carrasco Hand Model annual exam (chief complaint) Encounter for gynecological examination (general) (routine) without abnormal findings 4 Primitivo Simpson. [address] [place] [address], [address] [place] [address] , . [phone] [facility], [address], [place], [place], [id number], [place] [phone] WOLFGANG Carrasco Antepartum Unit No Information 3 Primitivo Simpson. [address] [place] [address], [id number] , [place]. tel:[phone] Init Preven Meds E&m New Pt; [address] [facility], [address], [place], [place], [id number], [place] tel:[phone] WOLFGANG Carrasco Hand Model annual exam (chief complaint) Encounter for gynecological examination (general) (routine) without abnormal findings 3 Primitivo Simpson. [facility], [place], [place], [id number] , [place]. tel:[phone] Family History Family Member Type Diagnosis Age At Onset Father Problem Hypercholesterolemia Father Problem Diabetes mellitus Mother Problem Hypercholesterolemia Mother Problem Osteoporosis Father Problem Hypertension Payers Payer name Insurance type Covered libertarian ID Mervat jaquez(berna) Sandeep YUSUFO [id number] Social History Type Description Quantity Date Captured Comments Alcohol Use Details No Caffeine Use Details coffee 1 cup per day Tobacco Use Status Current non-smoker Smoking Status Never smoker Non-Smoking Tobacco Use Details : No Details Available : No Details Available Sex Female Vital Signs Date / Time: Height Weight BMI Pulse Rate Blood Pressure Temperature Respiratory Rate Body Surface Area Head Circumference Head Circ. Percentile Wt./[place]. Percentile BMI percentile Pulse Ox Inhaled Ox 3:00 PM 69.00 in 87.543 kg (193.00 lbs) 28.5 0 kg/m eter (2) 126/82 mm[Hg] Chief Complaint And Reason For Visit From encounter dated '11/10/2024 15:00'. annual exam (chief complaint). Description: Currently : no. : 1. Parity: Term: 1. Livin. The patient states using hysterectomy for control. Negative for: breast discharge, breast lump(s) and breast pain. Positive for: breast self exam.Postmenopausal.The patient states Patient's exercise level is moderate and frequency is 2-3 times/week. The patient does not use tobacco. The patient does not drink alcohol. Additional information: Doing well. H/o hyst for endometriosis. Dr. Jameson did robotic surgery for adhesiolysis. Was able to do colonoscopy with pediatric scope. Doign PFPT. Daughter is 7 and doing well. Reason For Referral Reason For Referral No Information Plan Of Treatment Date Type Action Status Appointment Emily Salazar BOOKED History Of Present Illness Encounter Date Complaint History Of Prese nt Illness annual exam Currently pregna nt: no. : 1. Parity: Term: 1. Livin. The patient states using hysterectomy for control. Negative for: breast discharge, breast lump(s) and breast pain. Positive for: breast self exam.Postmenopausal.The patient states Patient's exercise level is moderate and frequency is 2-3 times/week. The patient does not use tobacco. The patient does not drink alcohol. Additional information: Doing well. H/o hyst for endometriosis. Dr. Jameson did robotic surgery for adhesiolysis. Was able to do colonoscopy with pediatric scope. Doign PFPT. Daughter is 7 and doing well. annual exam Currently pregna nt: no. : 1. Parity: Term: 1. Livin. The patient states using hysterectomy for control. Negative for: breast discharge, breast lump(s) and breast pain. Positive for: breast self exam.The patient states Patient's exercise frequency is occasional. The patient does not use tobacco. The patient does not drink alcohol. Additional information: H/o severe endometriosis. Had a hyst and then Dr. Jameson did a robotic surgery to do adhesiolysis. Still has ovaries. Has been having some Right sided pain. Daughter is 6. Functional Status Date Functional Assessmen t No Information Instructions Date Instruction Additional Infor mation No Information Assessments Type Assessment Date assessment Encounter for gyneco logical examination (general) (routine) without abnormal findings impression PapMMG next yrFollow up in 1 yr or as needed Patient Care Teams Name Effective Dates (start - stop) Status Members No Information
--- OUTSIDE RECORDS SUMMARY | 2025-08-11 09:32 | XMS_ITS | CCD ---
Author Organization [facility] Care Team Providers Care Statement Processor Name Role Phone Sadia Mtz Primary Care Physician [phone] Sadia Mtz Unavailable Emily Andrade Unavailable DR [...] Primary Care Unavailable STEFANO GUILLEN Consulting Unavailable BERNARD CORRALES Attending Unavailable Krystyna Moreno Attending Unavailable Sadia Mtz Referring Unavailable Krystyna Moreno Attending Unavailable Krystyna Moreno Admitting Unavailable Allergies Allergy Classification Reported Allergen(s) Allergy Type Date of Onset Reaction(s) Facility (5 sources) Meperidine; Translations: [meperidine] Drug Allergy Unknown [facility] (5 sources) Penicillin; Translations: [penicillin] Drug Allergy Unknown (qualifier value) [facility] (2 sources) Penicillin V Drug Allergy anaphylaxis [facility] Other (1 source) Meperidine Drug Allergy [facility] (1 source) Penicillins Drug allergy (disorder) [facility] Medications Current Medications Medication Drug Class(es) Dates Sig (Normalized) Sig (Original) Fioricet (6 sources) Barbiturate, Central Nervous System Stimulant, Methylxanthine Start: 03-20-2022 Fioricet Oral, q4hr, Refill(s) 0 Start Date: 03/20/22 Status: Ordered Repeat number: 1 Start: 03-20-2022 Fioricet Oral, q4hr, Refill(s) 0 Start Date: 03/20/22 Status: Ordered take 1 capsule by mo uth every four hours Esgic 50-325-40 MG 1 capsule as needed Orally every 4 hrs Active meloxicam 15 mg oral tablet (2 sources) Nonsteroidal Anti-inflammatory Drug take 1 tablet by mouth every twenty-four hours Mobic 15 MG 1 tablet Orally Once a day Active pantoprazole 40 mg delayed release oral tablet (5 sources) Proton Pump Inhibitor Start: take 1 mg by mouth once daily Protonix 40 mg Tab-DR mg tab(s), Oral, Daily, Refills(s) 0 Start Date: 03/20/22 Status: Ordered Repeat number: 1 take 1 tablet by isabel th every twenty-four hours Protonix 40 MG 1 tablet Orally Once a day Active Protonix 40 mg Tab-DR (1 source) Start: 03-20-2022 take 1 mg by mouth once daily Protonix 40 mg Tab-DR mg tab(s), Oral, Daily, Refills(s) 0 Start Date: 03/20/22 Status: Ordered QUEtiapine 50 mg oral tablet (6 sources) Atypical Antipsychotic Start: 03-20-2022 take 1 mg by mouth twice daily SEROquel 50 mg Tab mg tab(s), Oral, BID, Refills(s) 0 Start Date: 03/20/22 Status: Ordered Repeat number: 1 take 1 tablet by isabel th every twenty-four hours SEROquel 50 MG 1 tablet at bedtime Orally Once a day only take half Active rosuvastatin calcium 5 mg oral tablet (6 sources) HMG-CoA Reductase Inhibitor Start: 03-20-2022 take 1 mg by mouth once daily Crestor 5 mg Tab mg tab(s), Oral, Daily, Refills(s) 0 Start Date: 03/20/22 Status: Ordered Repeat number: 1 take 1 tablet by isabel every twenty-four hours Crestor 5 MG 1 tablet Orally Once a day Active sertraline 100 mg oral tablet (6 sources) Serotonin Reuptake Inhibitor Start: 03-20-2022 take 1 mg by mouth once daily Zoloft 100 mg Tab mg tab(s), Oral, Daily, Refills(s) 0 Start Date: 03/20/22 Status: Ordered Repeat number: 1 take 2 tablets by mo [facility] every twenty-four hours Zoloft 100 MG [...] procedure., # 2 tab(s), Refills(s) 0, Pharmacy: [facility] 1155, 161, cm, 10/02/22 9:51:00 EST, Height/Length Dosing, 52, kg, 10/02/22 9:51:00 EST, Weight Dosing Start Date: 12/03/22 Status: Ordered Triamcinolone (4 sources) Corticosteroid Start: 02-08-2022 Kenalog -40 mg Jan, 40 mg Start: 06-28-2021 Kenalog -40 mg Jun, 40 mg Problems Active Problems Problem Classification Problem Date Documented Date Episodic/Chronic Abdominal pain (3 sources) Unspecified abdominal pain; Translations: [Abdominal pain] Onset: 02-19-2022 Episodic Calculus of urinary tract (10 sources) Kidney stone; Translations: [Calculus of kidney] Onset: 03-20-2022 Episodic Genitourinary symptoms and ill-defined conditions (15 sources) Blood in urine; Translations: [Gross hematuria] Onset: 02-16-2022 Episodic Joint disorders and dislocations; trauma-related (4 sources) Patellofemoral stress syndrome; Translations: [Patellofemoral disorders, right knee] Chronic Unclassified (2 sources) CONTACT W/AND (SUSP) EXPOS COVID-19; Translations: [CONTACT W/AND (SUSP) EXPOS COVID-19] Onset: 03-28-2022 Unclassified (3 sources) Asymptomatic microscopic hematuria 10-02-2022 Viral infection (1 source) COVID-19; Translations: [COVID-19] Onset: 03-28-2022 Past or Other Problems Problem Classification Problem Date Documented Da te Episodic/Chronic Other aftercare (1 source) 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 CPT 54150 MicroScopic Description - Adequacy - Gross Description Site ID:A color Yellow fixative Alcohol Specimen designated Urine received in alcohol preservative and labeled with the patient???s name, consists of 50ml clear yellow fluid. Electronically signed by : on: 07/18/2025 13:40:48 Performed By: #### 1 [id number] #### [facility] [address] [place] [address] Urine Cytology ([facility])on 07-13-2025 UC Method of Extraction Voided Normal [facility] Comment on above: Performed By: #### 1 [id number] #### [facility] [address] [place] [address] Number of Jars 1 Invalid Interpretation Code [facility] Comment on above: Performed By: #### 1 [id number] #### [facility] [address] [place] [address] Specimen Urine Normal [facility] Comment on above: Performed By: #### 1 [id number] #### [facility] [address] [facility] [place] [address] Type of Service Technical Only Normal [facility] Comment on above: Performed By: #### 1 [id number] #### [facility] [address] [place] [address] INSULINon 10-03-2022 Insulin 7.2 uIU/mL Normal 2.6-24.9 [facility] Comment on above: Performed By: #### I NSULIN ####[facility] [address] [place], [place] [address]Dr. Rodger Munoz CBC AUTO DIFFon 10-02-2022 BASO # 0.1 103/ul Normal 0.0-0.1 [facility] Comment on above: Performed By: #### C BC ####[facility] [address] [place], [place] [address]Dr. Rodger Munoz Basophils/100 WBC (Bld) 1.1 % Normal 0.2-2.0 [facility] Comment on above: Performed By: #### C BC ####[facility] [address] [place], [place] [address]DrDarryl Munoz EO # 0.1 103/ul Normal 0.0-0.7 [facility] Comment on above: Performed By: #### C BC ####[facility] [address] [place], [place] [address]Dr. Rodger Munoz Eosinophils/100 WBC (Bld) 1.7 % Normal 0.9-7.0 [facility] Comment on above: Performed By: #### C BC ####[facility] [address] [place], [place] [address]DrDarryl Munoz Erythrocyte distribution width (RBC) [Ratio] 12.3 % Normal 11.0-15.0 [facility] Comment on above: Performed By: #### C BC ####[facility] [address] [place], [place] [address]DrDarryl Munoz Hematocrit (Bld) [Volume fraction] 41.8 % Normal 36.0-48.0 [facility] Comment on above: Performed By: #### C BC ####[facility] [address] [address]Dr. Rodger Munoz Hemoglobin (Bld) [Mass/Vol] 14.1 g/dL Normal 12.0-16.0 [facility] Comment on above: Performed By: #### C BC ####[facility] [address] [address]Dr. Rodger Munoz IG # 0.01 10e3/ul Normal 0.00-0.03 [facility] Comment on above: Performed By: #### C BC ####[facility] [address] [place], [place] [address]Dr. Rodger Munoz IG % 0.2 % Normal 0.0-0.5 [facility] Comment on above: Performed By: #### C BC ####[facility] [address] [place], [place] [address]Dr. Rodger Alexander LYMPH # 1.9 103/ul Normal 1.2-3.8 [facility] Comment on above: Performed By: #### C BC ####[facility] [address] [place], [place] [address]Dr. Rodger Alexander Lymphocytes/100 WBC (Bld) 36.3 % Normal 20.5-60.0 [facility] Comment on above: Performed By: #### C BC ####[facility] [address] [address]Dr. Farzanehailyn Munoz MANUAL DIFF REQ NO Normal [facility] Comment on above: Performed By: #### C BC ####[facility] [address] [place] [id number]. Rodger Alexander MCH (RBC) [Entitic mass] 29.0 pg Normal 26.7-34.0 [facility] Comment on above: Performed By: #### C BC ####[facility] [address] [place] [id number]. Farzanehailyn Munoz MCHC (RBC) [Mass/Vol] 33.7 g/dL Normal 29.9-35.2 [facility] Comment on above: Performed By: #### C BC ####[facility] [address] [place] [address]Dr. Rodger Alexander MCV (RBC) [Entitic vol] 85.8 fL Normal 81.0-99.0 [facility] Comment on above: Performed By: #### C BC ####[facility] [address] [place], [place] [address]Dr. Rodger Alexander MONO # 0.3 103/ul Normal 0.3-0.8 [facility] Comment on above: Performed By: #### C BC ####[facility] [address] [place], [place] [address]Dr. Rodger Munoz Monocytes/100 WBC (Bld) 6.1 % Normal 1.7-12.0 [facility] Comment on above: Performed By: #### C BC ####[facility] [address] [place], [place] [address]Dr. Farzanehailyn Munoz NEUT # 2.9 103/ul Normal 1.4-6.5 [facility] Comment on above: Performed By: #### C BC ####[facility] [address] [place], [place] [address]Dr. Farzanehailyn Munoz Neutrophils/100 WBC (Bld) 54.6 % Normal 43.0-75.0 [facility] Comment on above: Performed By: #### C BC ####[facility] [address] [place], [place] [address]Dr. Rodger Munoz Platelet mean volume (Bld) [Entitic vol] 10.4 fL Normal 9.5-13.5 [facility] Comment on above: Performed By: #### C BC ####[facility] [address] [place], [place] [address]Dr. Rodger Munoz PLT 205 103/ul Normal 150-450 [facility] Comment on above: Performed By: #### C BC ####[facility] [address] [place], [place] [address]Dr. Rodger Munoz RBC 4.87 106/ul Normal 4.20-5.40 [facility] Comment on above: Performed By: #### C BC ####[facility] [address] [place] [address]Dr. Rodger Munoz WBC 5.2 103/ul Normal 4.0-11.0 [facility] Comment on above: Performed By: #### C BC ####[facility] [address] [place] [id number]. Rodger Munoz FREE THYROXINE INDEX T7on FTI 2.04 Normal 1.30-4.50 [facility] Comment on above: Performed By: #### T 7, LIPID, TSH, CMP #### [facility] [address] [address] [address] Rodger Munoz T3U 34.0 % Normal 30.0-39.0 [facility] Comment on above: Performed By: #### T 7, LIPID, TSH, CMP #### [facility] [address] [address] [address] Rodger Munoz T4 [Mass/Vol] 6.00 ug/dL Normal 4.80-13.90 [facility] Comment on above: Performed By: #### T 7, LIPID, TSH, CMP #### [facility] [address] [address] [address] Rodger Munoz GLYCOHEMOGLOBIN A1Con 2021 ADA RECOMMENDATION SEE BELOW Normal [facility] Comment on above: Result Comment: ADA RECOMMENDED LIMIT 4.0 - 6.0 ADA THERAPEUTIC TARGET < 7.0 ACTION SUGGESTED > 7.0 Performed By: #### A 1C #### [facility] [address] [place] [address] Dr. Rodger Munoz Glucose [Mass/Vol] 105 mg/dL Normal [facility] Comment on above: Performed By: #### A 1C #### [facility] [address] [place] [address] Dr. Rodger Munoz HbA1c (Bld) [Mass fraction] 5.3 % Normal 4.5-6.2 [facility] Comment on above: Performed By: #### A 1C #### [facility] [address] [address] [address] Rodger Munoz IRONon 10-02-2022 Iron [Mass/Vol] 75.0 ug/dL Normal 50.0-170.0 [facility] Comment on above: Performed By: #### I RUDDY ####[facility] [address] [address]Dr. Rodger Munoz LIPID PROFILEon 10-02-2022 CHOL-HDL RATIO NORM SEE BELOW Normal [facility] Comment on above: Result Comment: 3.3 - 4.4 LOW RISK 4.4 - 7.1 AVERAGE RISK 7.1 - 11.0 MODERATE RISK >11.0 HIGH RISK Performed By: #### T 7, LIPID, TSH, CMP #### [facility] [address] [address] [address] Rodger Munoz Cholesterol [Mass/Vol] 216 mg/dL Critically high <=200 [facility] Comment on above: Performed By: #### T 7, LIPID, TSH, CMP #### [facility] [address] [address] [address] Rodger Munoz Cholesterol in HDL [Mass/Vol] 84 mg/dL Critically high 40-60 [facility] Comment on above: Performed By: #### T 7, LIPID, TSH, CMP #### [facility] [address] [address] [address] Rodger Munoz Cholesterol in LDL [Mass/Vol] 119.6 mg/dL Normal [facility] Comment on above: Performed By: #### T 7, LIPID, TSH, CMP #### [facility] [address] [address] [address] Rodger Munoz Cholesterol.total/Ch olesterol in HDL [Mass ratio] 2.6 {ratio} Normal [facility] Comment on above: Performed By: #### T 7, LIPID, TSH, CMP #### [facility] [address] [address] [address] Rodger Munoz HDL NORMAL > or = 60 mg/dl - LOW CARDIOVASCULAR RISK <40 mg/dl - HIGH CARDIOVASCULAR RISK Normal [facility] Comment on above: Performed By: #### T 7, LIPID, TSH, CMP #### [facility] [address] [address] [address] Rodger Munoz LDL CALC NORMAL SEE BELOW Normal [facility] Comment on above: Result Comment: <100 mg/dl OPTIMAL 100 - 129 mg/dl NEAR OR ABOVE OPTIMAL 130 - 159 mg/dl BORDERLINE HIGH 160 - 189 mg/dl HIGH >190 mg/dl VERY HIGH Performed By: #### T 7, LIPID, TSH, CMP #### [facility] [address] [address] [address] Rodger Munoz Triglyceride [Mass/Vol] 62 mg/dL Normal <=150 [facility] Comment on above: Performed By: #### T 7, LIPID, TSH, CMP #### [facility] [address] [place] [address] Dr. Rodger Munoz VLDL CALC 12.4 mg/dL Normal [facility] Comment on above: Performed By: #### T 7, LIPID, TSH, CMP #### [facility] [address] [place] [address] Dr. Rodger Munoz PROF 14(COMP METB)on 022 Albumin [Mass/Vol] 4.1 g/dL Normal 3.4-5.0 [facility] Comment on above: Performed By: #### T 7, LIPID, TSH, CMP #### [facility] [address] [place] [address] Dr. Rodger Munoz Albumin/Globulin [Mass ratio] 1.2 {ratio} Normal [facility] Comment on above: Performed By: #### T 7, LIPID, TSH, CMP #### [facility] [address] [place] [address] Dr. Rodger Munoz ALP [Catalytic activity/Vol] 108 U/L Normal 46-116 [facility] Comment on above: Performed By: #### T 7, LIPID, TSH, CMP #### [facility] [address] [place] [address] Dr. Rodger Munoz ALT [Catalytic activity/Vol] 15 U/L Normal 14-59 [facility] Comment on above: Performed By: #### T 7, LIPID, TSH, CMP #### [facility] [address] [address] [address] Rodger Munoz Anion gap [Moles/Vol] 6.5 mmol/L Normal [facility] Comment on above: Performed By: #### T 7, LIPID, TSH, CMP #### [facility] [address] [address] [address] Rodger Munoz AST [Catalytic activity/Vol] 11 U/L Critically low 15-37 [facility] Comment on above: Performed By: #### T 7, LIPID, TSH, CMP #### [facility] [address] [address] [address] Rodger Munoz Bilirubin [Mass/Vol] 0.4 mg/dL Normal 0.2-1.0 [facility] Comment on above: Performed By: #### T 7, LIPID, TSH, CMP #### [facility] [address] [address] [address] Rodger Munoz Calcium [Mass/Vol] 9.1 mg/dL Normal 8.5-10.1 [facility] Comment on above: Performed By: #### T 7, LIPID, TSH, CMP #### [facility] [address] [address] [address] Rodger Munoz Chloride [Moles/Vol] 101 mmol/L Normal 98-107 [facility] Comment on above: Performed By: #### T 7, LIPID, TSH, CMP #### [facility] [address] [address] [address] Rodger Munoz CO2 [Moles/Vol] 33.6 mmol/L Critically high 21.0-32.0 [facility] Comment on above: Performed By: #### T 7, LIPID, TSH, CMP #### [facility] [address] [address] [address] Rodger Munoz Creatinine [Mass/Vol] 0.65 mg/dL Normal 0.55-1.02 [facility] Comment on above: Performed By: #### T 7, LIPID, TSH, CMP #### [facility] [address] [address] [address] Rodger Munoz EGFR-AF FIJIAN >60 Normal >=60 [facility] Comment on above: Performed By: #### T 7, LIPID, TSH, CMP #### [facility] [address] [address] [address] Rodger Munoz EGFR-NON AF FIJIAN >60 Normal >=60 [facility] Comment on above: Performed By: #### T 7, LIPID, TSH, CMP #### [facility] [address] [address] [address] Rodger Munoz Globulin (S) [Mass/Vol] 3.3 g/dL Normal [facility] Comment on above: Performed By: #### T 7, LIPID, TSH, CMP #### [facility] [address] [place] [address] Dr. Rodger Munoz Glucose [Mass/Vol] 94 mg/dL Normal 74-106 [facility] Comment on above: Performed By: #### T 7, LIPID, TSH, CMP #### [facility] [address] [place] [address] Dr. Rodger Munoz Potassium [Moles/Vol] 4.1 mmol/L Normal 3.5-5.1 [facility] Comment on above: Performed By: #### T 7, LIPID, TSH, CMP #### [facility] [address] [place] [address] Dr. Rodger Munoz Protein [Mass/Vol] 7.4 g/dL Normal 6.4-8.2 [facility] Comment on above: Performed By: #### T 7, LIPID, TSH, CMP #### [facility] [address] [place] [address] Dr. Rodger Munoz Sodium [Moles/Vol] 137 mmol/L Normal 136-145 [facility] Comment on above: Performed By: #### T 7, LIPID, TSH, CMP #### [facility] [address] [place] [address] Dr. Rodger Munoz Urea nitrogen [Mass/Vol] 16.0 mg/dL Normal 7.0-18.0 [facility] Comment on above: Performed By: #### T 7, LIPID, TSH, CMP #### [facility] [address] [address] [address] Rodger Munoz Urea nitrogen/Creatinine [Mass ratio] 24.6 mg/mg Normal [facility] Comment on above: Performed By: #### T 7, LIPID, TSH, CMP #### [facility] [address] [address] [address] Rodger Munoz TSHon 10-02-2022 TSH 1.112 uIU/mL Normal 0.358-3.740 [facility] Comment on above: Performed By: #### T 7, LIPID, TSH, CMP #### [facility] [address] [place], [place] [address] Dr. Rodger Munoz US KIDNEYSon 09-24-2022 US [...] by: TARA NAVA Date: 2022-09-24 12:17 Normal [facility] XR KUB 1 VIEWon 09-24-2022 XR KUB [...] by: TARA NAVA Date: 2022-09-24 10:50 Normal [facility] Covid-19 PCR (CVDTB)on SARS-CoV-2 (COVID-19) RNA EVY+probe Ql (Unsp spec) Detected Critically abnormal NOT DETECTED [facility] Comment on above: Result Comment: This test is not yet approved or cleared by the [place] FDA. When there are no FDA-approved or cleared tests available, and other criteria are met, FDA can make tests available under an emergency access mechanism called an Emergency Use Authorization (EUA). The EUA for this test is supported by the Contract Accountant of Health and Human Service's (HHS's) declaration [...] longer be used). Performed By: #### C VDTBH #### [facility] [address] [place] [address] Dr. Rodger Munoz CBC AUTO DIFFon 02-16-2022 BASO # 0.1 103/ul Normal 0.0-0.1 [facility] Comment on above: Performed By: #### C BC #### [facility] [address] [place] [address] Dr. Rodger Munoz Basophils/100 WBC (Bld) 0.5 % Normal 0.2-2.0 [facility] Comment on above: Performed By: #### C BC #### [facility] [address] [place] [address] Dr. Rodger Munoz EO # 0.2 103/ul Normal 0.0-0.7 [facility] Comment on above: Performed By: #### C BC #### [facility] [address] [place] [address] Dr. Rodger Munoz Eosinophils/100 WBC (Bld) 1.1 % Normal 0.9-7.0 [facility] Comment on above: Performed By: #### C BC #### [facility] [address] [place] [address] Dr. Rodger Munoz Erythrocyte distribution width (RBC) [Ratio] 13.1 % Normal 11.0-15.0 [facility] Comment on above: Performed By: #### C BC #### [facility] [address] [place] [address] Dr. Rodger Munoz Hematocrit (Bld) [Volume fraction] 45.7 % Normal 36.0-48.0 [facility] Comment on above: Performed By: #### C BC #### [facility] [address] [place] [address] Dr. Rodger Munoz Hemoglobin (Bld) [Mass/Vol] 15.3 g/dL Normal 12.0-16.0 [facility] Comment on above: Performed By: #### C BC #### [facility] [address] [place] [address] Dr. Rodger Munoz IG # 0.07 10e3/ul Critically high 0.00-0.03 [facility] Comment on above: Performed By: #### C BC #### [facility] [address] [place] [address] Dr. Rodger Munoz IG % 0.5 % Normal 0.0-0.5 [facility] Comment on above: Performed By: #### C BC #### [facility] [address] [place] [address] Dr. Rodger Munoz LYMPH # 2.4 103/ul Normal 1.2-3.8 [facility] Comment on above: Performed By: #### C BC #### [facility] [address] [place] [address] Dr. Rodger Munoz Lymphocytes/100 WBC (Bld) 17.6 % Critically low 20.5-60.0 [facility] Comment on above: Performed By: #### C BC #### [facility] [address] [place] [address] Dr. Rodger Munoz MANUAL DIFF REQ NO Normal [facility] Comment on above: Performed By: #### C BC #### [facility] [address] [place] [address] Dr. Rodger Munoz MCH (RBC) [Entitic mass] 29.0 pg Normal 26.7-34.0 [facility] Comment on above: Performed By: #### C BC #### [facility] [address] [place] [address] Dr. Rodger Munoz MCHC (RBC) [Mass/Vol] 33.5 g/dL Normal 29.9-35.2 [facility] Comment on above: Performed By: #### C BC #### [facility] [address] [place] [address] Dr. Rodger Munoz MCV (RBC) [Entitic vol] 86.7 fL Normal 81.0-99.0 [facility] Comment on above: Performed By: #### C BC #### [facility] [address] [place] [address] Dr. Rodger Munoz MONO # 1.0 103/ul Critically high 0.3-0.8 The [facility] Comment on above: Performed By: #### C BC #### [facility] [address] [place] [address] Dr. Rodger Munoz Monocytes/100 WBC (Bld) 7.2 % Normal 1.7-12.0 [facility] Comment on above: Performed By: #### C BC #### [facility] [address] [place] [address] Dr. Rodger Munoz NEUT # 10.0 103/ul Critically high 1.4-6.5 The [facility] Comment on above: Performed By: #### C BC #### [facility] [address] [place] [address] Dr. Rodger Munoz Neutrophils/100 WBC (Bld) 73.1 % Normal 43.0-75.0 [facility] Comment on above: Performed By: #### C BC #### [facility] [address] [place] [address] Dr. Rodger Muonz Platelet mean volume (Bld) [Entitic vol] 10.2 fL Normal 9.5-13.5 [facility] Comment on above: Performed By: #### C BC #### [facility] [address] [address] [address] Rodger Munoz PLT 277 103/ul Normal 150-450 [facility] Comment on above: Performed By: #### C BC #### [facility] [address] [address] [address] Rodger Munoz RBC 5.27 106/ul Normal 4.20-5.40 [facility] Comment on above: Performed By: #### C BC #### [facility] [id number] Rodger Munoz WBC 13.7 103/ul Critically high 4.0-11.0 [facility] Comment on above: Performed By: #### C BC #### [facility] [address] [place] [address] ABD/PELVIS WO CONon [...] JUANITO VARGAS Date: 2022-02-16 14:49 Normal [facility] CULTURE URINEon 02-16-2022 CULTURE URINE Culture Observations: LIGHT GROWTH OF MIXED GENITAL JED. NO POTENTIAL PATHOGENS SEEN. Normal [facility] Comment on above: Performed By: #### U RCX #### [facility] [address] [address] [address] Rodger Munoz ER URINE PROFILEon 2 Bilirubin Ql (U) Negative Normal NEGATIVE The [facility] Comment on above: Performed By: #### U MICRO, ERUR ####[facility] [address] [address]Dr. Rodger Munoz Clarity (U) CLEAR Normal CLEAR [facility] Comment on above: Performed By: #### U MICRO, ERUR ####[facility] [address] [address]Dr. Rodegr Munoz Color (U) LT. YELLOW Normal YELLOW [facility] Comment on above: Performed By: #### U MICRO, ERUR ####[facility] [address] [address]Dr. Rodger BOYDD A micrscopic examination will be performed if indicated. Normal [facility] Comment on above: Performed By: #### U MICRO, ERUR ####[facility] [address] [address]Dr. Rodger Munoz Glucose Ql (U) Negative Normal NEGATIVE The [facility] Comment on above: Performed By: #### U MICRO, ERUR ####[facility] [address] [address]Dr. Rodger Munoz Hemoglobin Ql (U) LARGE Abnormal NEGATIVE The [facility] Comment on above: Performed By: #### U MICRO, ERUR ####[facility] [address] [address]Dr. Rodger Muonz Ketones Ql (U) Negative Normal NEGATIVE The [facility] Comment on above: Performed By: #### U MICRO, ERUR ####[facility] [address] [address]Dr. Rodger Munoz LEUKOCYTES LARGE Abnormal NEGATIVE [facility] Comment on above: Performed By: #### U MICRO, ERUR ####[facility] [address] [place], [place] [address]Dr. Rodger Munoz Nitrite Ql (U) Negative Normal NEGATIVE The [facility] Comment on above: Performed By: #### U MICRO, ERUR ####[facility] [address] [address]Dr. Rodger Munoz pH (U) 7.0 [pH] Normal 5-9 [facility] Comment on above: Performed By: #### U MICRO, ERUR ####[facility] [address] [place], [place] [address]Dr. Rodger Munoz SPEC GRAVITY <=1.005 Abnormal 1.005-<=1.025 [facility] Comment on above: Performed By: #### U MICRO, ERUR ####[facility] [address] [place], [place] [address]Dr. Rodger Munoz UA PROTEIN TRACE Normal NEGATIVE/ TRACE [facility] Comment on above: Performed By: #### U MICRO, ERUR ####[facility] [address] [place], [place] [address]Dr. Rodger Munoz UR MICRO IND INDICATED Normal [facility] Comment on above: Performed By: #### U MICRO, ERUR ####[facility] [address] [place], [place] [address]Dr. Rodger Munoz Urobilinogen Qn (U) 0.2 {Meghan'U}/dL Normal 0.2 - 1. 0 [facility] Comment on above: Performed By: #### U MICRO, ERUR ####[facility] [address] [place], [place] [address]Dr. Rodger Munoz PROF 14(COMP METB)on 022 Albumin [Mass/Vol] 4.4 g/dL Normal 3.4-5.0 [facility] Comment on above: Performed By: #### C MP ####[facility] [address] [place], [place] [address]Dr. Rodger Munoz Albumin/Globulin [Mass ratio] 1.3 {ratio} Normal [facility] Comment on above: Performed By: #### C MP ####[facility] [address] [place], [place] [address]Dr. Rodger Munoz ALP [Catalytic activity/Vol] 106 U/L Normal 46-116 [facility] Comment on above: Performed By: #### C MP ####[facility] [address] [address]Dr. Rodger Munoz ALT [Catalytic activity/Vol] 15 U/L Normal 14-59 [facility] Comment on above: Performed By: #### C MP ####[facility] [address] [place], [place] [address]Dr. Rodger Munoz Anion gap [Moles/Vol] 10.4 mmol/L Normal [facility] Comment on above: Performed By: #### C MP ####[facility] [address] [place], [place] [address]Dr. Rodger Munoz AST [Catalytic activity/Vol] 19 U/L Normal 15-37 [facility] Comment on above: Performed By: #### C MP ####[facility] [address] [place], [place] [address]Dr. Rodger Alexander Bilirubin [Mass/Vol] 0.8 mg/dL Normal 0.2-1.3 [facility] Comment on above: Performed By: #### C MP ####[facility] [address] [place], [place] [address]Dr. Rodger Alexander Calcium [Mass/Vol] 9.3 mg/dL Normal 8.5-10.1 [facility] Comment on above: Performed By: #### C MP ####[facility] [address] [place], [place] [address]Dr. Rodger Alexander Chloride [Moles/Vol] 102 mmol/L Normal 98-107 [facility] Comment on above: Performed By: #### C MP ####[facility] [address] [place], [place] [address]Dr. Rodger Alexander CO2 [Moles/Vol] 29.5 mmol/L Normal 22.0-30.0 [facility] Comment on above: Performed By: #### C MP ####[facility] [address] [place], [place] [address]Dr. Yiailyn Munoz Creatinine [Mass/Vol] 0.62 mg/dL Normal 0.52-1.04 [facility] Comment on above: Performed By: #### C MP ####[facility] [address] [address]Dr. Rodger Munoz EGFR-AF FIJIAN >60 Normal >=60 [facility] Comment on above: Performed By: #### C MP ####[facility] [address] [address]Dr. Rodger Alexander EGFR-NON AF FIJIAN >60 Normal >=60 [facility] Comment on above: Performed By: #### C MP ####[facility] [address] [address]Dr. Rodger Munoz Globulin (S) [Mass/Vol] 3.5 g/dL Normal [facility] Comment on above: Performed By: #### C MP ####[facility] [address] [place], [place] [address]Dr. Rodger Munoz Glucose [Mass/Vol] 81 mg/dL Normal 74-106 [facility] Comment on above: Performed By: #### C MP ####[facility] X[address] [place], [place] [address]Dr. Rodger Alexander Potassium [Moles/Vol] 3.9 mmol/L Normal 3.4-5.0 [facility] Comment on above: Performed By: #### C MP ####[facility] [address] [place], [place] [address]Dr. Rodger Alexander Protein [Mass/Vol] 7.9 g/dL Normal 6.1-8.2 [facility] Comment on above: Performed By: #### C MP ####[facility] [address] [address]Dr. Rodger Munoz Sodium [Moles/Vol] 138 mmol/L Normal 137-145 [facility] Comment on above: Performed By: #### C MP ####[facility] [address] [place], [place] [address]Dr. Rodger Alexander Urea nitrogen [Mass/Vol] 13.0 mg/dL Normal 7.0-18.0 [facility] Comment on above: Performed By: #### C MP ####[facility] [address] [address]Dr. Rodger Munoz Urea nitrogen/Creatinine [Mass ratio] 21.0 mg/mg Normal [facility] Comment on above: Performed By: #### C MP ####[facility] [address] [place], [place] [address]Dr. Rodger Munoz URINE MICROSCOPIC ONLYon BACTERIA TRACE Abnormal NONE SEEN [facility] Comment on above: Performed By: #### U MICRO, ERUR ####[facility] [address] [place], [place] [address]Dr. Rodger Munoz Bacteria identified Cx Nom (U) INDICATED Normal [facility] Comment on above: Performed By: #### U MICRO, ERUR ####[facility] [address] [place], [place] [address]Dr. Rodger Munoz CAST SEEN Abnormal NONE SEEN [facility] Comment on above: Performed By: #### U MICRO, ERUR ####[facility] [address] [place], [place] [address]Dr. Rodger Munoz Crystals LM Nom (Urine sed) NONE SEEN Normal NONE SEEN [facility] Comment on above: Performed By: #### U MICRO, ERUR ####[facility] [address] [place], [place] [address]Dr. Rodger Munoz Epithelial cells LM Ql (Urine sed) FEW Abnormal NONE SEEN /RARE [facility] Comment on above: Performed By: #### U MICRO, ERUR ####[facility] [address] [place], [place] [address]Dr. Rodger Munoz HYALINE CAST RARE Normal [facility] Comment on above: Performed By: #### U MICRO, ERUR ####[facility] [address] [place], [place] [address]Dr. Rodger Munoz MUCOUS TRACE Abnormal NONE SEEN [facility] Comment on above: Performed By: #### U MICRO, ERUR ####[facility] [address] [place], [place] [address]Dr. Rodger Munoz RBC 0-2 Normal 0-2 [facility] Comment on above: Performed By: #### U MICRO, ERUR ####[facility] [address] [place], [place] [address]Bu. Rodger Munoz WBC 50-75 Abnormal NONE SEEN [facility] Comment on above: Performed By: #### U MICRO, ERUR ####[facility] [address] [place], [place] [address]Gy. Rodger Munoz Vital Signs Date Time Vital Sign Value Performing Clinician Facility 03-20-2022 10:09-0400 Blood Pressure Location Krystyna Lue [facility] 03-20-2022 10:09-0400 Diastolic blood pressure 76 mm[Hg] Krystyna Lue [facility] 03-20-2022 10:09-0400 Heart rate 62 /min Krystyna Lue [facility] 03-20-2022 10:09-0400 Systolic blood pressure 123 mm[Hg] Krystyna Lue [facility] 02-16-2022 13:45-0400 Body height 160.02 cm Emily Andrade Other [facility] Other 02-16-2022 13:45-0400 Body mass index (BMI) [Ratio] 20.72 kg/m2 Emily Andrade Other [facility] Other 02-16-2022 13:45-0400 Body temperature 97.3 [degF] Emily Andrade Other [facility] Other 02-16-2022 13:45-0400 Body weight 53.07 kg Emily Andrade Other [facility] Other 02-16-2022 13:45-0400 Diastolic blood pressure 64 mm[Hg] Emily Andrade Other [facility] Other 02-16-2022 13:45-0400 Respiratory rate 18 /min Emily Andrade Other [facility] Other 02-16-2022 13:45-0400 SaO2% (BldA) [Mass fraction] 99 % Emily Andrade Other [facility] Other 02-16-2022 13:45-0400 Systolic blood pressure 129 mm[Hg] Emily Culverault Other [facility] Other Encounters Encounter Date Encounter Type Care Provider Facility Start: 07-13-2025 End: 07-13-2025 ambulatory Krystyna Moreno Facility:[facility] Start: 07-13-2025 End: 07-13-2025 ambulatory Krystyna Moreno Facility:[facility] Start: 07-13-2025 End: 07-13-2025 Patient encounter procedure Krystyna Moreno [facility] Start: 06-07-2024 End: 06-07-2024 ambulatory BERNARD SAVANNA Not Available Start: 10-08-2023 End: 10-08-2023 Patient encounter procedure Krystyna Moreno [facility] Start: 12-16-2022 End: 12-16-2022 Patient encounter procedure Krystyna Moreno [facility] Start: 10-07-2022 Encounter for genera l adult medical examination without abnormal findings DR SADIA MTZ [facility] Start: 10-02-2022 End: 10-03-[address] SADIA MTZ Facility:[facility] Start: 10-02-2022 End: 10-03-2022 Encounter for general adult medical examination without abnormal findings DR SADIA MTZ Facility:[facility] Start: 09-24-2022 End: 09-25-2022 ambulatory KRYSTYNA Andrews Facility:[facility] Start: 03-26-2022 End: 03-26-[address] SADIA MTZ Facility:[facility] Start: 03-20-2022 End: 03-20-2022 Patient encounter procedure Krystyna Moreno [facility] Start: 02-16-2022 End: 02-16-2022 ambulatory STEFANO GUILLEN [facility] Other Start: 02-16-2022 Patient encounter procedure Emily Lupe [facility] Start: 02-08-2022 End: 02-08-2022 ambulatory Sadia Mtz Other [facility] Other Start: 02-08-2022 Encounter by cr Mtz [facility] Procedures Date Procedure Procedure Detail Performing Clinician Abdominal hysterectomy Krystyna Moreno Tonsillectomy Krystyna Moreno Immunizations Immunization Date Immunization Notes Care Provider Fa cility 09-09-2022 COVID-19, mRNA, LNP- S, bivalent booster, PF, 30 mcg/0.3 mL dose Krystyna Moreno [facility] Comment on above: Reason for Medicatio n: Prophylaxis 09-09-2022 influenza virus vaccine, unspecified formulation Krystyna Moreno [facility] Comment on above: Reason for Medicatio n: Prophylaxis 09-14-2021 SARS-CoV-2 (COVID-19 ) mRNA BNT-162b2 vax Krystyna Lue [facility] 12-14-2020 SARS-CoV-2 (COVID-19 ) Ad26 vaccine, recombinant Krystyna Lue [facility] 11-23-2020 SARS-CoV-2 (COVID-19 ) Ad26 vaccine, recombinant Krystyna Lue [facility] Payers Date Payer Category Payer Private Health Insurance [id number] 2023 Unknown [id number] 1985 Unknown [id number] 2.16.84 [id number] 1985 Unknown [id number] 2.16.84 [id number] 1985 Unknown [id number] 2.16.84 [id number] 1985 Unknown [id number] 2.16.84 [id number] 1985 Unknown [id number] 2.16.84 [id number] 1985 Unknown [id number] 2.16.8 [id number] 1985 Unknown [id number] 2.16.8 [id number] 1959 Unknown [id number] 2.16.8 [id number] 1959 Unknown [id number] Private Health Insurance [id number] Social History Date Type Detail Facility Start: 03-20-2022 End: 07-13-2025 Tobacco smoking status Never smoked tobacco (finding) [facility] Other Tobacco smoking status Never [facility] [email or web address] Sex Assigned At Female [facility] Other Sexual Orientation [facility] [place] Start: 02-12-2019 Sex Female (finding) [facility] Clinical Notes 03-20-2022 to 07-13-2025 Note Date & Type Note Facility 07-13-2025 Hospital Discharge instructions Patient Education 07/13/2025 09:40:17 Kidney Stones, Zkia-gp-Huay Kidney Stones Kidney stones are rock-like masses [...] pee. The stone usually leaves your body through your pee. A doctor may need to take out the stone. What are the causes? Kidney stones may be caused by: Too much calcium in the body. This may be caused by too much parathyroid hormone in the blood. Uric acid crystals in the bladder. The body makes uric acid when you eat certain foods. Narrowing of one or both of the ureters. A kidney blockage that you were born with. Past surgery on the kidney or the ureters. What increases the risk? You are more likely to develop this condition if: You have had a kidney stone in the past. Other people in your family have had kidney stones. You do not drink enough water. You eat a diet that is high in protein, salt (sodium), or sugar. You are very overweight (obese). What are the signs or symptoms? Symptoms of a kidney stone may include: Pain in the side of the belly, right below the ribs. Pain usually spreads to the groin. Needing to pee often or right away. Pain when peeing. Blood in your pee. Feeling like you may vomit (nauseous). Vomiting. Fever and chills. How is this treated? Treatment depends on the size, location, and makeup of the kidney stones. The stones will often pass out of the body when you pee. You may need to: Drink more fluid to help pass the stone. ?In some cases, you may be given fluids through an IV tube at the hospital. Take medicine for pain. Change your diet to help keep kidney stones from coming back. Sometimes, you may need: A procedure to break up kidney stones using a beam of light (laser) or shock waves. Surgery to remove the kidney stones. Follow these instructions at home: Medicines Take ekfu-wbs-pvvzdlg and prescription medicines only as told by your doctor. Ask your doctor if the medicine prescribed to you requires you to avoid driving or using machinery. Eating and drinking Drink enough fluid to keep your pee pale yellow. ?You may be told to drink at least 8 10 glasses of water each day. This will help you pass the stone. If told by your doctor, change your diet. You may be told to: ?Limit how much salt you eat. ?Eat more fruits and vegetables. ?Limit how much meat, poultry, fish, and eggs you eat. Follow instructions from your doctor about what you may eat and drink. General instructions Collect pee samples as told by your doctor. You may need to collect a pee sample: ?24 hours after a stone comes out. ?8 12 weeks after a stone comes out, and every 6 12 months after that. Strain your pee every time you pee. Use the strainer that your doctor recommends. Do not throw out the stone. Keep it so that it can be tested by your doctor. Keep all follow-up visits. You may need X-rays and ultrasounds to make sure the stone has come out. How is this prevented? To prevent another kidney stone: Drink enough fluid to keep your pee pale yellow. This is the best way to prevent kidney stones. Eat healthy foods. Avoid certain foods as told by your doctor. You may be told to eat less protein. Stay at a healthy weight. Where to find more information National Kidney Foundation (NKF): kidney.org [employer] (UCF): urologyhealth.org Contact a doctor if: You have pain that gets worse or does not get better with medicine. Get help right away if: You have a fever or chills. You get very bad pain. You get new pain in your belly. You faint. You cannot pee. This information is not intended to replace advice given to you by your health care provider. Make sure you discuss any questions you have with your health care provider. Document Revised: 2023 Document Reviewed: 2023 [employer] Patient Education 2023 [employer]. 07/13/2025 09:40:15 Hematuria, Adult Hematuria, Adult Hematuria is blood in the urine. Blood may be visible in the urine, or it may be identified with a test. This condition can be caused by infections of the bladder, urethra, kidney, or prostate. Other possible causes include: Kidney stones. Cancer of the urinary tract. Too much calcium in the urine. Conditions that are passed from parent to child (inherited conditions). Exercise that requires a lot of energy. Infections can usually be treated with medicine, and a kidney stone usually will pass through your urine. If neither of these is the cause of your hematuria, more tests may be needed to identify the cause of your symptoms. It is very important to tell your health care provider about any blood in your urine, even if it is painless or the blood stops without treatment. Blood in the urine, when it happens and then stops and then happens again, can be a symptom of a very serious condition, including cancer. There is no pain in the initial stages of many urinary cancers. Follow these instructions at home: Medicines Take jylk-ilt-fjdzyzm and prescription medicines only as told by your health care provider. If you were prescribed an antibiotic medicine, take it as told by your health care provider. Do not stop taking the antibiotic even if you start to feel better. Eating and drinking Drink enough fluid to keep your urine pale yellow. It is recommended that you drink 3 4 quarts (2.8 3.8 L) a day. If you have been diagnosed with an infection, drinking cranberry juice in addition to large amounts of water is recommended. Avoid caffeine, tea, and carbonated beverages. These tend to irritate the bladder. Avoid alcohol because it may irritate the prostate (in males). General instructions If you have been diagnosed with a kidney stone, follow your health care provider's instructions about straining your urine to catch the stone. Empty your bladder often. Avoid holding urine for long periods of time. If you are female: ?After a bowel movement, wipe from front to back and use each piece of toilet paper only once. ?Empty your bladder before and after sex. Pay attention to any changes in your symptoms. Tell your health care provider about any changes or any new symptoms. It is up to you to get the results of any tests. Ask your health care provider, or the department that is doing the test, when your results will be ready. Keep all follow-up visits. This is important. Contact a health care provider if: You develop back pain. You have a fever or chills. You have nausea or vomiting. Your symptoms do not improve after 3 days. Your symptoms get worse. Get help right away if: You develop severe vomiting and are unable to take medicine without vomiting. You develop severe pain in your back or abdomen even though you are taking medicine. You pass a large amount of blood in your urine. You pass blood clots in your urine. You feel very weak or like you might faint. You faint. Summary Hematuria is blood in the urine. It has many possible causes. It is very important that you tell your health care provider about any blood in your urine, even if it is painless or the blood stops without treatment. Take yiej-rbk-bzigftd and prescription medicines only as told by your health care provider. Drink enough fluid to keep your urine pale yellow. This information is not intended to replace advice given to you by your health care provider. Make sure you discuss any questions you have with your health care provider. Document Revised: 07/11/2021 Document Reviewed: 07/11/2021 LogMeIn Patient Education 2023 [employer]. Follow Up Care 07/01/2025 09:49:17 With:Josh INFANTE, SOLITARIO Solis, URO Address: [address] [place] [place] [phone] When: Unknown Comments:f/u pending CTU [facility] 07-13-2025 Note Urology Office/Clini c Note Chief Complaint re-referral for gross hematuria and kidney stones HPI Staff Re-referral for kidney stones and gross hematuria. Pt last seen in office by KML 10/02/22. PHYLLIS done 06/25/25 at [facility] Previous dx: kidney stones, hx of recurrent UTI and asymptomatic microhematuria Pt states that she began seeing blood in her urine, passing small clots and having pain on the left side on June 17. She called Dr Mtz's office and although he did not see her in office he sent an antibiotic for her and ordered a PHYLLIS. He gave her Tamsulosin in case she was passing a stone and Cipro 500 BID for 10 days which she finished all of. States that she has not seen anymore blood since finishing the Cipro but is still having pain on the left that comes and goes. BBS is 10 today. Denies any issues with leakage. Overall feels her bladder control is good. History of Present Illness Tests reviewed: reviewed UA, op note, external referral records, PHYLLIS I have reviewed the previous health record information and history for this patient from Dr. Moreno and external providers. I have reviewed and verified the staff HPI to be accurate for this encounter. Review of Systems PHQ Score Initial Depression Screen Score: 0 SCORE ROS - Provider Constitutional: denies weight loss, denies hot flashes. Eyes: denies eye problems. Gastrointestinal: denies nausea, denies vomiting. Cardiovascular: denies chest pain or angina. Integumentary: no dryness Musculoskeletal: denies musculoskeletal symptoms. ENMT: denies otolaryngeal symptoms. Respiratory: no shortness of breath. Heme/Lymph: denies easy bleeding tendency, denies easy bruising tendency. Psychiatric: no confusion, no anxiety. Genitourinary: See HPI. Physical Exam Vitals & Measurements T: 37 ???C(Temporal Artery) HR: 68(Peripheral) RR: 16 BP: 110/69 HT: 161 cm HT: 63 in WT: 59.5 kg WT: 131.175 lb BMI: 22.95 General Appearance: alert , no acute distress, well nourished, well developed female. Assessment/Plan 40 yo F re-referred for kidney stones and gross hematuria. Last seen 10/02/22. 1. Kidney stones (N20.0: Calculus of kidney) PHYLLIS 06/25/25 [facility] - 5 mm LIP stone. Personal review: 5 x 2 mm L renal stone. No hydro. RLP caliectasis. Stable since 2021 UA shows moderate blood. Passed blood clots when she voided. Did not notice any stones. Then started having nausea, chills, and headache. PCP rx'd Cipro, no ucx done, but pain improved. Prior to hematuria episode, pain was bilateral. Right side at the time of PHYLLIS. Now having intermittent L flank pain. Reviewed imaging results. Discussed no ureteral stone was visualized. Recommended CTU to further evaluate and r/o obstruction including stricture and hematuria etiology given prior evaluation without contrast neg. Drinking 3 bottles of water daily. -Schedule CTU @ [facility]. Will call pt with results. -Urine sample to be sent for cytology, call with results -Increase water intake Ordered: CT Urogram Urnls Dip Stick Auto w/o Microscopy POC 74541 2. Gross hematuria (R31.0: Gross hematuria) S/p Cysto 12/16/22 - Mild bladder neck hyperemia, squamous metaplasia. No bladder tumors, lesions or foreign bodies. See #1. Will hold off on repeat cysto Ordered: CT Urogram 3. Left flank pain (R10.9: Unspecified abdominal pain) No recurrence since 2021. Still mild. See #1 Follow-up With When Contact Information Josh INFANTE, Krystyna Barillas, URL, URO [address] [facility], [place] [phone] Additional Instructions: f/u pending CTU Patient Education Kidney Stones, Vwqb-xp-Feve Hematuria, Adult I, Gunjan Lock, personally scribed for Dr. Moreno on 07/13/2025 09:51:30. . Documentation recorded by the scribe, Gunjan Lock, accurately reflects the services(s) I performed and decisions made by me. Authenticated by Dr. Moreno on 07/13/2025 10:01:55. Problem List/Past Medical History Ongoing Asymptomatic microscopic hematuria Gross hematuria History of recurrent UTIs Kidney stones Historical No qualifying data Procedure/Surgical History Abdominal hysterectomy, Tonsillectomy. Medications Crestor 5 mg Tab, Oral, Daily Fioricet, Oral, q4hr Protonix 40 mg Tab-DR, Oral, Daily SEROquel 50 mg Tab, Oral, BID Zoloft 100 mg Tab, Oral, Daily Allergies meperidine (Unknown) penicillin (Unknown) Social History Alcohol Never., 07/08/2025 Substance Abuse Never., 07/08/2025 Tobacco Never (less than 100 in lifetime) Tobacco Use:. Never Smokeless Tobacco Use:. Household tobacco concerns: No., 07/13/2025 Family History Heart disease: Father. High blood pressure: Father. High cholesterol: Father. Migraine: Mother. Stroke: Mother. Immunizations Vaccine Date Status Comments SARS-CoV-2 (COVID-19) mRNAMUL.ORD![id number] 09/09/2022 Given Prophylaxis influenza virus vaccine, inactivated 09/09/2022 Given Prophylaxis SARS-CoV-2 (COVID-19) mRNA BN (more content not included)... [facility] Comment on above: Result Comment: Elec tronically Signed By: Krystyna Moreno MD\.br\Date and Time Signed: 07/13/25 10:02 EDT\.br\Electronically Co-Signed By: Gunjan Lock\.br\Date and Time Co-Signed: 07/13/25 09:52 EDT 07-13-2025 Note Patient Education Urology Kidney Stones Kidney stones are rock-like masses that form inside of the kidneys. Kidneys are organs that make pee (urine). A kidney stone may move into other parts of the urinary tract, including: ??? The tubes that connect the kidneys to the bladder (ureters). ??? The bladder. ??? The tube that carries urine out of the body (urethra). Kidney stones can cause very bad pain and can block the flow of pee. The stone usually leaves your body through your pee. A doctor may need to take out the stone. What are the causes? Kidney stones may be caused by: ??? Too much calcium in the body. This may be caused by too much parathyroid hormone in the blood. ??? Uric acid crystals in the bladder. The body makes uric acid when you eat certain foods. ??? Narrowing of one or both of the ureters. ??? A kidney blockage that you were born with. ??? Past surgery on the kidney or the ureters. What increases the risk? You are more likely to develop this condition if: ??? You have had a kidney stone in the past. ??? Other people in your family have had kidney stones. ??? You do not drink enough water. ??? You eat a diet that is high in protein, salt (sodium), or sugar. ??? You are very overweight (obese). What are the signs or symptoms? Symptoms of a kidney stone may include: ??? Pain in the side of the belly, right below the ribs. Pain usually spreads to the groin. ??? Needing to pee often or right away. ??? Pain when peeing. ??? Blood in your pee. ??? Feeling like you may vomit (nauseous). ??? Vomiting. ??? Fever and chills. How is this treated? Treatment depends on the size, location, and makeup of the kidney stones. The stones will often pass out of the body when you pee. You may need to: ??? Drink more fluid to help pass the stone. ? In some cases, you may be given fluids through an IV tube at the hospital. ??? Take medicine for pain. ??? Change your diet to help keep kidney stones from coming back. Sometimes, you may need: ??? A procedure to break up kidney stones using a beam of light (laser) or shock waves. ??? Surgery to remove the kidney stones. Follow these instructions at home: Medicines ??? Take sfqw-qid-jjxsegq and prescription medicines only as told by your doctor. ??? Ask your doctor if the medicine prescribed to you requires you to avoid driving or using machinery. Eating and drinking ??? Drink enough fluid to keep your pee pale yellow. ? You may be told to drink at least 8?10 glasses of water each day. This will help you pass the stone. ??? If told by your doctor, change your diet. You may be told to: ? Limit how much salt you eat. ? Eat more fruits and vegetables. ? Limit how much meat, poultry, fish, and eggs you eat. ??? Follow instructions from your doctor about what you may eat and drink. General instructions ??? Collect pee samples as told by your doctor. You may need to collect a pee sample: ? 24 hours after a stone comes out. ? 8?12 weeks after a stone comes out, and every 6?12 months after that. ??? Strain your pee every time you pee. Use the strainer that your doctor recommends. ??? Do not throw out the stone. Keep it so that it can be tested by your doctor. ??? Keep all follow-up visits. You may need X-rays and ultrasounds to make sure the stone has come out. How is this prevented? To prevent another kidney stone: ??? Drink enough fluid to keep your pee pale yellow. This is the best way to prevent kidney stones. ??? Eat healthy foods. ??? Avoid certain foods as told by your doctor. You may be told to eat less protein. ??? Stay at a healthy weight. Where to find more information ??? National Kidney Foundation (NKF): kidney.org ??? U[employer] Care Foundation (UCF): urologyhealth.org Contact a doctor if: ??? You have pain that gets worse or does not get better with medicine. Get help right away if: ??? You have a fever or chills. ??? You get very bad pain. ??? You get new pain in your belly. ??? You faint. ??? You cannot pee. This information is not intended to replace advice given to you by your health care provider. Make sure you discuss any questions you have with your health care provider. Document Revised: 2023 Document Reviewed: 2023 LogMeIn Patient Education ? 2023 [place]. Hematuria, Adult Hematuria is blood in the urine. Blood may be visible in the urine, or it may be identified with a test. This condition can be caused by infections of the bladder, urethra, kidney, or prostate. Other possible causes include: ??? Kidney stones. ??? Cancer of the urinary tract. ??? Too much calcium in the urine. ??? Conditions that are passed from parent to child (inherited conditions). ??? Exercise that requires a lot of energy. Infections can usually be treated with medicine, and a kidney stone usually will pass through your urin (more content not included)... [facility] 12-16-2022 Hospital Discharge instructions Patient Education 12/16/2022 09:29:34 EU - [...] Up Care 12/03/2022 15:34:59 With:Krystyna Moreno Address: [address] [place] [phone] Business (1) [address], [address] [phone] [place] (1) When: Unknown Comments:Office to schedule follow up in 3-6 months [facility] 03-20-2022 Hospital Discharge instructions Patient Education 03/20/2022 10:54:59 Kidney Stones, Wbqs-ky-Waxy Kidney Stones Kidney stones are rock-like masses [...] Follow these instructions at home: Medicines Take xwgb-lik-xhfstlk and prescription medicines only as told by [...] 04/28/2009 Document Revised: 03/28/2020 Document Reviewed: 03/28/2020 LogMeIn Patient Education 2020 [employer]. Follow Up Care 02/21/2022 14:34:05 With:Krystyna Moreno MD, JADEN, URO Address: When:05/01/2022 Comments:will schedule MRI and KUB [facility] Evaluation + Plan note Future Appointments Appointment Date:10/02/2022 09:15:00 AM Scheduled Provider:Krystyna Moreno MD Location:[facility] Appointment Type:URO Office Visit [facility] Evaluation + Plan note Future Appointments Appointment Date:03/12/2023 10:45:00 AM Scheduled Provider:Krystyna Moreno MD Location:[facility] Appointment Type:URO Office Visit Appointment Date:10/08/2023 10:00:00 AM Scheduled Provider:Krystyna Moreno MD Location:[facility] Appointment Type:URO Office Visit [facility] Evaluation note No Information [facility] [employer] Other History general Narrative - Reported Type Medical History high cholesterol Medical History Gestational diabetes - yes Medical History chronic depression Medical History anxiety Medical History migraine headaches Surgical History hysterectomy Surgical History tonsillectomy Surgical History 3 c-sections [facility] Joinnus Other Hospital course Narrative No data available for this section [facility] Hospital Discharge instructions No data available for this section [facility] progress note No data available for this section [facility] Summary Purpose Family History No Family History Records Found No data available for this section No Family History Records Found No data [...] and content) DATE CREATED AUTHOR 10/07/2022 [facility] DATE CREATED AUTHOR AUTHOR'S ORGANIZ ATION 06/11/2024 [facility] EPIC DATE CREATED AUTHOR AUTHOR'S ORGANIZ ATION 07/14/2025 [facility] DATE CREATED AUTHOR AUTHOR'S ORGANIZ ATION 07/19/2025 [facility] Patient Care team informatio n (unrecognized section and content) Personnel Name: Sadia Mtz MD Address: Address: [address] [place] [address] Personnel Name: Sadia Mtz MD Address: Address: [address] [place] [address] Personnel Name: Sadia Mtz MD Address: [address] [place] [address] [employer]: FOR RECORDS PERTAINING TO PATIENTS WHO ARE [...] BE BASED ON THE PRIMARY CLINICAL RECORDS. [facility]. provides no warranty or guarantee of the accuracy or completeness of information in this document.
--- NOTE | 2025-08-11 10:08 | CT_ITS ---
The [address] [address] Patient Name: GRETA BEGUM MRN: [id number] date: 1985 Sex: F Assigned Patient Location: CT Current Patient Location: CT Accession/Order Number: [id number] Exam Date: 08/11/2025 09:45 Report Date: 08/11/2025 10:37 At the request of: JUMANA CHURCH MD Procedure: CT abdomen pelvis wo/w con CT ABDOMEN PELVIS WITHOUT AND WITH INTRAVENOUS CONTRAST COMPARISON: 02/15/2022 CLINICAL DATA: Gross hematuria, left flank pain and history of renal stones. Spiral images were obtained through the abdomen and pelvis before and after intravenous administration of 100 mL of Omnipaque 300. This CT exam was performed using one or more following dose reduction techniques: Automated exposure control, adjustment of the mA and/or kV according to patient size, or use of iterative reconstruction technique. Limited cuts through the lung bases show no contributory pulmonary findings. There is a granuloma in the right infrahilar region. The kidneys are within normal limits for size, position and contour. Precontrast, there is a tiny left lower pole stone measuring 3 mm in size. There is also a tiny 3 - 4 mm hypodense nodule at the lower pole on that side which may be a hemorrhagic cyst. No ureteral or bladder stones are visualized. Following contrast administration, the renal nephrograms are symmetric. No solid renal mass lesions are visualized. No hydronephrosis is seen. The uterus are segmentally opacified down to the bladder. The urinary bladder is not fully distended and the wall appears thickened. No intraluminal abnormalities are noted. No calcified gallstones are identified. A tiny right hepatic cyst is visualized toward the dome. The spleen, pancreas and adrenal glands show no acute findings. The abdominal aorta is normal caliber. Tiny lymph nodes are present. No ascites is seen. There is a tiny umbilical hernia containing fat. The small bowel loops are not distended. Air and moderate stool are visualized throughout the colon, greater on the right. There is subtle thoracolumbar dextroscoliotic curvature and minor degenerative change at the spine. Images through the pelvis show normal caliber small bowel loops, some containing fluid. The appendix is not definite seen. There is air at the rectum and minimal stool at the sigmoid colon. No colonic diverticula are identified. The uterus is surgically absent. There is no ascites. CT/CT abdomen pelvis wo/w con IMPRESSION: LEFT NEPHROLITHIASIS AND TINY SUSPECTED HEMORRHAGIC CYST. NO OBSTRUCTIVE UROPATHY. UNDER DISTENDED URINARY BLADDER WITH APPARENT WALL THICKENING. MODERATE COLONIC STOOL. NO OTHER ACUTE FINDINGS. Impression dictated by: Anna Aguirre M.D. 08/11/2025 10:37 AM Dictation Location: [place] [address] Electronically authenticated by: [id number] Y Date: 08/11/2025 10:37
== END 2025-08-11 09:28 | disposition home or self-care (01) ==
LOC: CT 09:27
PROVIDERS: PCP Family Medicine; Visit Provider Urology
DX: R31.0 Gross hematuria (principal); N20.0 Calculus of kidney
CPT/HCPCS: 74178; Q9967

== ENCOUNTER 2025-11-15 09:59 | Outpatient (OUT) | payer OTHER, SELFPAY ==
--- OUTSIDE RECORDS SUMMARY | 2025-11-15 10:03 | XMS_ITS | Clinical Summary ---
Author Organization [facility] Address [address] [place] [address] Care Team Providers Care Planning Management It Specialist Name Role Phone Silverio Mtz MD Primary Care Provider [phone] Allergies Active AllergyReactionsCriticalityNoted DateCommentsAmoxicillinShortness of lxdinjYrax31/10/7851Qfrjkqwoor68/10/5480Nxpfelopxol44/10/2024 Medications MedicationSigDispense QuantityRefillsLast FilledStart DateEnd DateStatus Ajovy 225 MG/1.5ML auto-injector DIRECTED SUBCUTANEOUS ONCE MONTHLY 30 DAYS02/19/2024ctive pantoprazole (ProtoNix) 40 MG EC tablet Take 40 mg by mouth Daily02/02/2024ctive QUEtiapine (SEROquel) 50 MG tablet Take 75 mg by mouth at fvglyxg8002/16/2024ctive rosuvastatin (Crestor) 5 MG tablet Take 5 mg by mouth Daily02/02/2024ctive sertraline (Zoloft) 100 MG tablet TAKE TWO TABLETS BY MOUTH DAILY 30002/16/2024ctive naratriptan (Amerge) 1 MG tablet Indications:Chronic migraine without aura without status migrainosus, not intractableTake 1 tablet by mouth as needed at the onset of migraine. May repeat dose (1 tablet) once after 4 hours if migraine persists. Take no more than 2 doses in 24 hours. Take no more than 2 times per week. 9 tablet ctive Active Problems ProblemNoted DateDiagnosed AsukZdlcxfmn12/10/2024hronic migraine without aura without status migrainosus, not kgylmlxhqhf44/10/2024Generalized anxiety rjnkhlyj78/10/2024Major depressive disorder, recurrent, mild06/02/2024 Family History Medical HistoryRelationNameCommentsHypertensionFatherHyperlipidemiaMother MigrainesMotherStrokeMotherDepressionSisterSeizuresSisterRelationNameStatus CommentsFatherMotherSister Social History Tobacco UseTypesPacks/DayYears UsedDateSmoking Tobacco: NeverSmokeless Tobacco: Never Tobacco Cessation:Counseling Given: Not Answered Alcohol UseStandard Drinks/WeekCommentsYes6 (1 standard drink = 0.6 oz pure alcohol)caffeine 1-2 cups per dayCommentsUnknownSex and Gender InformationValueDate RecordedSex Assigned at BirthNot on fileLegal SexFemale 02/05/2023 11:47 PM EDTGender IdentityNot on fileSexual OrientationNot on file Last Filed Vital Signs Vital SignReadingTime TakenCommentsBlood Wyxjegxt962/7807 2:39 PM EDT Uxcbd401906/07/2024 2:39 PM EDTTemperature--Respiratory Oout086806/07/2024 2:39 PM EDTOxygen Saturation--Inhaled Oxygen Concentration--Rzaltu85.9 kg (125 lb 6.4 oz)06/07/2024 2:39 PM VDUAvhjlx317 cm (5' 3 )06/07/2024 2:39 PM EDTBody Mass Index22.21006/07/2024 2:39 PM EDT Plan of Treatment Not on file Insurance [place] DEBBIE [id number] Care Teams Team MemberRelationshipSpecialtyStart Date Silverio Mtz MD PCP - GeneralFamily Medicine3/28/24
[2025-11-15 10:28] LABS: Hematocrit 40.6 % (36.0-48.0); Hemoglobin 13.9 g/dL (12.0-16.0); Immature Granulocytes Abs Auto 0.01 10^3/uL (0.00-0.03); Immature Granulocytes Pct Auto 0.2 % (0.0-0.5); Lymphocytes Absolute Auto 1.9 10^3/uL (1.2-3.8); Mean Corpuscular HGB Conc 34.2 g/dL (29.9-35.2); Mean Corpuscular Hemoglobin 28.8 pg (26.7-34.0); Mean Corpuscular Volume 84.1 fL (81.0-99.0); Platelet Count 206 10^3/uL (150-450); Red Blood Count 4.83 10^6/uL (4.20-5.40); White Blood Count 5.6 10^3/uL (4.0-11.0)
[2025-11-15 11:03] LABS: Alanine Aminotransferase 18 U/L (14-59); Albumin Globulin Ratio 1.3; Albumin Level 4.2 g/dL (3.4-5.0); Alkaline Phosphatase 113 U/L (46-116); Anion Gap 9.7; Aspartate Amino Transferase 14 U/L (15-37); Blood Urea Nitrogen 15.0 mg/dL (7.0-18.0); Calcium 9.4 mg/dL (8.5-10.1); Carbon Dioxide 33.3 mmol/L (21.0-32.0); Chloride 104 mmol/L (98-107); Cholesterol 197 mg/dL (<=200); Estimated GFR (African America >60 (>=60 mL/min/1.73m^2); Estimated GFR (Non-African Ame >60 (>=60 mL/min/1.73m^2); Free T3 2.70 pg/mL (2.18-3.98); Globulin 3.2 g/dL; Glucose 105 mg/dL (74-106); HDL Cholesterol 77 mg/dL (40-60); Potassium 4.0 mmol/L (3.5-5.1); Sodium 143 mmol/L (136-145); Thyroid Stimulating Hormone 2.214 uIU/mL (0.358-3.740); Total Protein 7.4 g/dL (6.4-8.2); Triglycerides 71 mg/dL (<=150); VLDL CHOLESTEROL 14.2 mg/dL
== END 2025-11-15 10:00 | disposition home or self-care (01) ==
LOC: LAB 10:01
PROVIDERS: PCP Family Medicine; Visit Provider Family Medicine
DX: Z00.00 Encounter for general adult medical examination without abnormal findings (principal); E78.00 Pure hypercholesterolemia, unspecified; Z79.899 Other long term (current) drug therapy; R73.09 Other abnormal glucose; E03.9 Hypothyroidism, unspecified
CPT/HCPCS: 36415; 80053; 80061; 83036; 84436; 84443; 84481; 85025